=== PATIENT | male | born 1955 | race Caucasian/White ===

== ENCOUNTER 2022-07-08 06:25 | Day surgery (SDC) | payer OTHER, SELFPAY ==
[2022-07-08] VITALS (7 sets, daily range): BP systolic 97–148; BP diastolic 39–72; PULSE 52–60; RESP 12–18; TEMP 36.1–36.4; O2SAT 93–97; BMI 44.2
--- NOTE | 2022-07-08 06:56 | PCM.HP.STD ---
[facility] - General General Date of Service: 07/08/22 Chief Complaint: Screening for intestinal cancer [facility] Narrative NATALEE GALICIA, is a 66 M who presents for screening colonoscopy today. He has never had a previous one. He denies any abdominal pain. No bright red blood per rectum or melena. He does have chronic pulmonary disease. He does have morbid obesity. He denies family history of colon cancer. [facility] Medical History (Updated 07/05/22 @ 09:54 by Yarelis Marina) Arthritis Asthma Cardiology follow-up encounter COPD (chronic obstructive pulmonary disease) CPAP (continuous positive airway pressure) dependence Diabetes High cholesterol History of edema History of kidney stones History of pain when walking Hypertension Kidney stones Sleep apnea Sleep apnea with use of continuous positive airway pressure (CPAP) Wears dentures Wears glasses Home Medications aspirin 81 mg capsule 81 mg PO DAILY 08/23/21 [History Last Taken Unknown] cinnamon bark 500 mg capsule (Cinnamon) 1,000 mg PO DAILY 08/23/21 [History Last Taken Unknown] fluticasone furoate 200 mcg-vilanterol 25 mcg/dose inhalation powder (Breo Ellipta) 1 inh inhalation DAILY 08/23/21 [History Last Taken Unknown] multivitamin 1 tab PO DAILY 08/23/21 [History Last Taken Unknown] losartan 25 mg tablet 25 mg PO DAILY #90 tabs 01/05/22 [Rx Last Taken Unknown] carvedilol 12.5 mg tablet 12.5 mg PO BID #180 tabs 02/07/22 [Rx Last Taken Unknown] furosemide 20 mg tablet 20 mg PO MOTUWETHFR 07/05/22 [History Last Taken Unknown] Allergy/AdvReac Type Severity Reaction Status Date / Time azithromycin [From Zithromax] Allergy Unknown rash Verified 07/05/22 09:44 Family History Father Heart disease Mother Heart disease Surgical History (Updated 07/05/22 @ 09:54 by Yarelis Marina) History of cardiac catheterization History of carpal tunnel release History of cataract extraction History of hernia repair History of knee surgery History of total right knee replacement Social History Smoking Status: Never smoker alcohol intake: never substance use type: does not use what type of physical activity do you participate in: none ROS Constitutional Constitutional: Reports systems reviewed and no addt'l complaints, except as documented Cardiovascular Cardiovascular: Denies chest pain Respiratory/Chest Respiratory/Chest: Denies shortness of breath at rest Gastrointestinal Gastrointestinal: Denies abdominal pain, change in bowel habits, hematochezia or melena Physical Exam Const alert, oriented x3 and no apparent distress Constitutional Narrative: Morbidly obese. Unable to detect any internal organs on exam General Appearance: cooperative and comfortable Eyes General Eye: normal appearance of both eyes Neck General: normal visual inspection Chest inspection of chest normal Resp Effort and Inspection: able to speak in complete sentences and symmetric chest movement Auscultation: clear to auscultation bilaterally Cardio regular rate and regular rhythm GI soft to palpation, non-tender and non-distended Extremity no calf tenderness Neuro oriented x3 Psych thought process normal Assessment & Plan Assessment/Plan (1) Colon cancer screening: PLAN: 66-year-old gentleman presents for screening colonoscopy with possible biopsy or polypectomy as indicated. He has never had a previous one. He presents via open access today. He is aware of the technique, benefit, risk, alternatives. We will proceed as noted. Zachery Da Silva M.D., F.A.C.S.
[2022-07-08] MEDS: Lactated Ringers 1,000 ML 15 ML IV (07:12)
--- NOTE | 2022-07-08 07:30 | COLBX_PTH ---
PATIENT: NATALEE GALICIA LOC: EN U#:[id number] AGE/SX: 66/M ROOM: RE07/08/[address]: Dr. Zachery Da Silva MD : 1955 BED: DIS: 07/08/2022 SPEC #: [id number] RECD: 07/08/22 10:50 STATUS: AJIT JOSE #: [id number] ZEUS: 07/08/22 07:[address]: Zachery Da Silva DEPT: SURGICAL PATHOLOGY RECD BY: Lacie Cabrera ENTERED: 07/08/22 11:42 SP TYPE: COLON BX OTHR DR: Dr. Brandee Mejía MD Tissues: A - Cecum, NOS B - Ascending colon C - Transverse colon D - Transverse colon E - Rectum, NOS Procedures: Surgery Specimen Level IV HEADER OPERATION: Colonoscopy ? open access (MAC), biopsy, polypectomy PRE-OP DIAGNOSIS: Colon cancer screening TISSUE SUBMITTED: A ? Cecum polyps (x6) snare and biopsy, B ? Ascending polyp, C ? Proximal transverse polyp, D ? Mid transverse polyp, E ? Rectum polyp MICROSCOPIC DIAGNOSIS A. Cecum polyps, biopsy: Fragments of tubular adenoma. B. Ascending colon polyp, biopsy: Fragments of tubular adenoma. C. Proximal transverse colon polyp, biopsy: Fragments of tubular adenoma. D. Mid transverse colon polyp, biopsy: Fragments of tubular adenoma. Fragments of fecal material. E. Rectum polyp, polypectomy: Tubular adenoma. SJ:delmi 07/11/2022 MICROSCOPIC DESCRIPTION Slides are reviewed. GROSS DESCRIPTION A - Received in fixative is one container labeled with the patient's name and designated cecum polyp. The specimen consists of multiple irregular fragments of light landin soft tissue that in aggregate measure 2.5 x 0.5 x 0.1 cm. The specimen is totally submitted in one cassette. B - Received in fixative is one container labeled with the patient's name and designated ascending polyp. The specimen consists of two irregular fragments of light landin soft tissue that in aggregate measure 0.6 x 0.3 x 0.1 cm. The specimen is totally submitted in one cassette. C - Received in fixative is one container labeled with the patient's name and designated proximal transverse polyp. The specimen consists of two irregular fragments of light landin soft tissue that in aggregate measure 0.4 x 0.1 x 0.1 cm. The specimen is totally submitted in one cassette. D - Received in fixative is one container labeled with the patient's name and designated mid transverse polyp. The specimen consists of multiple irregular fragments of light landin soft tissue that in aggregate measure 2.5 x 0.5 x 0.1 cm. The specimen is totally submitted in one cassette. E - Received in fixative is one container labeled with the patient's name and designated rectum polyp. The specimen consists of a landin-pink polyp measuring 1.0 x 1.0 x 0.7 cm. The presumed base is inked. The polyp is serially sectioned. The entire specimen is submitted in one cassette. / SJ:delmi 07/08/2022 TC:1 CPT: 57234 x5
[2022-07-08 07:40] LABS: Bedside Glucose 167 mg/dL (74-106)
[2022-07-08] MEDS: 0.9% Saline Lock 10 ML Syringe IV (08:32)
--- NOTE | 2022-07-08 08:40 | OP.COLON_ITS ---
Patient Name: Otto Yusuf Procedure Date: 07/08/2022 7:24 AM Date of : 1955 Age: 66 Procedure: Colonoscopy Indications: Screening for colorectal malignant neoplasm Providers: Zachery Da Silva MD Medicines: See the Anesthesia note for documentation of the administered medications Patient Profile: Last Colonoscopy: none. The patient's first colonoscopy is today. Complications: No immediate complications. Procedure: Pre-Anesthesia Assessment: - Prior to the procedure, a History and Physical was performed, and patient medications and allergies were reviewed. The patient's tolerance of previous anesthesia was also reviewed. The risks and benefits of the procedure and the sedation options and risks were discussed with the patient. All questions were answered, and informed consent was obtained. Prior Anticoagulants: The patient has taken no previous anticoagulant or antiplatelet agents. ASA Grade Assessment: III - A patient with severe systemic disease. After reviewing the risks and benefits, the patient was deemed in satisfactory condition to undergo the procedure. After I obtained informed consent, the scope was passed under direct vision. Throughout the procedure, the patient's blood pressure, pulse, and oxygen saturations were monitored continuously. The adult colonoscope was introduced through the anus and advanced to the cecum, identified by appendiceal orifice and ileocecal valve. The colonoscopy was unusually difficult due to the patient's body habitus. The patient tolerated the procedure well. The quality of the bowel preparation was adequate to identify polyps. The ileocecal valve and the appendiceal orifice were photographed. Scope In: 7:30:59 AM Scope Withdrawal Time 0 hours 47 minutes 13 seconds Scope Out: 8:27:41 AM Total Procedure Duration Time 0 hours 56 minutes 42 seconds Findings: The digital rectal exam findings include non-thrombosed external hemorrhoids, non-thrombosed internal hemorrhoids and internal hemorrhoids that prolapse with straining, but require manual replacement into the anal canal (Grade III). Pertinent negatives include normal prostate (size, shape, and consistency). Four sessile polyps were found in the cecum. The polyps were 4 to 5 mm in size. These polyps were removed with a cold biopsy forceps. Resection and retrieval were complete. Two sessile polyps were found in the cecum. The polyps were 4 to 5 mm in size. These polyps were removed with a hot snare. Resection and retrieval were complete. A 8 mm polyp was found in the proximal ascending colon. The polyp was sessile. The polyp was removed with a cold biopsy forceps. Polyp resection was incomplete, and the resected tissue was partially retrieved. A 5 mm polyp was found in the mid transverse colon. The polyp was sessile. The polyp was removed with a hot snare. Resection and retrieval were complete. A 5 mm polyp was found in the proximal transverse colon. The polyp was sessile. The polyp was removed with a hot snare. Resection and retrieval were complete. A 9 mm polyp was found in the rectum. The polyp was sessile. The polyp was removed with a hot snare. The polyp was removed with a saline injection-lift technique using a hot snare. Resection and retrieval were complete. Scattered diverticula were found in the sigmoid colon. Impression: - Non-thrombosed external hemorrhoids, non-thrombosed internal hemorrhoids and internal hemorrhoids that prolapse with straining, but require manual replacement into the anal canal (Grade III) found on digital rectal exam. - Four 4 to 5 mm polyps in the cecum, removed with a cold biopsy forceps. Resected and retrieved. - Two 4 to 5 mm polyps in the cecum, removed with a hot snare. Resected and retrieved. - One 8 mm polyp in the proximal ascending colon, removed with a cold biopsy forceps. Polyp resection was incomplete, and the resected tissue was partially retrieved. - One 5 mm polyp in the mid transverse colon, removed with a hot snare. Resected and retrieved. - One 5 mm polyp in the proximal transverse colon, removed with a hot snare. Resected and retrieved. - One 9 mm polyp in the rectum, removed with a hot snare and removed using injection-lift and a hot snare. Resected and retrieved. - Diverticulosis in the sigmoid colon. Recommendation: - Discharge patient to home. - Resume previous diet. - Continue present medications. - Repeat colonoscopy in 1 year for surveillance. - Telephone my office for pathology results in 1 week. Procedure Code(s): --- Professional --- 49632, Colonoscopy, flexible; with removal of tumor(s), polyp(s), or other lesion(s) by snare technique 38001, 59, Colonoscopy, flexible; with biopsy, single or multiple 63024, Colonoscopy, flexible; with directed submucosal injection(s), any substance Diagnosis Code(s): --- Professional --- Z12.11, Encounter for screening for malignant neoplasm of colon K64.2, Third degree hemorrhoids K64.4, Residual hemorrhoidal skin tags D12.0, Benign neoplasm of cecum D12.2, Benign neoplasm of ascending colon D12.3, Benign neoplasm of transverse colon (hepatic flexure or splenic flexure) K62.1, Rectal polyp K57.30, Diverticulosis of large intestine without perforation or abscess without bleeding CPT copyright 2017 [employer]. All rights reserved. The codes documented in this report are preliminary and upon founder and ceo review may be revised to meet current compliance requirements. Zachery Da Silva MD 07/08/2022 8:40:04 AM This report has been signed electronically. Number of Addenda: 0 Note Initiated On: 07/08/2022 7:24 AM
--- NOTE | 2022-07-08 08:41 | OP.CCLET_ITS ---
07/08/2022 Brandee Mejía [facility] [address] [place] [address] Re : Colonoscopy procedure for Otto Yusuf Dear Dr. Mejía This procedure was performed on Friday, July 08, 2022. My impressions and recommendations are as follows: Impressions : - Non-thrombosed external hemorrhoids, non-thrombosed internal hemorrhoids and internal hemorrhoids that prolapse with straining, but require manual replacement into the anal canal (Grade III) found on digital rectal exam. - Four 4 to 5 mm polyps in the cecum, removed with a cold biopsy forceps. Resected and retrieved. - Two 4 to 5 mm polyps in the cecum, removed with a hot snare. Resected and retrieved. - One 8 mm polyp in the proximal ascending colon, removed with a cold biopsy forceps. Polyp resection was incomplete, and the resected tissue was partially retrieved. - One 5 mm polyp in the mid transverse colon, removed with a hot snare. Resected and retrieved. - One 5 mm polyp in the proximal transverse colon, removed with a hot snare. Resected and retrieved. - One 9 mm polyp in the rectum, removed with a hot snare and removed using injection-lift and a hot snare. Resected and retrieved. - Diverticulosis in the sigmoid colon. Recommendations : - Discharge patient to home. - Resume previous diet. - Continue present medications. - Repeat colonoscopy in 1 year for surveillance. - Telephone my office for pathology results in 1 week. My findings are described in the full procedure note, which is enclosed. If I can be of further assistance, please feel free to contact me at Doctor phone number(s): Work: . Sincerely, Zachery Da Silva MD 07/08/2022 8:40:04 AM This report has been signed electronically.
== END 2022-07-08 09:32 | disposition home or self-care (01) ==
LOC: EN 06:30 → AC 06:32
PROVIDERS: PCP Internal Medicine; Referring Provider Internal Medicine; Visit Provider Surgery
PROC: 0DJD8ZZ Inspection of Lower Intestinal Tract, Via Natural or Artificial Opening Endoscopic (ICD-10-PCS; CPT 45378; principal; 2022-07-08 07:25)
DX: Z12.11 Encounter for screening for malignant neoplasm of colon (principal); J44.9 Chronic obstructive pulmonary disease, unspecified; E66.01 Morbid (severe) obesity due to excess calories; Z68.41 Body mass index [BMI] 40.0-44.9, adult; K57.30 Diverticulosis of large intestine without perforation or abscess without bleeding; K64.2 Third degree hemorrhoids; K64.4 Residual hemorrhoidal skin tags; I10 Essential (primary) hypertension; G47.30 Sleep apnea, unspecified; Z79.899 Other long term (current) drug therapy; Z79.82 Long term (current) use of aspirin; D12.0 Benign neoplasm of cecum; D12.2 Benign neoplasm of ascending colon; D12.3 Benign neoplasm of transverse colon; D12.8 Benign neoplasm of rectum
CPT/HCPCS: 45385; 45380; 45381; 82962; 88305; J7120; A4216; J2405

== ENCOUNTER → 2022-07-28 | Outpatient (CLI) | payer OTHER, SELFPAY ==
--- NOTE | 2022-07-28 13:06 | RAD_ITS ---
INDICATION: PRE OP EXAMINATION/TECHNIQUE: X-RAY - XR Chest 2 Views COMPARISON: None. FINDINGS: LINES/DEVICES: None. LUNGS: No consolidation, edema or effusion. No pneumothorax. MEDIASTINUM AND CARDIOVASCULAR STRUCTURES: Cardiac silhouette not enlarged. Central airways and mediastinal contour are unremarkable. BONES AND SOFT TISSUES: Unremarkable. RAD/Chest PA and Lateral IMPRESSION: No radiographic evidence of acute cardiopulmonary disease. Electronically Signed: Colette Florentino MD at 19:16 EDT Reading Location ID and State: [id number] / Tel , Service support ,
[2022-07-28 13:34] LABS: Absolute Lymphocyte Count 1.85 X10^3/uL (0.83-4.51); Absolute Neutrophil Count 3.9 X10^3/uL (2.0-7.7); Basophil# 0.04 X10^3/uL; Basophil% 0.6 % (0-1); Eosinophil# 0.17 X10^3/uL; Eosinophils% 2.6 % (0-5); Hematocrit 44.1 % (40-54); Hemoglobin 14.7 g/dL (13.0-16.5); Lymphocyte # 1.85 X10^3/ul (0.83-4.51); Lymphocyte % 28.1 % (19-41); Mean Corp Hgb Conc 33.3 g/dL (32-36); Mean Corpuscular Hgb 31.6 pg (27.0-32.0); Mean Corpuscular Volume 94.8 fL (80-94); Mean Platelet Vol. 9.1 fl (6.2-12.0); Monocyte# 0.59 X10^3/uL; NRBC Flagged by Analyzer 0 % (0-5); Neutrophil # 3.91 X10^3/uL (2.7-7.7); Neutrophil % 59.4 % (47-70); Platelet Count 228 K/mm3 (150-450); RBC Distribution Width CV 12.8 % (11.6-14.6); RBC Distribution Width SD 44.2 fl (35.1-43.9); Red Blood Count 4.65 M/mm3 (4.6-6.2); White Blood Count 6.6 K/mm3 (4.4-11.0)
[2022-07-28 13:45] LABS: International Normalized Ratio 1.1
[2022-07-28 13:59] LABS: Hemoglobin A1c 7.5 % (3.8-5.6)
[2022-07-28 14:14] LABS: ALB/GLOB Ratio 0.9 RATIO (0.9-2.4); AST(SGOT) 22 U/L (15-37); Alanine Aminotransfer ALT/SGPT 31 U/L (16-61); Albumin, Serum 3.6 g/dL (3.2-5.0); Alkaline Phosphatase 58 U/L (45-117); Anion Gap 5 (5-15); BUN 19 mg/dL (7-18); BUN/Creat Ratio 16.7 RATIO (10-20); Calcium,Total 9.1 mg/dL (8.5-10.1); Chloride 104 mmol/L (98-107); Cholesterol 254 mg/dL (200); Creatinine, Serum 1.14 mg/dL (0.70-1.30); EST Glomerular Filtration Rate 68 mL/min (>60); Est Glom Filt Rate - Afr Amer 82 mL/min (>60); Globulin 3.9 g/dL (2.2-4.2); Glucose 157 mg/dL (74-106); High Density Lipoprotein 62 mg/dL; PSA,Total - Annual Screen 0.52 ng/mL (0.00-4.00); Potassium 3.8 mmol/L (3.5-5.1); Protein, Total 7.5 g/dL (6.4-8.2); Sodium Level 139 mmol/L (136-145); Thyroid Stim Hormone (TSH) 1.78 uIU/mL (0.358-3.74); Triglycerides 174 mg/dL; Very Low Density Lipoprotein 35 mg/dL (5-40)
== END | disposition home or self-care (01) ==
LOC: LAB 12:49
PROVIDERS: PCP Internal Medicine; Visit Provider Orthopaedic Surgery
DX: Z01.812 Encounter for preprocedural laboratory examination (principal); J44.9 Chronic obstructive pulmonary disease, unspecified; E66.01 Morbid (severe) obesity due to excess calories; E11.9 Type 2 diabetes mellitus without complications; M17.12 Unilateral primary osteoarthritis, left knee; Z96.652 Presence of left artificial knee joint; I10 Essential (primary) hypertension; E78.5 Hyperlipidemia, unspecified; G47.30 Sleep apnea, unspecified; Z79.82 Long term (current) use of aspirin; Z12.5 Encounter for screening for malignant neoplasm of prostate
CPT/HCPCS: 36415; 71046; 80053; 80061; 82306; 83036; 84153; 84443; 85025; 85610; 85730; G0103

== ENCOUNTER → 2022-08-03 | Outpatient (CLI) | payer OTHER, SELFPAY ==
[2022-08-03 11:10] LABS: Hemoglobin A1c 7.3 % (3.8-5.6)
== END | disposition home or self-care (01) ==
LOC: LAB 10:07
PROVIDERS: PCP Internal Medicine
DX: M17.12 Unilateral primary osteoarthritis, left knee (principal); Z96.652 Presence of left artificial knee joint
CPT/HCPCS: 36415; 83036

== ENCOUNTER 2023-05-25 08:44 | Day surgery (SDC) | payer MEDICARE, OTHER, SELFPAY ==
[2023-05-25] VITALS (7 sets, daily range): BP systolic 103–170; BP diastolic 68–75; PULSE 53–64; RESP 16; TEMP 36.1–36.3; O2SAT 96–99; BMI 45.0
[2023-05-25] MEDS: Lactated Ringers 1,000 ML 15 ML IV (09:09)
[2023-05-25 09:28] LABS: Bedside Glucose 132 mg/dL (74-106)
--- NOTE | 2023-05-25 09:33 | HP.PCM_ITS ---
[facility] - General General Date of Admission: 05/25/23 Date of Service: 05/25/23 Chief Complaint: Surveillance colonoscopy HPI Narrative NATALEE GALICIA, is a 67 M who presents today for surveillance colonoscopy. He had a colonoscopy approximate year ago. He had 10 polyps removed during that time. He has a past medical history hypertension, diabetes, COPD. His previous surgeries were hernia repair, orthoscopic knee surgery and history of co lonoscopies. He is not having abdominal pain. Is not having nausea. Denied any chest pain shortness of breath. Overall he is in very good health. [facility] Medical History Arthritis Asthma Cardiology follow-up encounter Chronic cough COPD (chronic obstructive pulmonary disease) CPAP (continuous positive airway pressure) dependence Diabetes High cholesterol History of edema History of kidney stones History of pain when walking Hx of adenomatous colonic polyps Hypertension Kidney stones Non-smoker Sleep apnea Sleep apnea with use of continuous positive airway pressure (CPAP) Wears dentures Wears glasses Home Medications aspirin 81 mg capsule 81 mg PO DAILY 08/23/21 [History Last Taken 05/21/23] multivitamin 1 tab PO DAILY 08/23/21 [History Last Taken 05/22/23] blood sugar diagnostic (Accu-Chek Rica Plus test strips) #100 ea 08/10/22 [Rx L ast Taken Unknown] furosemide 20 mg tablet 20 mg PO MOTUWETHFR #90 tabs 08/25/22 [Rx Last Taken 05/24/23] cinnamon bark 500 mg capsule (Cinnamon) 1,000 mg PO DAILY 01/04/23 [History Last Taken 05/24/23] fluticasone furoate 100 mcg-vilanterol 25 mcg/dose inhalation powder (Breo Ellipta) 1 inh inhalation Q24H 01/04/23 [History Last Taken 05/25/23] losartan 25 mg tablet 25 mg PO DAILY #90 tabs 01/09/23 [Rx Last Taken 05/25/23] carvedilol 12.5 mg tablet 12.5 mg PO BID #180 tabs 02/07/23 [Rx Last Taken 05/25/23] metformin 1,000 mg tablet 500 mg (1/2 x 1,000 mg) PO BID #180 tabs 02/07/23 [Rx Last Taken Unknown] Allergy/AdvReac Type Severity Reaction Status Date / Time azithromycin [From Tyloromax] Allergy Unknown rash Verified 05/25/23 08:59 Family History Father Heart disease Mother Heart disease Surgical History History of cardiac catheterization History of carpal tunnel release History of cataract extraction History of hernia repair History of knee surgery Hx of colonoscopy with polypectomy Total knee replacement status Social History (Updated 05/19/23 @ 11:36 by Poornima Palomino) household members: spouse current occupational status: retired Smoking Status: Never smoker alcohol intake: never substance use type: does not use what type of physical activity do you participate in: none ROS Constitutional Constitutional: Reports systems reviewed and no addt'l complaints, except as documented Cardiovascular Cardiovascular: Denies chest pain Respiratory/Chest Respiratory/Chest: Denies shortness of breath at rest Gastrointestinal Gastrointestinal: Denies abdominal pain, change in bowel habits, hematochezia or melena Vital Signs Vital Signs Vital Signs: 05/25/23 09:06 05/25/23 09:06 Temperature 97.3 F L Temperature Source Temporal Pulse Rate 55 L Respiratory Rate 16 Respiratory Pattern Normal Blood Pressure 170/73 H Blood Pressure Mean 105 Blood Pressure Source Monitor Blood Pressure Position Semi-Fowlers Blood Pressure Location Left Arm Pulse Ox 99 Oxygen Delivery Method Room Air Weight Weight: 287 lb 11.252 oz Body Mass Index (BMI) 45.0 Physical Exam Const alert, oriented x3 and no apparent distress Constitutional Narrative: Morbidly obese. Unable to detect any internal organs on exam General Appearance: cooperative and comfortable Eyes General Eye: normal appearance of both eyes Neck General: normal visual inspection Chest inspection of chest normal Resp Effort and Inspection: able to speak in complete sentences and symmetric chest movement Auscultation: clear to auscultation bilaterally Cardio regular rate and regular rhythm GI soft to palpation, non-tender and non-distended Extremity no calf tenderness Neuro oriented x3 Psych thought process normal Results Lab / Micro Data Labs: Laboratory Results - last 24 hr 05/25/23 09:06: POC Glucose 132 H Assessment & Plan Assessment/Plan (1) Encounter for screening for malignant neoplasm of colon: PLAN: It was explained alternatives, risk, benefits including not withstanding bleeding, infection, sepsis, perforation, need for more discharge and . He will have an ASA of 3.
--- OUTSIDE RECORDS SUMMARY | 2023-05-25 09:49 | XMS RPT_ITS | CCD ---
Author Name Unknown Address [address] [place] [address] Organization [facility] Care Team Providers Care Healthcare Representative Name Role Phone [facility]SHANTI [facility] Unavailable Unavaila ble [facility]I, [facility] Unavailable Unavaila ble ASHANTI, [facility] Unavailable Unavaila ble LISA MENA MD Primary Care Physician TRU GAMBOA Attending Unavailabl e TRU GAMBOA Referring Unavailabl e PHYSICIAN, NOT RECORDED Primary Care Unavaila ble Allergies Allergy Classification Reported Allergen(s) Allergy Type Date of Onset Reaction(s) Facility (2 sources) Azithromycin; Translations: [azithromycin] Drug Allergy [facility] Medications Current Medications Medication Drug Class(es) Dates Sig (Normalized) Sig (Original) acetaminophen 325 mg / oxyCODONE hydrochloride 5 mg oral tablet (1 source) Opioid Agonist Start: 02-11-2021 End: 02-16-2021 take 1 tablet by mouth every six hours as needed for pain Percocet 5 mg-325 mg oral tablet Dose = 1 tab(s), Oral, q6h, PRN for pain, X 5 day(s), # 12 tab(s), 0 Refill(s), Kidney stone, 125.9 Start Date: 02/11/21 Stop Date: 02/16/21 Status: Ordered aspirin 81 mg delayed release oral tablet (1 source) Platelet Aggregation Inhibitor, Nonsteroidal Anti-inflammatory Drug Start: 02-05-2017 Aspirin Enteric Coated 81 mg oral delayed release tablet Dose : 81 mg = 1 tab(s), Oral, qDay Start Date: 02/05/17 Status: Ordered Aspirin Enteric Coated 81 mg oral delayed release tablet (1 source) Start: 02-05-2017 Aspirin Enteric Coated 81 mg oral delayed release tablet Dose : 81 mg = 1 tab(s), Oral, qDay Start Date: 02/05/17 Status: Ordered Breo Ellipta 100 mcg-25 mcg/inh inhalation powder (2 sources) Start: 10-22-2019 take 1 dose by inhalation once daily Breo Ellipta 100 mcg-25 mcg/inh inhalation powder Dose = 1 puff(s), Inhalation, Daily, 0 Refill(s) Start Date: 10/22/19 Status: Ordered carvedilol 12.5 mg oral tablet (2 sources) alpha-Adrenergic Smith, beta-Adrenergic Smith Start: 10-23-2020 carvedilol 12.5 mg oral tablet Dose : 12.5 mg = 1 tab(s), Oral, BID, # 180 tab(s), 3 Refill(s), Pharmacy: [facility]/pharmacy #[id number], 170.5, cm, 10/15/20 10:42:00 EDT, Height, kg, 10/15/20 10:42:00 EDT, Dosing Weight Start Date: 10/23/20 Status: Ordered cephalexin 500 mg oral capsule (1 source) Cephalosporin Antibacterial Start: 08-12-2021 End: 08-19-2021 cephalexin 500 mg oral capsule Dose : 500 mg = 1 cap(s), Oral, q8h, X 7 day(s), # 21 cap(s), 0 Refill(s), 08/19/21 11:34:00 EDT, Pharmacy: [facility]/pharmacy #[id number], UTI symptoms, 170, cm, 08/12/21 10:54:00 EDT, Height, 130.6 Start Date: 08/12/21 Stop Date: 08/19/21 Status: Ordered cinnamon bark 500 mg oral capsule (1 source) Start: 04-26-2021 cinnamon 500 mg oral capsule Dose : 1,000 mg = 2 cap(s), Oral, BID, # 100 cap(s), 0 Refill(s) Start Date: 04/26/21 Status: Ordered dapagliflozin 5 mg oral tablet (1 source) Sodium-Glucose Cotransporter 2 Inhibitor Start: 01-13-2021 Farxiga 5 mg oral tablet Dose : 5 mg = 1 tab(s), Oral, qDay, # 30 tab(s), 3 Refill(s), Pharmacy: [facility]/pharmacy #[id number], 170, cm, 01/13/21 10:02:00 EDT, Height, kg, 01/13/21 10:02:00 EDT, Dosing Weight Start Date: 01/13/21 Status: Ordered furosemide 20 mg oral tablet (2 sources) Loop Diuretic Start: 10-23-2020 furosemide 20 mg oral tablet Dose : 20 mg = 1 tab(s), Oral, qDay, # 90 tab(s), 3 Refill(s), Pharmacy: [facility]/pharmacy #[id number], 170.5, cm, 10/15/20 10:42:00 EDT, Height, kg, 10/15/20 10:42:00 EDT, Dosing Weight Start Date: 10/23/20 Status: Ordered losartan potassium 25 mg oral tablet (2 sources) Angiotensin 2 Receptor Smith Start: 01-13-2021 losartan 25 mg oral tablet Dose : 25 mg = 1 tab(s), Oral, qDay, # 90 tab(s), 3 Refill(s), Pharmacy: [facility]/pharmacy #[id number], 170, cm, 01/13/21 10:02:00 EDT, Height, kg, 01/13/21 10:02:00 EDT, Dosing Weight Start Date: 01/13/21 Status: Ordered metFORMIN hydrochloride 1000 mg oral tablet (2 sources) Biguanide Start: 11-06-2020 metFORMIN 1000 mg oral tablet (IR) Dose : 1,000 mg = 1 tab(s), Oral, BID, # 180 tab(s), 3 Refill(s), Pharmacy: [facility]/pharmacy #[id number], 170.5, cm, 10/15/20 10:42:00 EDT, Height, kg, 10/15/20 10:42:00 EDT, Dosing Weight Start Date: 11/06/20 Status: Ordered Multivitamin preparation (2 sources) Start: 10-22-2019 take 1 tablet by mouth once daily Multivitamin Dose = 1 tab(s), Oral, Daily, 0 Refill(s) Start Date: 10/22/19 Status: Ordered ondansetron 4 mg oral tablet (1 source) Serotonin-3 Receptor Antagonist Start: 02-11-2021 End: 02-14-2021 Zofran 4 mg oral tablet Dose : 4 mg = 1 tab(s), Oral, q8h, PRN Nausea/Vomiting, X 3 day(s), # 10 tab(s), 0 Refill(s), 02/14/21 11:00:00 EDT, Kidney stone Start Date: 02/11/21 Stop Date: 02/14/21 Status: Ordered Completed/Discontinued Medications Medication Drug Class(es) Dates Sig (Normalized) Sig (Original) tamsulosin hydrochloride 0.4 mg oral capsule (2 sources) alpha-Adrenergic Smith Start: 02-11-2021 End: 02-18-2021 Flomax 0.4 mg oral capsule Dose : 0.4 mg = 1 cap(s), Oral, qDay, # 7 cap(s), 0 Refill(s), Kidney stone Start Date: 02/11/21 Stop Date: 02/18/21 Status: Ordered Problems Problem Classification Problem Date Documented Date Episodic/Chronic Calculus of urinary tract (1 source) Kidney stone; Translations: [Calculus of kidney] Onset: 1 Episodic Coronary atherosclerosis and other heart disease (2 sources) Coronary arteriosclerosis 10-22-2019 Chroni c Diabetes mellitus without complication (2 sources) Diabetes mellitus 10-22-2019 Chronic Disorders of lipid metabolism (2 sources) 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 Essential hypertension (2 sources) Hypertensive disorder 10-22-2019 Chronic Residual codes; unclassified (2 sources) Obstructive sleep apnea syndrome 02-21-2017 Chronic Unclassified (2 sources) Patient encounter status 10-22-2019 Results Test Name Value Interpretation Reference Range Facil ity Vital Signs Date Time Vital Sign Value Performing Clinician Faci lity 02-11-2021 11:49-0400 Diastolic blood pressure 74 mm[Hg] [employer] [facility] 02-11-2021 11:49-0400 Heart rate 58 /min [employer] [facility] 02-11-2021 11:49-0400 Respiratory rate 22 /min JO REICHFIELD DO [facility] 02-11-2021 11:49-0400 Systolic blood pressure 136 mm[Hg] JO REICHFIELD DO [facility] 02-11-2021 10:45-0400 Diastolic blood pressure 73 mm[Hg] JO REICHFIELD DO [facility] 02-11-2021 10:45-0400 Heart rate 60 /min JO REICHFIELD DO [facility] 02-11-2021 10:45-0400 Respiratory rate 24 /min JO REICHFIELD DO [facility] 02-11-2021 10:45-0400 Systolic blood pressure 146 mm[Hg] JO REICHFIELD DO [facility] 02-11-2021 08:53-0400 Body height 170.2 cm JO REICHFIELD DO [facility] 02-11-2021 08:53-0400 Body temperature 98.06 [degF] JO REICHFIELD DO [facility] 02-11-2021 08:53-0400 Body weight 125.9 kg JO REICHFIELD DO [facility] 10-21-2021 08:53-0400 Diastolic blood pressure 81 mm[Hg] JO DUARTE DO [facility] 02-11-2021 08:53-0400 Heart rate 61 /min JO DUARTE DO [facility] 02-11-2021 08:53-0400 Respiratory rate 22 /min JO DUARTE DO [facility] 02-11-2021 08:53-0400 Systolic blood pressure 165 mm[Hg] JO DUARTE DO [facility] Encounters Encounter Date Encounter Type Care Provider Facility Start: 08-09-2022 End: 10-12-2022 ambulatory TRU RODRIGUEZ Facility:B Start: 08-12-2021 End: 08-16-2021 [facility] Start: 02-11-2021 End: 02-11-2021 Emergency department patient visit JO DUARTE DO [facility] Start: 06-14-2017 End: 06-14-2017 [facility] Procedures Date Procedure Procedure Detail Performing Clinician History of hernia repair ROCAEL DUARTE DO Total prosthetic rep lacement of knee joint using cement JO DUARTE DO Immunizations Immunization Date Immunization Notes Care Provider Wanda quan 04-26-2021 influenza, high dose seasonal, preservative-free; Translations: [Fluad Quadrivalent PF ] [employer] [employer] [facility] 11-18-2020 COVID-19, mRNA, LNP- S, PF, 100 mcg/ 0.5 mL dose; Translations: [Moderna COVID-19 Vaccine] [facility] 10-15-2020 COVID-19, mRNA, LNP- S, PF, 100 mcg/ 0.5 mL dose; Translations: [Moderna COVID-19 Vaccine] [facility] 01-31-2020 influenza virus vaccine, unspecified formulation [facility] 02-11-2019 influenza, injectabl e, quadrivalent, preservative free; Translations: [Fluarix PF Quadrivalent ] [facility] 10-08-2018 hepatitis B vaccine, adult dosage [facility] 05-30-2018 hepatitis B vaccine, adult dosage [facility] 04-04-2018 hepatitis B vaccine, adult dosage [facility] 02-22-2017 influenza, injectabl e, quadrivalent, preservative free [facility] Payers Date Payer Category Payer Unknown [id number] 1955 Unknown [id number] Social History Date Type Detail Facility Start: 02-11-2019 Never smoked t obacco (finding) [facility] Sex Assigned At Male [facility] Discharge instructions 02-11-2021 Note Date & Type Note Facility 02-11-2021 Hospital Discharg e instructions Patient Education 02/11/2021 10:59:26 AA Blank DI (CUSTOM) Result type:CT Abd/Pelvis w/ IV Contrast Only Result date:February 11, 2021 9:45 EDT Result status:Auth (Verified) Result title:CT ABD/PELVIS W/ IV CONTRAST ONLY Performed by:BRANDEN GOSS MD on February 11, 2021 9:42 EDT Cosigned by:BRANDEN GOSS MD Verified by:BRANDEN GOSS MD on February 11, 2021 9:45 EDT Encounter info:[id number], [facility], Emergency, 02/11/2021 - Contributor system:[employer] * Final Report * [id number] ORIGINAL EXAMINATION: CT OF THE ABDOMEN AND PELVIS WITH ZIYGSXUP59/21/2021 10:00 am TECHNIQUE: CT of the abdomen and pelvis was performed with the administration of intravenous contrast. Multiplanar reformatted images are provided for review. Dose modulation, iterative reconstruction, and/or weight based adjustment of the mA/kV was utilized to reduce the radiation dose to as low as reasonably achievable. COMPARISON: None HISTORY: ORDERING SYSTEM PROVIDED HISTORY: Reason for Exam: abdominal pain FINDINGS: The heart is top-normal in size. Coronary artery calcifications seen. A subcarinal space lymph node on image number 1 is borderline in size. The liver, spleen, adrenal glands, and pancreas are within normal limits. No filling defects seen in the gallbladder. Mild delay in the right nephrogram noted. There is asymmetric right perinephric edema/stranding. A punctate right renal calculus visible on image 54. There is mild right hydronephrosis. There is a 3 mm calculus in the mid right ureter. A left renal calculus measures 3 mm. Small renal cysts noted. The large and small bowel demonstrate no obstruction. There is a rim calcified structure in the left abdomen measuring approximately 3 cm and 60 and field units. No free intraperitoneal fluid or gas is identified. The aorta is normal in caliber. There is no lymphadenopathy. Fat containing inguinal hernias noted. No filling defects seen in the urinary bladder. There is no fracture or aggressive osseous lesion. Degenerative changes are present in the spine. IMPRESSION: 1. There is a 3 mm calculus in the mid right ureter with mild right hydroureteronephrosis and a delayed right nephrogram. Other bilateral renal calculi seen. 2. Rim calcified complex lesion in the left mesentery could relate to a complex duplication cyst, chronic hematoma or other pathology. Consider routine follow-up in 6 months to ensure stability or involution. 3. Other incidental findings, as above Interpreted by: Branden Goss MD Preliminary Report By: Branden Goss MD Electronically signed By Branden Goss MD Dictated Date: 02/11/2021 10:15:46 AM Prelim Date: 02/11/2021 10:23:46 AM Sign Date: 02/11/2021 10:23:46 AM Ordering Provider: JO DUARTE IMAGE This document has an image Document Released: 04/10/2006 Document Revised: 03/27/2013 Document Reviewed: 04/11/2014 ExitCare Patient Information 2015 [employer]. This information is not intended to replace advice given to you by your health care provider. Make sure you discuss any questions you have with your health care provider. 02/11/2021 10:59:01 Kidney Stone w/ Colic Kidney Stone with Pain The sharp cramping pain on either side of your lower back and nausea/vomiting that you have are because of a small stone that has formed in the kidney. It is now passing down a narrow tube (ureter) on its way to your bladder. Once the stone reaches your bladder, the pain will often stop. But it may come back as the stone continues to pass out of the bladder and through the urethra. The stone may pass in your urine stream in one piece. The size may be 1/16 inch to 1/4 inch (1 mm to 6 mm). Or, the stone may break up into bryan fragments that you may not even notice. Once you have had a kidney stone, you are at risk of getting another one in the future. There are 4 types of kidney stones. Eighty percent are calcium stones mostly calcium oxalate but also some with calcium phosphate. The other 3 types include uric acid stones, struvite stones (from a preceding infection), and rarely, cystine stones. Most stones will pass on their own, but may take from a few hours to a few days. Sometimes the stone is too large to pass by itself. In that case, the healthcare provider will need to use other ways to remove the stone. These techniques include: Lithotripsy. This uses ultrasound waves to break up the stone. Ureteroscopy. This pushes a basket-like instrument through the urethra and bladder and into the ureter to pull out the stone. Various types of direct surgery through the skin Home care The following are general care guidelines: Drink plenty of fluids. This means at least 12, 8-ounce glasses of fluid mostly water a day. Each time you urinate, do so in a jar. Pour the urine from the jar through the strainer and into the toilet. Continue doing this until 24 hours after your pain stops. By then, if there was a kidney stone, it should pass from your bladder. Some stones dissolve into sand-like particles and pass right through the strainer. In that case, you won t ever see a stone. Save any stone that you find in the strainer and bring it to your healthcare provider to look at. It may be possible to stop certain types of stones from forming. For this reason, it is important to know what kind of stone you have. Try to stay as active as possible. This will help the stone pass. Don't stay in bed unless your pain keeps you from getting up. You may notice a red, pink, or brown color to your urine. This is normal while passing a kidney stone. If you develop pain, you may take ibuprofen or naproxen for pain, unless another medicine was prescribed. If you have chronic liver or kidney disease, talk with your healthcare provider before taking these medicines. Also talk with your provider if you've had a stomach ulcer or GI bleeding. Preventing stones Each year for the next 5 to 7 years, you are at risk that a new stone will form. Your risk is a 50% chance over this time period. The risk is higher if you have a family history of kidney stones or have certain chronic illnesses like hypertension, obesity, or diabetes. But you can make changes to your lifestyle and diet that can lower your risk for another stone. Most kidney stones are made of calcium. The following is advice for preventing another calcium stone. If you don t know the type of stone you have, follow this advice until the cause of your stone is found. Things that help: The most important thing you can do is to drink plenty of fluids each day. See home care above. Eat foods that contain phytates. These include wheat, rice, rye, barley, and beans. Phytates are substances that may lower your risk for any type of stone to form. Eat more fruits and vegetables. Choose those that are high in potassium. Eat foods high in natural citrate like fruit and low-sugar fruit juices. Having too little calcium in your diet can put you at risk for calcium kidney stones. Eat a normal amount of calcium in your diet and talk with your healthcare provider if you are taking calcium supplements. Cutting back on your calcium intake may raise your risk. New research shows that eating calcium-rich and oxalate-rich foods together lowers your risk for stones by binding the minerals in the stomach and intestines before they can reach the kidneys. Limit salt intake to 2 grams (1 teaspoon) per day. Use limited amounts when cooking, and don t add salt at the table. Processed and canned foods are usually high in salt. Spinach, rhubarb, peanuts, cashews, almonds, grapefruit, and grapefruit juice are all high oxalate foods. You should limit how much of these you eat. Or eat them with calcium-rich foods. These include dairy products, dark leafy greens, soy products, and calcium-enriched foods. Reducing the amount of animal meat and high protein foods in your diet may lower your risk for uric acid stones. Avoid excess sugar (sucrose) and fructose (sweetener in many soft drinks) in your diet. If you take vitamin C as a supplement, don't take more than 1,000 mg a day. A dietitian or your healthcare provider can give you information about changes in your diet that will help prevent more kidney stones from forming. Follow-up care Follow up with your healthcare provider, or as advised, if the pain lasts more than 48 hours. Talk with your provider about urine and blood tests to find out the cause of your stone. If you had an X-ray, CT scan, or other diagnostic test, you will be told of any new findings that may affect your care. Call 911 Call 911 if you have any of these: Weakness, dizziness, or fainting When to seek medical advice Call your healthcare provider right away if any of these occur: Pain that is not controlled by the medicine given Repeated vomiting or unable to keep down fluids Fever of 100.4 F (38 C) or higher, or as directed by your healthcare provider Passage of solid red or brown urine (can't see through it) or urine with lots of blood clots Foul-smelling or cloudy urine Unable to pass urine for 8 hours and increasing bladder pressure [id number] [employer]. [address] [place] [address], [place] [address]. All rights reserved. This information is not intended as a substitute for professional medical care. Always follow your healthcare professional's instructions. Follow Up Care 02/11/2021 08:46:00 With:MARIELA DONG MD, [facility], Urology Service Address: [address] [place] [address] [address] [place] [address] [phone] When:3-5 days With:Go to emergency room if symptoms worsen Address:Unknown When:2-4 days With:LISA MENA MD Address: [address] [facility] [place] [address]- When:2-4 days [facility] Evaluation + Plan note 10-15-2020 Laboratory Note Date & Type Note Facility 10-15-2020 Evaluation + Plan note Future Scheduled TestsProstate Specific Antigen 10/15/20Prostate Specific Antigen 07/26/21Thyroid Stimulating Hormone 07/26/21A1C Hemoglobin 07/26/21Complete Blood Count 07/26/21Lipid Profile 07/26/21Complete Metabolic Panel 07/26/21 [facility] Evaluation + Plan note Laboratory Note Date & Type Note Facility Evaluation + Plan note Future Appointments Appointment Date:04/14/2021 10:05:00 AM Scheduled Provider:LISA MENA MD Location:[facility] Appointment Type:PC OV Diagnostic Tests PendingUrine Culture 02/11/21 Future Scheduled TestsProstate Specific Antigen 10/15/20 [facility] Hospital course Narrative Note Date & Type Note Facility Hospital course Narrative No data available for this section [facility] Hospital Discharge instructions Note Date & Type Note Facility Hospital Discharge instructions No data available for this section [facility] Progress note Note Date & Type Note Facility Progress note No data available for this section [facility] Summary Purpose Family History No Family History Records FoundNo Family History Records Found Advance Directives No Advanced Directives Records FoundNo Advanced Directives Records Found Additional Source Comments (unrecognized sect ion and content) No Status Records FoundNo Status Records Found INFORMATION SOURCE (unrecogn ized section and content) DATE CREATED AUTHOR AUTHOR'S ORGANIZ ATION 10/13/2022 [facility] ([place]) Care Team (unrecognized sect ion and content) Personnel Name: LISA MENA MD Address: [address] [facility] [place] [address]- US FOR RECORDS PERTAINING TO PATIENTS WHO ARE OR HAVE BEEN ENROLLED IN A CHEMICAL DEPENDENCY/SUBSTANCEABUSE PROGRAM, SOME INFORMATION MAY BE OMITTED. This clinical summary was aggregated from multiple sources. Caution should be exercised in using it in the provision of clinical care. This summary normalizes information from multiple sources, and as a consequence, information in this document may materially change the coding, format and clinical context of patient data. In addition, data may be omitted in some cases. CLINICAL DECISIONS SHOULD BE BASED ON THE PRIMARY CLINICAL RECORDS. [employer] [facility]. provides no warranty or guarantee of the accuracy or completeness of information in this document.
--- NOTE | 2023-05-25 10:00 | COL_PTH ---
PATHOLOGY RESULTS PATIENT: NATALEE GALICIA LOC: EN U#:[id number] AGE/SX: 67/M ROOM: RE05/25/[address]: Dr. Ministerio Velazquez DO : 1955 BED: DIS: 05/25/2023 SPEC #: [id number] RECD: 05/26/23 07:24 STATUS: AJIT JOSE #: [id number] ZEUS: 05/25/23 10:[address]: Ministerio Velazquez DEPT: SURGICAL PATHOLOGY RECD BY: Shelbi Patel ENTERED: 05/26/23 07:25 SP TYPE: COLON OTHR DR: Dr. Brandee Mejía MD Tissues: SPLENIC FLEXURE Cecum, NOS COLON BIOPSY Procedures: Surgery Specimen Level IV HEADER OPERATION: Colonoscopy - open access, polypectomy PRE-OP DIAGNOSIS: Screening TISSUE SUBMITTED: A - Splenic flexure polyps x2, B - Cecal polyp biopsy, C - Hepatic flexure polyp MICROSCOPIC DIAGNOSIS A. Colonic polyp at splenic flexure, biopsy: Fragments of tubular adenoma. B. Cecal polyp, biopsy: Fragments of tubular adenoma. C. Colonic polyp at hepatic flexure, biopsy: Tubular adenoma. Fecal debris. AM:delmi 05/29/2023 MICROSCOPIC DESCRIPTION Slides are reviewed. GROSS DESCRIPTION A - Received in fixative is one container labeled with the patient's name and designated splenic flexure polyps. The specimen consists of a landin-pink polyp measuring 0.7 x 0.5 x 0.5 cm. The polyp is bisected. Also present in the container is a landin-pink soft tissue measuring 0.5 x 0.2 x 0.1 cm. The entire specimen is submitted in one cassette. B - Received in fixative is one container labeled with the patient's name and designated cecum polyp biopsy. The specimen consists of multiple irregular fragments of light landin soft tissue that in aggregate measure 0.8 x 0.2 x 0.1 cm. The specimen is totally submitted in one cassette. C - Received in fixative is one container labeled with the patient's name and designated hepatic flexure polyp. The specimen consists of multiple irregular fragments of light landin soft tissue that in aggregate measure 2.5 x 0.8 x 0.2 cm. The specimen is totally submitted in one cassette. / SJ:delmi 05/26/2023 TC:5 CPT: 03886 x3
--- NOTE | 2023-05-25 10:48 | OP.CCLET_ITS ---
05/25/2023 Brandee Mejía [facility] [address] [place] [address] Re : Colonoscopy procedure for Otto Yusuf Dear Dr. Mejía This procedure was performed on May. My impressions and recommendations are as follows: Impressions : - Diverticulosis in the recto-sigmoid colon and in the sigmoid colon. - One 5 mm polyp at the splenic flexure, removed with a cold snare. Resected and retrieved. - Two 1 to 2 mm polyps at the hepatic flexure, removed with a hot snare. Resected and retrieved. - Two 1 to 2 mm polyps in the cecum, removed with a jumbo cold forceps. Resected and retrieved. Recommendations : - Repeat colonoscopy in 3 years for surveillance. - Continue present medications. My findings are described in the full procedure note, which is enclosed. If I can be of further assistance, please feel free to contact me at . Sincerely, Ministerio Velazquez, 05/25/2023 10:47:47 AM This report has been signed electronically.
--- NOTE | 2023-05-25 10:48 | OP.COLON_ITS ---
Patient Name: Otto Yusuf Procedure Date: 05/25/2023 10:08 AM Date of : 1955 Age: 67 Procedure: Colonoscopy Indications: High risk colon cancer surveillance: Personal history of colonic polyps Providers: Ministerio Velazquez DO Medicines: Monitored Anesthesia Care Patient Profile: This is a 67 year old male. Refer to note in patient chart for documentation of history and physical. Last Colonoscopy: 1 year ago. Complications: No immediate complications. Procedure: Pre-Anesthesia Assessment: - Prior to the procedure, a History and Physical was performed, and patient medications and allergies were reviewed. The patient is competent. The risks and benefits of the procedure and the sedation options and risks were discussed with the patient. All questions were answered and informed consent was obtained. Patient identification and proposed procedure were verified by the physician in the pre-procedure area. Mental Status Examination: alert and oriented. Airway Examination: normal oropharyngeal airway and neck mobility. Respiratory Examination: clear to auscultation. CV Examination: normal. Prophylactic Antibiotics: The patient does not require prophylactic antibiotics. Prior Anticoagulants: The patient has taken no anticoagulant or antiplatelet agents. ASA Grade Assessment: II - A patient with mild systemic disease. After reviewing the risks and benefits, the patient was deemed in satisfactory condition to undergo the procedure. The anesthesia plan was to use monitored anesthesia care (MAC). Immediately prior to administration of medications, the patient was re-assessed for adequacy to receive sedatives. The heart rate, respiratory rate, oxygen saturations, blood pressure, adequacy of pulmonary ventilation, and response to care were monitored throughout the procedure. The physical status of the patient was re-assessed after the procedure. After I obtained informed consent, the scope was passed under direct vision. Throughout the procedure, the patient's blood pressure, pulse, and oxygen saturations were monitored continuously. The Colonoscope was introduced through the anus and advanced to the cecum, identified by appendiceal orifice and ileocecal valve. The colonoscopy was performed without difficulty. The patient tolerated the procedure well. The quality of the bowel preparation was adequate. The ileocecal valve, appendiceal orifice, and rectum were photographed. Scope In: 10:16:36 AM Scope Withdrawal Time 0 hours 10 minutes 11 seconds Scope Out: 10:37:16 AM Total Procedure Duration Time 0 hours 20 minutes 40 seconds Findings: The perianal and digital rectal examinations were normal. Multiple small and large-mouthed diverticula were found in the recto-sigmoid colon and sigmoid colon. A 5 mm polyp was found in the splenic flexure. The polyp was sessile. The polyp was removed with a cold snare. Resection and retrieval were complete. Verification of patient identification for the specimen was done. Estimated blood loss was minimal. Two sessile polyps were found in the hepatic flexure. The polyps were 1 to 2 mm in size. These polyps were removed with a hot snare. Resection and retrieval were complete. Verification of patient identification for the specimen was done. Estimated blood loss was minimal. Two sessile polyps were found in the cecum. The polyps were 1 to 2 mm in size. These polyps were removed with a jumbo cold forceps. Resection and retrieval were complete. Verification of patient identification for the specimen was done. Estimated blood loss was minimal. Impression: - Diverticulosis in the recto-sigmoid colon and in the sigmoid colon. - One 5 mm polyp at the splenic flexure, removed with a cold snare. Resected and retrieved. - Two 1 to 2 mm polyps at the hepatic flexure, removed with a hot snare. Resected and retrieved. - Two 1 to 2 mm polyps in the cecum, removed with a jumbo cold forceps. Resected and retrieved. Recommendation: - Repeat colonoscopy in 3 years for surveillance. - Continue present medications. Procedure Code(s): --- Professional --- 12561, Colonoscopy, flexible; with removal of tumor(s), polyp(s), or other lesion(s) by snare technique 71320, 59, Colonoscopy, flexible; with biopsy, single or multiple CPT copyright 2021 [employer]. All rights reserved. The codes documented in this report are preliminary and upon motorsports technician review may be revised to meet current compliance requirements. Ministerio Velazquez DO 05/25/2023 10:47:47 AM This report has been signed electronically. Number of Addenda: 0 Note Initiated On: 05/25/2023 10:08 AM
== END 2023-05-25 11:29 | disposition home or self-care (01) ==
LOC: EN 08:47 → AC 08:49
PROVIDERS: PCP Internal Medicine; Referring Provider Internal Medicine; Visit Provider Internal Medicine Gastroenterology
PROC: 0DJD8ZZ Inspection of Lower Intestinal Tract, Via Natural or Artificial Opening Endoscopic (ICD-10-PCS; CPT 45378; principal; 2023-05-25 09:55)
DX: Z12.11 Encounter for screening for malignant neoplasm of colon (principal); J44.9 Chronic obstructive pulmonary disease, unspecified; E66.01 Morbid (severe) obesity due to excess calories; Z68.42 Body mass index [BMI] 45.0-49.9, adult; E11.9 Type 2 diabetes mellitus without complications; D12.0 Benign neoplasm of cecum; D12.3 Benign neoplasm of transverse colon; E78.00 Pure hypercholesterolemia, unspecified; K57.30 Diverticulosis of large intestine without perforation or abscess without bleeding; I10 Essential (primary) hypertension; Z79.82 Long term (current) use of aspirin; Z79.84 Long term (current) use of oral hypoglycemic drugs; Z79.899 Other long term (current) drug therapy; Z86.010 Personal history of colon polyps
CPT/HCPCS: 45380; 45385; 82962; 88305; J7120; J2405

== ENCOUNTER → 2023-06-09 | Outpatient (CLI) | payer MEDICARE, OTHER, SELFPAY ==
--- NOTE | 2023-06-09 10:45 | RAD_ITS ---
INDICATION: COUGH EXAMINATION/TECHNIQUE: X-RAY - XR Chest 2 Views COMPARISON: 07/28/2022 FINDINGS: Streaky opacities in the right lung base. Tortuous and calcified thoracic aorta. The heart is mildly enlarged. No pleural effusion or pneumothorax. Degenerative changes of the thoracic spine. RAD/Chest PA and Lateral IMPRESSION: Streaky opacities in the right lung base may represent atelectasis versus infection. Electronically Signed: Gary Posadas MD at 17:19 EST ,
== END | disposition home or self-care (01) ==
LOC: MTRAD 10:38
PROVIDERS: PCP Internal Medicine; Referring Provider Internal Medicine Pulmonary Disease; Visit Provider Internal Medicine Pulmonary Disease
DX: R05.9 Cough, unspecified (principal); R06.02 Shortness of breath
CPT/HCPCS: 71046

== ENCOUNTER → 2023-06-20 | Outpatient (CLI) | payer MEDICARE, OTHER, SELFPAY ==
[2023-06-20 12:50] LABS: Vitamin D,25 Hydroxy 33.9 ng/mL
[2023-06-20 12:56] LABS: Erythrocyte Sedimentation Rate 8 mm/hr (0-20)
[2023-06-20 13:00] LABS: CRP 8.98 mg/L (0.0-3.0); Rheumatoid Factor < 10.0 IU/mL (<15)
[2023-06-20 14:05] LABS: ALB/GLOB Ratio 0.9 RATIO (0.9-2.4); AST(SGOT) 18 U/L (15-37); Alanine Aminotransfer ALT/SGPT 26 U/L (16-61); Albumin, Serum 3.4 g/dL (3.2-5.0); Alkaline Phosphatase 55 U/L (45-117); Anion Gap 7 (5-15); BUN 13 mg/dL (7-18); BUN/Creat Ratio 11.8 RATIO (10-20); Calcium,Total 9.3 mg/dL (8.5-10.1); Chloride 108 mmol/L (98-107); Cholesterol 227 mg/dL (200); EST Glomerular Filtration Rate 70 mL/min (>60); Est Glom Filt Rate - Afr Amer 85 mL/min (>60); Globulin 3.7 g/dL (2.2-4.2); Glucose 158 mg/dL (74-106); High Density Lipoprotein 51 mg/dL; Potassium 3.7 mmol/L (3.5-5.1); Protein, Total 7.1 g/dL (6.4-8.2); Sodium Level 140 mmol/L (136-145); Triglycerides 257 mg/dL; Very Low Density Lipoprotein 51 mg/dL (5-40)
[2023-06-21 10:38] LABS: Hemoglobin A1c 6.8 % (3.8-5.6)
[2023-06-21 12:09] LABS: ANTINUCLEAR ANTIBODIES DIRECT Negative (Negative)
[2023-06-21 15:08] LABS: Angiotensin Convert Enzyme 47 U/L (14-82)
== END | disposition home or self-care (01) ==
LOC: LAB 11:21
PROVIDERS: PCP Internal Medicine; Referring Provider Internal Medicine Pulmonary Disease; Visit Provider Internal Medicine Pulmonary Disease
DX: J06.9 Acute upper respiratory infection, unspecified (principal); E55.9 Vitamin D deficiency, unspecified; Z13.220 Encounter for screening for lipoid disorders; R73.9 Hyperglycemia, unspecified
CPT/HCPCS: 36415; 80053; 80061; 82164; 82306; 83036; 85652; 86038; 86140; 86431

== ENCOUNTER → 2023-06-27 | Outpatient (CLI) | payer MEDICARE, OTHER, SELFPAY ==
--- NOTE | 2023-06-27 08:24 | CT_ITS ---
STUDY: CTA CHEST REASON FOR EXAM: Male, 67 years old. SOB, COUGH RADIATION DOSAGE (If Supplied By Facility): CTDIvol = ( 12.66 ) mGy, DLP = ( 567.16 ) mGycm TECHNIQUE: The examination was performed with the intravenous administration of IV 100mL Isovue-370. Post-processing of the angiographic images was performed, with multiplanar reformation and 3D reconstruction. Individualized dose optimization techniques were used for this CT. COMPARISON: No relevant prior comparison study available FINDINGS: Normal enhancement of the main pulmonary artery and right and left pulmonary arteries. There is limited enhancement of the bilateral peripheral pulmonary arteries. There is no demonstrated central pulmonary embolism. There is atherosclerotic tortuosity of the aortic arch and descending thoracic aorta. There is no demonstrated aortic dissection. There is borderline cardiac cardiomegaly. No evidence of pericardial effusion. Mild coronary calcifications. Few mediastinal nodes in the right subcarinal region. Normal hilar regions. Normal visualized trachea and bronchi. There are no pulmonary infiltrates. There are no pleural effusions. Normal chest wall structures. Degenerative changes of the thoracic spine. No demonstrated acute changes in the visualized upper abdomen. CT/CTA Chest W/WO Contrast IMPRESSION: 1. No evidence of central pulmonary embolism. Suboptimal evaluation of the peripheral branches. 2. No acute pulmonary infiltrates or pleural effusions. 3. Few mediastinal nodes which could be reactive. Electronically Signed: German Dodge MD at 13:16 EST ,
== END | disposition home or self-care (01) ==
LOC: CT 08:18
PROVIDERS: PCP Internal Medicine; Referring Provider Internal Medicine Pulmonary Disease; Visit Provider Internal Medicine Pulmonary Disease
DX: R06.02 Shortness of breath (principal); R05.9 Cough, unspecified
CPT/HCPCS: 71275; Q9967

== ENCOUNTER → 2023-08-23 | Outpatient (CLI) | payer MEDICARE, OTHER, SELFPAY ==
--- NOTE | 2023-08-23 12:22 | EKG12_ITS ---
Test Reason : SOB, CHEST SORENESS Blood Pressure : / mmHG Vent. Rate : 064 BPM Atrial Rate : 064 BPM P-R Int : 252 ms QRS Dur : 142 ms QT Int : 452 ms P-R-T Axes : -02 -45 -11 degrees QTc Int : 466 ms Sinus rhythm with 1st degree A-V block Right bundle branch block Left anterior fascicular block Bifascicular block Abnormal ECG Confirmed by CHEYENNE VELASQUEZ, NATALEE ([id number]), editor continuity and script TRINI CAPUTO ([id number]) on 08/24/2023 11:31:40 AM Referred By: MINA Confirmed By:NATALEE QUINN MD
[2023-08-23 13:46] LABS: ALB/GLOB Ratio 0.9 RATIO (0.9-2.4); AST(SGOT) 16 U/L (15-37); Alanine Aminotransfer ALT/SGPT 30 U/L (16-61); Albumin, Serum 3.2 g/dL (3.2-5.0); Alkaline Phosphatase 56 U/L (45-117); Anion Gap 3 (5-15); BUN 13 mg/dL (7-18); BUN/Creat Ratio 11.5 RATIO (10-20); Calcium,Total 9.1 mg/dL (8.5-10.1); Chloride 104 mmol/L (98-107); Creatinine, Serum 1.13 mg/dL (0.70-1.30); EST Glomerular Filtration Rate 68 mL/min (>60); Est Glom Filt Rate - Afr Amer 83 mL/min (>60); Globulin 3.6 g/dL (2.2-4.2); Glucose 215 mg/dL (74-106); Magnesium 1.7 mg/dL (1.6-2.6); Protein, Total 6.8 g/dL (6.4-8.2); Sodium Level 138 mmol/L (136-145)
[2023-08-23 13:59] LABS: BNP,B-Type NATRIURETIC PEPTIDE 54.2 pg/mL (0-100)
== END | disposition home or self-care (01) ==
PROVIDERS: PCP Internal Medicine; Visit Provider Internal Medicine
DX: R06.09 Other forms of dyspnea (principal)
CPT/HCPCS: 36415; 80053; 83735; 83880; 93005

== ENCOUNTER 2023-08-29 01:59 | Emergency (ER) | payer MEDICARE, OTHER, SELFPAY ==
[2023-08-29 02:00] VITALS: PULSE 96; RESP 16; TEMP 36.6; O2SAT 97; BMI 45.9
--- NOTE | 2023-08-29 02:16 | RAD_ITS ---
INDICATION: Chest pain EXAMINATION/TECHNIQUE: X-RAY - XR Chest 1 View COMPARISON: Chest x-ray from 06/09/2023 FINDINGS: LINES/DEVICES: None. LUNGS: No pulmonary edema or focal airspace consolidation. No sizable pleural effusion. No pneumothorax detected. Stable mildly elevated right hemidiaphragm. MEDIASTINUM AND CARDIOVASCULAR STRUCTURES: Heart size within normal limits for imaging technique. Mediastinal contours unremarkable. BONES AND SOFT TISSUES: No acute findings. RAD/Chest 1 View (Portable) IMPRESSION: No radiographic evidence of acute cardiopulmonary disease. Electronically Signed: Higinio Cristina MD at 4:03 EDT ,
--- NOTE | 2023-08-29 02:16 | EKG12_ITS ---
Test Reason : CP Blood Pressure : / mmHG Vent. Rate : 095 BPM Atrial Rate : 095 BPM P-R Int : 236 ms QRS Dur : 138 ms QT Int : 386 ms P-R-T Axes : -14 -45 011 degrees QTc Int : 485 ms Sinus rhythm with 1st degree A-V block Right bundle branch block Left anterior fascicular block Bifascicular block Abnormal ECG Confirmed by Jonas Perze ([id number]), editorial assistant XIN VARGHESE ([id number]) on 08/29/2023 10:04:50 AM Referred By: Storm Hunt Confirmed By:Jonas Perez
--- NOTE | 2023-08-29 02:17 | EDS_ITS ---
HPI History of Present Illness Chief Complaint: Chest Pain Informant: patient and spouse/S.O. Narrative Narrative: 68-year-old male for the last several months has been having left-sided chest pain that is nonpleuritic and nonpositional, intermittent discomfort and tingling down his left upper extremity, dyspnea, and he states it all started with a cough in February that is unchanged and not going away, despite pulmonary workup and pulmonary medications that are really not seem to change anything. He had PFTs, he is scheduled for an echo tomorrow because of the fact that he is not responding to any of the pulmonary medications and it seem like a pulmonary issue at first, he has not had a stress test or cath since the beginning of all of this. When asking the patient why he presents this morning at 2 AM, he points to his . He does admit that the left arm discomfort and left upper chest discomfort are worse tonight than they had been but the nature of the symptoms is no different and he has no new symptoms. She states they basically do not kn ow what is causing this and so she is really concerned and does not want to get this addressed before it is too late. Patient states he had an EKG 2 days ago. [facility] Medical History Arthritis Asthma Cardiology follow-up encounter Chronic cough COPD (chronic obstructive pulmonary disease) CPAP (continuous positive airway pressure) dependence Diabetes High cholesterol History of edema History of kidney stones History of pain when walking Hx of adenomatous colonic polyps Hypertension Kidney stones Non-smoker Sleep apnea Sleep apnea with use of continuous positive airway pressure (CPAP) Wears dentures Wears glasses Home Medications aspirin 81 mg capsule 81 mg PO DAILY 08/23/21 [History Last Taken 05/21/23] multivitamin 1 tab PO DAILY 08/23/21 [History Last Taken 05/22/23] blood sugar diagnostic (Accu-Chek Rica Plus test strips) #100 ea 08/10/22 [Rx Last Taken Unknown] cinnamon bark 500 mg capsule (Cinnamon) 1,000 mg PO DAILY 01/04/23 [History Last Taken 05/24/23] fluticasone furoate 100 mcg-vilanterol 25 mcg/dose inhalation powder (Breo Ellipta) 1 inh inhalation Q24H 01/04/23 [History Last Taken 05/25/23] losartan 25 mg tablet 25 mg PO DAILY #90 tabs 01/09/23 [Rx Last Taken 05/25/23] carvedilol 12.5 mg tablet 12.5 mg PO BID #180 tabs 02/07/23 [Rx Last Taken 05/25/23] metformin 1,000 mg tablet 500 mg (1/2 x 1,000 mg) PO BID #180 tabs 02/07/23 [Rx Last Taken Unknown] furosemide 20 mg tablet 20 mg PO MOTUWETHFR #90 tabs 07/21/23 [Rx Last Taken Unknown] esomeprazole magnesium 40 mg capsule,delayed release 40 mg PO DAILY 08/23/23 [History Last Taken Unknown] loratadine 10 mg tablet 10 mg PO DAILY 08/23/23 [History Last Taken Unknown] montelukast 10 mg tablet 10 mg PO DAILY 08/23/23 [History Last Taken Unknown] omega-3 fatty acids 1,000 mg capsule 1,000 mg PO DAILY 08/23/23 [History Last Taken Unknown] Allergy/AdvReac Type Severity Reaction Status Date / Time azithromycin [From Zithromax] Allergy Unknown rash Verified 08/29/23 02:00 Family History Father Heart disease Mother Heart disease Surgical History History of cardiac catheterization History of carpal tunnel release History of cataract extraction History of hernia repair History of knee surgery Hx of colonoscopy with polypectomy Total knee replacement status Social History household members: spouse current occupational status: retired Smoking Status: Never smoker alcohol intake: never substance use type: does not use what type of physical activity do you participate in: none ROS ROS ED Constitutional Constitutional ED: Denies chills or fever(s) Eyes Eyes: Denies change in vision or diplopia ENT ENT ED: Denies rhinorrhea or sore throat Cardiovascular Cardiovascular: Reports chest pain and leg edema; Denies orthopnea or palpitations Respiratory/Chest Respiratory/Chest: Reports cough, dyspnea and sputum; Denies orthopnea Gastrointestinal Gastrointestinal: Denies abdominal pain, diarrhea, nausea or vomiting Genitourinary Genitourinary ED: Denies dysuria or hematuria Musculoskeletal Musculoskeletal: Denies back pain or neck pain Integumentary Denies abscess or rash Neurologic Neurologic: Denies headache(s), paresthesias or weakness Psychiatric Psychiatric: Denies suicidal ideation or suicidal thoughts EXAM Physical Exam Const Vital Signs: 08/29/23 02:00 08/29/23 02:18 08/29/23 03:00 Temperature 97.9 F Temperature Source Temporal Pulse Rate 96 87 Respiratory Rate 16 21 H Respiratory Pattern Blood Pressure 135/67 H Blood Pressure Mean 89 Pulse Ox 97 97 Oxygen Delivery Method Room Air Room Air 08/29/23 02:24 Temperature Temperature Source Pulse Rate 91 Respiratory Rate 20 H Respiratory Pattern Normal Blood Pressure Blood Pressure Mean Pulse Ox Oxygen Delivery Method Positive well nourished and well developed General Appearance ED: well developed and NAD HEENT Reports moist mucous membranes normocephalic and atraumatic Eyes PERRL and EOMs intact bilaterally Neck full ROM, no lymphadenopathy, supple and no JVD Resp Resp Narrative: Tachypneic but in no respiratory distress. Diffuse expiratory wheezes and mildly prolonged expiratory phase. Equal breath sounds bilaterally. Cardio regular rate, regular rhythm and no murmurs GI non-tender and non-distended Auscultation: normoactive bowel sounds Palpation: soft Back/Spine no CVA tenderness General Back: other FROM Extremity normal to inspection General Extremety ED: Yes edema; Negative for pulses abnormal or tenderness General Extremity: edema bilateral lower extremity Details: mild; Negative for pulses abnormal Neuro oriented x3, CN's II-XII intact bilaterally and no sensory deficits noted Sensorium / Orientation: awake and alert Motor Exam: strength 5/5 throughout Skin no rashes or lesions noted and no wounds Heart Score History: Slightly/Non-Suspicious ECG: Nonspecific Repolarization Age: >/= 65 years Risk Factors: 1 or 2 Risk Factors Troponin: </= Normal Limit Score: 4 MDM MDM MDM Narrative Medical decision making narrative: Workup shows unchanged EKG, normal troponin and single digits, and normal BNP 57. Mild leukocytosis. He was given a duo nebulizer treatment, he thinks he may be breathing a little better on reevaluation, but I am still coughing. We discussed that this is not a cough suppressant, sometimes it opens up the airways and allows people to cough more. At this time, with his chronic symptoms relatively and negative acute cardiac labs, I do not think he needs to be admitted to the hospital, I think he can be safely discharged home to get his echocardiogram as scheduled later today, close follow-up advised. Chest x-ray 1 view on my interpretation shows chronic changes but no acute infiltrates or abnormality radiology was in agreement. I do not think he needs to be ree valuated for PE since he had a CTA that was negative 2 months ago for the same symptoms. Also he has albuterol aerosol machine at home so I do not think he needs a prescription for anything right now. History & Record Review Additional record(s) reviewed:: Prior labs (CTA chest 06/2023 negative for PE and infiltrates, few mediastinal lymphadenopathy seen) and Other (PFT results/pulmonary notes not available to me at this time) Lab Data Attestation: I reviewed the patient's lab results. Labs: Laboratory Results - last 24 hr 08/29/23 02:10 WBC 12.0 H RBC 4.16 L Hgb 13.1 Hct 38.4 L MCV 92.3 MCH 31.5 MCHC 34.1 RDW Std Deviation 43.8 RDW Coeff of Rafa 13.0 Plt Count 186 MPV 9.3 Immature Gran % (Auto) 0.700 Neut % (Auto) 78.6 H Lymph % (Auto) 10.8 L [place] % (Auto) 8.6 Eos % (Auto) 1.0 Baso % (Auto) 0.3 Absolute Neuts (auto) 9.5 H Absolute Lymphs (auto) 1.30 Nucleated RBC % 0 Sodium 138 Potassium 4.0 Chloride 104 Carbon Dioxide 25.0 Anion Gap 9 BUN 15 Creatinine 1.19 Estim Creat Clear Calc 75.89 Est GFR (MDRD) Af Amer 78 Est GFR (MDRD) Non-Af 64 BUN/Creatinine Ratio 12.6 Glucose 215 H Calcium 9.2 Troponin I High Sens 9 B-Natriuretic Peptide 57.3 Radiography Diagnostic Testing: Clinical Impression(s) from Imaging Studies Chest X-Ray 08/29/23 02:16 IMPRESSION: No radiographic evidence of acute cardiopulmonary disease. Electronically Signed: Higinio Cristina MD at 4:03 EDT , Rhythm Strip Rhythm Strip: Sinus Rhythm Rate: 95 Ectopy: None EKG Initial EKG: Attestation: I personally reviewed and interpreted this EKG as follows: Interpretation: Sinus Rhythm, No Acute Injury Pattern, RBBB, LAFB, AV Block (1st deg) and Non-Specific ST Changes Prior EKG tracings: available for review Prior: Unchanged Discharge Plan Triage Chief Complaint: Chest Pain ED Provider: Storm Hunt Dx/Rx/DC Orders Clinical Impression: Left-sided chest pain, Chronic cough Instructions: ED Chest Pain, Uncertain Cause Prescriptions: No Action aspirin 81 mg capsule 81 mg PO DAILY multivitamin Tablet 1 tab PO DAILY cinnamon bark [Cinnamon] 500 mg capsule 1,000 mg PO DAILY fluticasone furoate-vilanterol [Breo Ellipta] 100-25 mcg/dose blister with device 1 inh inhalation Q24H Patient Comments: TAKE 1 PUFF BY MOUTH EVERY DAY omega-3 fatty acids 1,000 mg capsule 1,000 mg PO DAILY esomeprazole magnesium 40 mg capsule,delayed release(DR/EC) 40 mg PO DAILY montelukast 10 mg tablet 10 mg PO DAILY loratadine 10 mg tablet 10 mg PO DAILY (DME) Accu-Chek Rica Plus test strp Strip See Rx Instructions .Route Qty: 100 3RF Rx Instructions: BID and PRN losartan 25 mg tablet 25 mg PO DAILY Qty: 90 3RF metformin 1,000 mg tablet 500 mg PO BID Qty: 180 1RF carvedilol 12.5 mg tablet 12.5 mg PO BID Qty: 180 3RF Rx Instructions: must administer with a meal/food furosemide 20 mg tablet 20 mg PO MOTUWETHFR Qty: 90 1RF Primary Care Provider: Brandee Mejía Referrals: Brandee Mejía MD [Primary Care Provider] - (As directed, and echo as directed today) Disposition Disposition: Home, Self Care
[2023-08-29 02:24] VITALS: PULSE 91; RESP 20
[2023-08-29] MEDS: Ipratropium/Albuterol Sulfate 3 ML AMPUL.NEB INHALATION (02:24)
[2023-08-29 02:26] LABS: Absolute Neutrophil Count 9.5 X10^3/uL (2.0-7.7); Basophil# 0.04 X10^3/uL; Basophil% 0.3 % (0-1); Eosinophil# 0.12 X10^3/uL; Hematocrit 38.4 % (40-54); Hemoglobin 13.1 g/dL (13.0-16.5); Lymphocyte % 10.8 % (19-41); Mean Corp Hgb Conc 34.1 g/dL (32-36); Mean Corpuscular Hgb 31.5 pg (27.0-32.0); Mean Corpuscular Volume 92.3 fL (80-94); Mean Platelet Vol. 9.3 fl (6.2-12.0); Monocyte# 1.04 X10^3/uL; Monocyte% 8.6 % (0-10); NRBC Flagged by Analyzer 0 % (0-5); Neutrophil # 9.46 X10^3/uL (2.7-7.7); Neutrophil % 78.6 % (47-70); Platelet Count 186 K/mm3 (150-450); RBC Distribution Width SD 43.8 fl (35.1-43.9); Red Blood Count 4.16 M/mm3 (4.6-6.2)
[2023-08-29 02:47] LABS: Anion Gap 9 (5-15); BUN 15 mg/dL (7-18); BUN/Creat Ratio 12.6 RATIO (10-20); Calcium,Total 9.2 mg/dL (8.5-10.1); Chloride 104 mmol/L (98-107); Creatinine, Serum 1.19 mg/dL (0.70-1.30); EST Glomerular Filtration Rate 64 mL/min (>60); Est Glom Filt Rate - Afr Amer 78 mL/min (>60); Estimated Creatinine Clearance 75.89 ml/min; Glucose 215 mg/dL (74-106); Sodium Level 138 mmol/L (136-145); Troponin-I HS 9 pg/mL (3.0-78.0)
[2023-08-29 02:48] LABS: BNP,B-Type NATRIURETIC PEPTIDE 57.3 pg/mL (0-100)
[2023-08-29 03:00] VITALS: BP 135/67; PULSE 87; RESP 21; O2SAT 97
[2023-08-29 05:22] VITALS: BP 125/69; PULSE 80; RESP 16; TEMP 36.4; O2SAT 93
== END 2023-08-29 05:26 | disposition home or self-care (01) ==
PROVIDERS: Emergency Provider Emergency Medicine; PCP Internal Medicine; Referring Provider Emergency Medicine; Visit Provider Emergency Medicine
DX: R07.89 Other chest pain (principal); J44.9 Chronic obstructive pulmonary disease, unspecified; E11.9 Type 2 diabetes mellitus without complications; R05.3 Chronic cough; E78.00 Pure hypercholesterolemia, unspecified; I10 Essential (primary) hypertension; G47.30 Sleep apnea, unspecified; Z99.89 Dependence on other enabling machines and devices; Z79.82 Long term (current) use of aspirin; Z79.51 Long term (current) use of inhaled steroids; Z79.84 Long term (current) use of oral hypoglycemic drugs; Z98.49 Cataract extraction status, unspecified eye; Z96.659 Presence of unspecified artificial knee joint
CPT/HCPCS: 71045; 80048; 83880; 84484; 85025; 93005; 94640; 99283; A4216

== ENCOUNTER → 2023-08-30 | Outpatient (CLI) | payer MEDICARE, OTHER, SELFPAY ==
--- NOTE | 2023-08-30 12:51 | ECHOCS_ITS ---
Reason For Study: DYSPNEA Procedure This was a 2D Doppler, Color Flow transthoracic echocardiogram. The study was technically difficult. Contrast injection was performed. Exam performed in department. Left Ventricle Normal LV size. Mild concentric left ventricular hypertrophy. Left ventricular systolic function is normal. The estimated ejection fraction is 55 %. Stage 1 diastolic dysfunction. No regional wall motion abnormalities noted. Right Ventricle Normal RV size. Normal systolic function. Atria Normal left atrium. Normal right atrium. Mitral Valve Normal mitral valve. Tricuspid Valve Normal tricuspid valve. Mild tricuspid valve insufficiency. Pulmonary artery systolic pressure is 21 mmHg. Aortic Valve Mild focal aortic valve calcification. Peak aortic valve gradient 26 mmHg. Mean aortic valve gradient 16 mmHg. Mild aortic stenosis. Pulmonic Valve Normal pulmonic valve. Great Vessels Mild to moderately dilated aortic root. The pulmonary artery is normal size. Normal inferior vena cava. Pericardium/Pleural No pericardial effusion. Medication 22 gauge I.V. with prn adaptor inserted into right arm. Diluted definity 2ml given slow IV push to enhance endocardial definition. MMode/2D Measurements & Calculations LVIDd: 5.1 cm IVSd: 1.4 cm LVOT diam: 2.2 cm LVIDs: 3.2 cm LVPWd: 1.2 cm RVDd: 4.0 cm FS: 37.1 % LVOT area: 4.0 cm2 Ao root diam: 4.1 cm LAV(MOD-bp): 44.8 ml LVAd ap4: 37.0 cm2 LAV(MOD-bp) Indexed: 18.7 ml/m2 LVLd ap4: 8.4 cm LAV(MOD-sp2): 36.2 ml EDV(MOD-sp4): 132.8 ml LAV(MOD-sp4): 46.7 ml EDV(sp4-el): 137.6 ml LVAs ap4: 22.3 cm2 LVLs ap4: 6.9 cm ESV(MOD-sp4): 58.2 ml ESV(sp4-el): 61.3 ml EF(MOD-sp4): 56.2 % EF(sp4-el): 55.4 % LVAd ap2: 33.5 cm2 SV(MOD-sp4): 74.6 ml SV(MOD-sp2): 62.0 ml LVLd ap2: 8.2 cm EDV(MOD-sp2): 112.4 ml EDV(sp2-el): 116.7 ml LVAs ap2: 20.5 cm2 LVLs ap2: 6.6 cm ESV(MOD-sp2): 50.4 ml ESV(sp2-el): 54.0 ml EF(MOD-sp2): 55.2 % SV(sp4-el): 76.3 ml LA dimension(2D): 4.2 cm LA A4 area: 17.5 cm2 RA A4 area: 15.5 cm2 TAPSE: 1.8 cm Time Measurements MV dec time: 0.26 sec Doppler Measurements & Calculations MV E max shoaib: 111.5 cm/sec Lat Peak E' Shoaib: 8.7 cm/sec Med Peak E' Shoaib: 6.9 cm/sec MV A max shoaib: 144.8 cm/sec E/E' lat: 12.8 E/E' med: 16.1 MV E/A: 0.77 MV V2 max: 143.5 cm/sec Ao V2 max: 254.8 cm/sec MV max P.2 mmHg MV dec slope: 426.7 cm/sec2 Ao max P.0 mmHg MV V2 mean: 105.7 cm/sec Ao V2 mean: 193.8 cm/sec MV mean P.6 mmHg Ao mean P.1 mmHg MV V2 VTI: 32.0 cm Ao V2 VTI: 52.6 cm AV (velocity ratio): 0.40 MVA(VTI): 2.6 cm2 NASRIN(I,D): 1.6 cm2 NASRIN(V,D): 1.6 cm2 LV V1 max: 102.5 cm/sec SV(LVOT): 83.8 ml PA V2 max: 72.1 cm/sec LV V1 max P.2 mmHg PA max PG (full): 0.82 mmHg LV V1 mean P.3 mmHg LV V1 mean: 72.0 cm/sec LV V1 VTI: 21.2 cm TR max shoaib: 214.3 cm/sec TR max P.4 mmHg ECHO/Echo Complete W/ Contrast Interpretation Summary Normal LV size. Left ventricular systolic function is normal. Mild concentric left ventricular hypertrophy. The estimated ejection fraction is 55 %. Stage 1 diastolic dysfunction. Mild to moderately dilated aortic root. Mean aortic valve gradient 16 mmHg. Mild focal aortic valve calcification. Ordering Physician: Brandee Mejía Referring Physician: Brandee Mejía Performed By: Elham Nick RDCS
== END | disposition home or self-care (01) ==
LOC: CVS 12:51
PROVIDERS: PCP Internal Medicine; Referring Provider Internal Medicine; Visit Provider Internal Medicine
DX: Z12.11 Encounter for screening for malignant neoplasm of colon (principal); R06.09 Other forms of dyspnea
CPT/HCPCS: 93306; Q9957; A4216; C8929

== ENCOUNTER 2023-09-05 17:57 | Emergency (ER) | payer MEDICARE, OTHER, SELFPAY ==
[2023-09-05 17:58] VITALS: BP 157/85; PULSE 76; RESP 18; TEMP 36.1; O2SAT 95; BMI 45.6
--- NOTE | 2023-09-05 18:49 | EDS_ITS ---
HPI History of Present Illness Chief Complaint: Cellulitis Detail of Chief Complaint: Redness and swelling to the right foot Informant: patient Narrative Narrative: Patient presents with redness and swelling to the right foot that he noticed yesterday. He denies any injury. He denies any pain. He had no fevers or chills or sweats. Patient is a diabetic. No history of gout. Patient went to urgent care and was referred to the emergency department. [facility] Medical History Arthritis Asthma Cardiology follow-up encounter Chronic cough COPD (chronic obstructive pulmonary disease) CPAP (continuous positive airway pressure) dependence Diabetes High cholesterol History of edema History of kidney stones History of pain when walking Hx of adenomatous colonic polyps Hypertension Kidney stones Non-smoker Sleep apnea Sleep apnea with use of continuous positive airway pressure (CPAP) Wears dentures Wears glasses Home Medications ?Medication ?Instructions ?Recorded ?Last Taken ?Type aspirin 81 mg capsule 81 mg PO DAILY 08/23/21 05/21/23 History multivitamin 1 tab PO DAILY 08/23/21 05/22/23 History blood sugar diagnostic (Accu-Chek #100 ea 08/10/22 Unknown Rx Rica Plus test strips) cinnamon bark 500 mg capsule 1,000 mg PO DAILY 01/04/23 05/24/23 History (Cinnamon) fluticasone furoate 100 1 inh inhalation Q24H 01/04/23 05/25/23 History mcg-vilanterol 25 mcg/dose inhalation powder (Breo Ellipta) losartan 25 mg tablet 25 mg PO DAILY #90 tabs 01/09/23 05/25/23 Rx carvedilol 12.5 mg tablet 12.5 mg PO BID #180 tabs 02/07/23 05/25/23 Rx metformin 1,000 mg tablet 500 mg (1/2 x 1,000 mg) PO BID 02/07/23 Unknown Rx #180 tabs furosemide 20 mg tablet 20 mg PO MOTUWETHFR #90 tabs 07/21/23 Unknown Rx esomeprazole magnesium 40 mg 40 mg PO DAILY 08/23/23 Unknown History capsule,delayed release loratadine 10 mg tablet 10 mg PO DAILY 08/23/23 Unknown History montelukast 10 mg tablet 10 mg PO DAILY 08/23/23 Unknown History omega-3 fatty acids 1,000 mg 1,000 mg PO DAILY 08/23/23 Unknown History capsule cephalexin 500 mg capsule 500 mg PO Q6 #40 CAPSULES 09/05/23 Unknown Rx sulfamethoxazole 800 1 tab PO BID #20 TABLETS 09/05/23 Unknown Rx mg-trimethoprim 160 mg tablet Allergy/AdvReac Type Severity Reaction Status Date / Time azithromycin (From Zithromax) Allergy Unknown rash Verified 09/05/23 17:59 Family History Father Heart disease Mother Heart disease Surgical History History of cardiac catheterization History of carpal tunnel release History of cataract extraction History of hernia repair History of knee surgery Hx of colonoscopy with polypectomy Total knee replacement status Social History household members: spouse current occupational status: retired Smoking Status: Never smoker alcohol intake: never substance use type: does not use what type of physical activity do you participate in: none ROS ROS ED Review of Systems ROS Unobtainable: other Constitutional Constitutional ED: Reports lethargy; Denies chills, fever(s), sweats or weight loss Eyes Eyes: Denies blurry vision, change in vision or diplopia ENT ENT ED: Denies rhinorrhea or sore throat Cardiovascular Cardiovascular: Denies chest pain, orthopnea or racing heartbeat Respiratory/Chest Respiratory/Chest: Denies cough, dyspnea, dyspnea on exertion, orthopnea or sputum Gastrointestinal Gastrointestinal: Denies abdominal pain, diarrhea, nausea or vomiting Genitourinary Genitourinary ED: Denies dysuria, hematuria or urinary frequency Musculoskeletal Musculoskeletal: Denies arthralgias, back pain, myalgias or neck pain Integumentary Reports rash and other Details: Redness and swelling to right foot ; Denies abscess or Abrasions Neurologic Neurologic: Denies headache(s) or weakness Psychiatric Psychiatric: Denies anxiety, depression or suicidal thoughts Endocrine Endocrinology: Denies polydipsia, polyphagia or polyuria Hematologic/Lymphatic Hematologic/Lymphatic: Denies easy bleeding, easy bruising or lymphadenopathy Allergic/Immunologic Allergic/Immunologic ED: Denies mouth swelling, tongue swelling or urticaria EXAM Physical Exam Const Vital Signs: 09/05/23 17:58 Temperature 96.9 F L Temperature Source Temporal Pulse Rate 76 Respiratory Rate 18 Blood Pressure 157/85 H Blood Pressure Mean 109 Pulse Ox 95 Oxygen Delivery Method Room Air Positive well nourished and well developed General Appearance ED: well developed and NAD HEENT Reports TM's clear and moist mucous membranes normocephalic and atraumatic; Negative for trauma or tenderness Tympanic Membrane ED: Yes TM's clear Eyes PERRL and EOMs intact bilaterally General Eye ED: Negative for pale conjunctiva or scleral icterus Neck no lymphadenopathy, supple and no JVD General: Negative for tenderness Chest Wall inspection of chest normal and palpation of chest normal Chest: Negative for tenderness Resp normal respiratory effort and clear to auscultation bilaterally Effort and Inspection: Negative for respiratory distress or pain with movement Auscultation: Negative for rhonchi, wheezes or diminished lung sounds Cardio regular rate, regular rhythm, S1 normal heart sound, S2 normal heart sound and no murmurs Peripheral Pulses: pulses 2+ throughout GI normal to inspection, nondistended, normoactive bowel sounds, soft to palpation, non-tender, non-distended and no masses Back/Spine no CVA tenderness and no thoracic nor lumbar tenderness Extremity Extremity Narrative: Right foot-patient has erythema and warmth to the dorsal lateral aspect of the right foot. No tenderness on exam. No abscesses noted. Neurovascularly intact distally. General Extremety ED: Negative for edema General Extremity: Negative for edema Neuro oriented x3, CN's II-XII intact bilaterally, no sensory deficits noted and gait normal Sensorium / Orientation: awake, alert, oriented to person, oriented to place and oriented to time Motor Exam: strength 5/5 throughout and strength abnormal Psych mental status grossly normal Skin no rashes or lesions noted and no wounds MDM MDM MDM Narrative Medical decision making narrative: Patient presents with erythema to dorsal lateral aspect of the right foot. Clinically consistent with cellulitis. Area of erythema outlined with marker. Will start on Keflex and Bactrim. Clinically he looks well. He is not having any systemic signs or symptoms. Advised to follow-up with primary care physician within next 3 to 5 days. Advised to return if worsening pain, redness, swelling, chills or fever or condition should worsen anyway. Discharge Plan Triage Chief Complaint: Cellulitis ED Provider: Laury Park Dx/Rx/DC Orders Clinical Impression: Cellulitis of foot, right Instructions: ED Cellulitis Prescriptions: New sulfamethoxazole-trimethoprim 800-160 mg tablet 1 tab PO BID Qty: 20 0RF cephalexin 500 mg capsule 500 mg PO Q6 Qty: 40 0RF No Action aspirin 81 mg capsule 81 mg PO DAILY multivitamin Tablet 1 tab PO DAILY cinnamon bark [Cinnamon] 500 mg capsule 1,000 mg PO DAILY fluticasone furoate-vilanterol [Breo Ellipta] 100-25 mcg/dose blister with device 1 inh inhalation Q24H Patient Comments: TAKE 1 PUFF BY MOUTH EVERY DAY omega-3 fatty acids 1,000 mg capsule 1,000 mg PO DAILY esomeprazole magnesium 40 mg capsule,delayed release(DR/EC) 40 mg PO DAILY montelukast 10 mg tablet 10 mg PO DAILY loratadine 10 mg tablet 10 mg PO DAILY (DME) Accu-Chek Rica Plus test strp Strip See Rx Instructions .Route Qty: 100 3RF Rx Instructions: BID and PRN losartan 25 mg tablet 25 mg PO DAILY Qty: 90 3RF metformin 1,000 mg tablet 500 mg PO BID Qty: 180 1RF carvedilol 12.5 mg tablet 12.5 mg PO BID Qty: 180 3RF Rx Instructions: must administer with a meal/food furosemide 20 mg tablet 20 mg PO MOTUWETHFR Qty: 90 1RF Primary Care Provider: Brandee Mejía Referrals: Brandee Mejía MD [Primary Care Provider] - 3-5 Days Print Language: Luxembourger Disposition Disposition: Home, Self Care
[2023-09-05 18:59] VITALS: BP 125/80; PULSE 78; RESP 16; TEMP 36.9; O2SAT 97
[2023-09-05] MEDS: Cephalexin 250 MG Capsule 500 MG PO (19:05)
[2023-09-05] MEDS: Smz/Tmp Ds Tablet 1 TABLET PO (19:06)
== END 2023-09-05 19:12 | disposition home or self-care (01) ==
LOC: ED 19:01
PROVIDERS: Emergency Provider Emergency Medicine; PCP Internal Medicine; Visit Provider Emergency Medicine
DX: E11.628 Type 2 diabetes mellitus with other skin complications (principal); J44.9 Chronic obstructive pulmonary disease, unspecified; L03.115 Cellulitis of right lower limb; I10 Essential (primary) hypertension; E78.00 Pure hypercholesterolemia, unspecified; Z79.82 Long term (current) use of aspirin; Z79.84 Long term (current) use of oral hypoglycemic drugs; Z79.899 Other long term (current) drug therapy
CPT/HCPCS: 99282

== ENCOUNTER → 2023-09-13 | Outpatient (CLI) | payer MEDICARE, OTHER, SELFPAY ==
--- NOTE | 2023-09-18 11:39 | STRESSREP ---
Stress Test Report Date: 09/13/2023 Procedure: Exercise tolerance test/imaging study Indications: Dyspnea on exertion, chest pain Consent: Per the patient Procedure: The patient exercised on a Jairo protocol for 3 minutes and 20 seconds achieving a peak heart rate of 134 bpm (89% predicted maximal heart rate) with a peak blood pressure 184/72 mmHg and a peak MET capacity of 5.4 METs. The baseline ECG demonstrated normal sinus rhythm, right bundle branch block. The peak exercise ECG demonstrated no significant ischemic changes. EKG during recovery revealed no significant ischemic changes [There were no cardiac dysrhythmias pretest, during exercise, or recovery]. The functional capacity was considered mildly decreased for age There was [no complaint of chest discomfort during exercise or recovery]. The examination was discontinued secondary to [dyspnea, fatigue]. Impression: 1. Technically adequate (percent predicted maximal heart rate greater than 85%) exercise tolerance test 2. Stress test is negative for exercise-induced EKG changes of ischemia 3. The test test is negative for exercise-induced chest pain 4. Functional capacity is mildly decreased for age 5. Nuclear images pending Myocardial perfusion imaging study: Technique: The patient was injected with 14.5 mCi of technetium 99m Cardiolite and subsequently rest SPECT Cardiolite nuclear imaging was obtained in the horizontal long, vertical long, and short axis views. The patient exercised on a Jairo protocol. Please see above for details. The patient was injected with 45 mCi of technetium 99m Cardiolite and subsequently stress SPECT Cardiolite nuclear imaging was obtained in the horizontal long, vertical long, and short axis views. A gated Cardiolite study at peak stress was obtained. Interpretation: Rest and stress SPECT Cardiolite nuclear imaging status post realignment, normalization, and attenuation correction, demonstrates no evidence of significant ischemia or infarction. The gated Cardiolite study demonstrates no significant regional wall motion abnormalities. The reported LVEF is 60%. Impression: 1. There is no evidence of significant ischemia or infarction. 2. The gated Cardiolite study reports an LVEF of 60%. This note was generated with [employer] software. It may contain incorrect words, spelling, and punctuation that were not noted in checking the note before signing.
== END | disposition home or self-care (01) ==
LOC: CVS 06:43
PROVIDERS: PCP Internal Medicine; Referring Provider Internal Medicine; Visit Provider Internal Medicine
DX: R07.89 Other chest pain (principal); E11.9 Type 2 diabetes mellitus without complications; R06.09 Other forms of dyspnea; I10 Essential (primary) hypertension; R53.83 Other fatigue
CPT/HCPCS: 78452; 93017; A9500; A4216

== ENCOUNTER 2023-10-10 09:10 | Inpatient (IN) | payer MEDICARE, OTHER, SELFPAY ==
[2023-10-10] VITALS (13 sets, daily range): BP systolic 95–172; BP diastolic 68–94; PULSE 40–92; RESP 17–31; TEMP 36.5–38.7; O2SAT 87–98; BMI 44.9; BMI 44.5
--- NOTE | 2023-10-10 09:29 | EKG12_ITS ---
Test Reason : WEAKNESS Blood Pressure : / mmHG Vent. Rate : 073 BPM Atrial Rate : 073 BPM P-R Int : 242 ms QRS Dur : 136 ms QT Int : 414 ms P-R-T Axes : 024 -41 004 degrees QTc Int : 456 ms Sinus rhythm with 1st degree A-V block with Premature atrial complexes Left axis deviation Right bundle branch block Abnormal ECG Confirmed by CHEYENNE VELASQUEZ, NATALEE ([id number]), assignment desk editor SOPHIE HADDAD ([id number]) on 10/12/2023 8:12:51 AM Referred By: Luis M Vásquez Confirmed By:NATALEE QUINN MD
--- NOTE | 2023-10-10 09:30 | EDS_ITS ---
HPI History of Present Illness Chief Complaint: Weakness Detail of Chief Complaint: Weakness, productive cough, dyspnea and dyspnea on exertion Informant: patient and spouse/S.O. Onset/Context/Timing Onset: Weeks (1.5 weeks ago) Context: Sudden Onset Timing: Continuous Quality: Dyspnea, dyspnea on exertion and productive cough Location: respiratory Current Severity: Mild Maximum Severity: Severe Worsened by: Walking Relieved by: nothing Associated Symptoms Associated Symptoms: productive cough, Narrative Narrative: Patient is a 68-year-old male. He has history of COPD, obstructive sleep apnea, diabetes who presents with shortness of breath that started 1.5 weeks ago with nasal congestion and cough. Cough is now productive of yellow-green sputum. He states approximately 2 weeks ago he and his shoveled a ton of limestone, 1 to 2 tons of mulch and 1+ ton of dirt with no respiratory symptoms. He states his nose is congested and causes him problems at night because he cannot use his BiPAP machine. He denies fever but does endorse chills. states she has had shaking chills. He denies headache, visual, ocular or auditory symptoms. He denies neck pain or neck stiffness. He denies chest discomfort. He denies history of VTE. He denies orthopnea or PND. He denies GI symptoms. He does endorse polyuria, nocturia and thirst. He has not checked his blood sugar recently. Prior similar symptoms: No Recent Illness/Hospitalization: No [facility] Medical History Non-smoker Chronic cough Hx of adenomatous colonic polyps Wears dentures Wears glasses Arthritis Kidney stones High cholesterol CPAP (continuous positive airway pressure) dependence Sleep apnea Asthma History of pain when walking History of edema Cardiology follow-up encounter Sleep apnea with use of continuous positive airway pressure (CPAP) Hypertension Diabetes COPD (chronic obstructive pulmonary disease) History of kidney stones Home Medications ?Medication ?Instructions ?Recorded ?Last Taken ?Type aspirin 81 mg capsule 81 mg PO DAILY 08/23/21 10/10/23 History multivitamin 1 tab PO DAILY 08/23/21 10/10/23 History blood sugar diagnostic (Accu-Chek #100 ea 08/10/22 Unknown Rx Rica Plus test strips) cinnamon bark 500 mg capsule 500 mg PO DAILY 01/04/23 10/10/23 History (Cinnamon) losartan 25 mg tablet 25 mg PO DAILY #90 tabs 01/09/23 10/10/23 Rx carvedilol 12.5 mg tablet 12.5 mg PO BID #180 tabs 02/07/23 10/10/23 Rx metformin 1,000 mg tablet 500 mg (1/2 x 1,000 mg) PO BID 02/07/23 10/10/23 Rx #180 tabs furosemide 20 mg tablet 20 mg PO MOTUWETHFR #90 tabs 07/21/23 10/10/23 Rx omega-3 fatty acids 1,000 mg 1,000 mg PO DAILY 08/23/23 10/10/23 History capsule fluticasone furoate 200 1 ea inhalation DAILY 10/10/23 10/10/23 History mcg-vilanterol 25 mcg/dose inhalation powder (Breo Ellipta) Allergy/AdvReac Type Severity Reaction Status Date / Time azithromycin (From Zithromax) Allergy Unknown rash Verified 10/10/23 09:11 Family History Father Heart disease Mother Heart disease Surgical History Total knee replacement status Hx of colonoscopy with polypectomy History of cardiac catheterization History of carpal tunnel release History of cataract extraction History of hernia repair History of knee surgery Social History household members: spouse current occupational status: retired Smoking Status: Never smoker alcohol intake: never substance use type: does not use what type of physical activity do you participate in: none ROS ROS ED Constitutional Constitutional ED: Reports chills and sweats; Denies fever(s) or subjective Eyes Eyes: Denies blurry vision, change in vision or diplopia ENT ENT ED: Reports rhinorrhea; Denies ear pain or sore throat Cardiovascular Cardiovascular: Denies chest pain, orthopnea, palpitations, paroxysmal nocturnal dyspnea or racing heartbeat Respiratory/Chest Respiratory/Chest: Reports cough, dyspnea, dyspnea on exertion and sputum; Denies orthopnea or paroxysmal nocturnal dyspnea Gastrointestinal Gastrointestinal: Denies abdominal pain, diarrhea, nausea or vomiting Genitourinary Genitourinary ED: Denies dysuria, hematuria or urinary frequency Musculoskeletal Musculoskeletal: Denies arthralgias or myalgias Integumentary Denies rash Neurologic Neurologic: Reports weakness; Denies headache(s) or paresthesias Endocrine Endocrinology: Denies cold intolerance or heat intolerance Hematologic/Lymphatic Hematologic/Lymphatic: Reports systems reviewed and no addt'l complaints, except as documented Allergic/Immunologic Allergic/Immunologic ED: Denies mouth swelling or tongue swelling EXAM Physical Exam Const Vital Signs: 10/10/23 09:11 10/10/23 09:13 10/10/23 10:13 Temperature 98.3 F 98 F 101.7 F H Temperature Source Temporal Temporal Oral Pulse Rate 75 74 87 Respiratory Rate 18 20 H 29 H Blood Pressure 150/70 H 150/68 H 145/81 H Blood Pressure Mean 96 95 102 Pulse Ox 98 97 92 Oxygen Delivery Method Room Air Room Air Room Air Oxygen Flow Rate (L/min) 10/10/23 10:34 10/10/23 10:45 10/10/23 11:00 Temperature 101.7 F H Temperature Source Oral Pulse Rate 90 Respiratory Rate 28 H 30 H Blood Pressure 155/94 H Blood Pressure Mean 114 Pulse Ox 87 91 93 Oxygen Delivery Method Room Air Nasal Cannula Nasal Cannula Oxygen Flow Rate (L/min) 2 2 Positive well nourished and well developed Constitutional Narrative: BMI is elevated. He is tachypneic. He is breathing faster than 18 times a minute that is documented by triage. General Appearance ED: well developed; Negative for pallor HEENT Reports dry mucous membranes HEENT Narrative: Head is atraumatic normocephalic. Ears normal. Nares patent with clear to whitish colored drainage. Mucosa slightly edematous. There is slight erythema. Posterior pharynx reveals a midline uvula. There is no erythema or exudate. Mouth ED: Yes dry mucous membranes Mouth: dry mucous membranes Eyes PERRL and EOMs intact bilaterally General Eye ED: Negative for pale conjunctiva or scleral icterus Neck no lymphadenopathy, supple and no JVD Chest Wall inspection of chest normal and palpation of chest normal Resp No normal respiratory effort and No clear to auscultation bilaterally Auscultation: rhonchi left upper Cardio regular rate, regular rhythm, S1 normal heart sound, S2 normal heart sound and no murmurs GI normal to inspection, nondistended, normoactive bowel sounds, non-tender, non- distended and no masses; Negative for hepatosplenomegaly Auscultation: normoactive bowel sounds Palpation: soft Back/Spine no CVA tenderness Extremity General Extremety ED: Negative for tenderness Neuro oriented x3 and CN's II-XII intact bilaterally Sensorium / Orientation: alert Psych mental status grossly normal Skin no rashes or lesions noted, no wounds and skin turgor normal General Skin Exam: Negative for jaundice or pallor MDM MDM MDM Narrative Medical decision making narrative: Patient presents with respiratory-like symptoms that started 1.5 weeks ago. Will obtain chest x-ray to assess for pneumonia. This may be exacerbation of COPD. Since patient endorses polyuria, polydipsia and nocturia will obtain BMP to assess glucoses anion gap. Also to assess potassium since he is on furosemide. EKG in the event this is an atypical presentation for cardiac ischemia. Symptoms are consistent with respiratory infection. History & Record Review Additional record(s) reviewed:: Prior outpatient record (Screening for malignant neoplasm of the colon by Dr. Velazquez May 2023. Office visit August 2022 for COPD.), Prior ED visit (August 2023 for cellulitis and august 2023 for chronic cough. Patient has not lisinopril.) and Prior labs Lab Data Labs: Laboratory Results - last 24 hr 10/10/23 10/10/23 09:05 09:55 WBC 8.5 RBC 4.11 L Hgb 12.7 L Hct 38.4 L MCV 93.4 MCH 30.9 MCHC 33.1 RDW Std Deviation 45.8 H RDW Coeff of Rafa 13.4 Plt Count 235 MPV 9.0 Immature Gran % (Auto) 0.600 Neut % (Auto) 74.3 H Lymph % (Auto) 10.0 L [place] % (Auto) 14.1 H Eos % (Auto) 0.6 Baso % (Auto) 0.4 Absolute Neuts (auto) 6.4 Absolute Lymphs (auto) 0.85 Nucleated RBC % 0 Sodium 134 L Potassium 4.1 Chloride 99 Carbon Dioxide 26.0 Anion Gap 9 BUN 14 Creatinine 1.30 Est GFR (MDRD) Af Amer 70 Est GFR (MDRD) Non-Af 58 L BUN/Creatinine Ratio 10.8 Glucose 229 H Lactic Acid 2.4 H* Calcium 8.9 Radiography Chest X-Ray - ED: 2 View and Read by ED Physician (Compared to prior x-ray obtained August of this year there is an infiltrate on the left which is new. There is borderline cardiomegaly. Osseous structures unremarkable. This independently reviewed and interpreted by me at 1025.) Diagnostic Testing: Clinical Impression(s) from Imaging Studies Chest X-Ray 10/10/23 10:15 IMPRESSION: Left lower lobe consolidation with blunting of the left costophrenic angle. Electronically Signed: Leo Barraza MD at 10:24 EDT , EKG Initial EKG: Attestation: I personally reviewed and interpreted this EKG as follows: Interpretation: Sinus Rhythm (Sinus rhythm first-degree AV block. Rate of 73. TN interval is 242 ms. QRS duration is prolonged at 136 and consistent with a left bundle branch block. QT interval is 414 ms. [place] to the left. There is no evidence of acute ischemia.) Treatment and Re-Evaluation :: Patient was informed of his laboratory results at 1030. Patient is breathing 31 times a minute. Saturation at rest is 91%. Suspect patient is going to require admission. Will obtain blood cultures prior to treatment with antibiotics. Curb 65 score is 2 which is moderate risk group with a 6.8 % 30-day mortality rate. Port score is 100 points risk class IV with an 8.2 to 9% mortality rate. Hospitalization is recommended based on risk. Since patient is hypoxic now his port score is 110. Still considered risk class IV. Patient is present 2 L of oxygen and saturating 92%. He was 87% on room air at rest. He was not ambulated. He also has an elevated temperature of 101 ?F. Discharge Plan Dx/Rx/DC Orders Clinical Impression: Left lower lobe pneumonia, Hypertension, Sleep apnea with use of continuous positive airway pressure (CPAP), Acute hypoxemic respiratory failure, Acidosis, lactic, Type 2 diabetes mellitus, Adult BMI 40.0-44.9 kg/sq m Disposition Disposition: [facility]
--- NOTE | 2023-10-10 10:15 | RAD_ITS ---
STUDY: X-RAY CHEST REASON FOR EXAM: Male, 68 years old. Dyspnea, CALIX, productive cough TECHNIQUE: PA and lateral views of the chest. COMPARISON: Comparison is made with prior study dated August 29, 2023. FINDINGS: EKG electrodes are seen. Left lower lobe consolidation. Minimal increased markings at the right lung base. Blunting of the left costophrenic angle. Normal size heart. Normal mediastinum and devin. Normal visualized pulmonary arteries. There is atherosclerotic calcification of the aortic arch with tortuosity. There are diffuse degenerative changes of the visualized thoracic spine. Normal visualized ribs, clavicles, and shoulders. There is no demonstrated abnormality of the visualized soft tissue structures of the upper abdomen. RAD/Chest PA and Lateral IMPRESSION: Left lower lobe consolidation with blunting of the left costophrenic angle. Electronically Signed: Leo Barraza MD at 10:24 EDT ,
[2023-10-10 10:29] LABS: Absolute Lymphocyte Count 0.85 X10^3/uL (0.83-4.51); Absolute Neutrophil Count 6.4 X10^3/uL (2.0-7.7); Basophil# 0.03 X10^3/uL; Basophil% 0.4 % (0-1); Eosinophil# 0.05 X10^3/uL; Eosinophils% 0.6 % (0-5); Hematocrit 38.4 % (40-54); Hemoglobin 12.7 g/dL (13.0-16.5); Lymphocyte # 0.85 X10^3/ul (0.83-4.51); Mean Corp Hgb Conc 33.1 g/dL (32-36); Mean Corpuscular Hgb 30.9 pg (27.0-32.0); Mean Corpuscular Volume 93.4 fL (80-94); Monocyte% 14.1 % (0-10); NRBC Flagged by Analyzer 0 % (0-5); Neutrophil # 6.36 X10^3/uL (2.7-7.7); Neutrophil % 74.3 % (47-70); Platelet Count 235 K/mm3 (150-450); RBC Distribution Width CV 13.4 % (11.6-14.6); RBC Distribution Width SD 45.8 fl (35.1-43.9); Red Blood Count 4.11 M/mm3 (4.6-6.2); White Blood Count 8.5 K/mm3 (4.4-11.0)
[2023-10-10 10:43] LABS: Anion Gap 9 (5-15); BUN 14 mg/dL (7-18); BUN/Creat Ratio 10.8 RATIO (10-20); Calcium,Total 8.9 mg/dL (8.5-10.1); Chloride 99 mmol/L (98-107); EST Glomerular Filtration Rate 58 mL/min (>60); Est Glom Filt Rate - Afr Amer 70 mL/min (>60); Glucose 229 mg/dL (74-106); Potassium 4.1 mmol/L (3.5-5.1); Sodium Level 134 mmol/L (136-145)
[2023-10-10 11:02] LABS: Lactic Acid 2.4 mmol/L (0.4-1.9)
[2023-10-10] MEDS: levoFLOXacin IV 750 MG in Empty Viaflex Q24 100 MG IV (11:15)
--- NOTE | 2023-10-10 11:25 | ED.RN ---
levaquin given, med will not scan
--- NOTE | 2023-10-10 11:32 | HP.PCM.HOS_ITS ---
HPI - General General Date of Admission: 10/10/23 Date of Service: 10/10/23 Chief Complaint: Cough/shortness of breath/generalized weakness HPI Narrative NATALEE GALICIA, is a 68 M who presented to the emergency department at [facility] on 10/10/2023 with a chief complaint of weakness, productive cough, and dyspnea. Patient reported that he started with some shortness of breath about a week and a half ago with some concomitant nasal congestion and cough. His cough is now productive of yellow to green sputum. They reported about 2 weeks before presentation he was shoveling a lot of limestone and mulch and had no respiratory symptoms with this. He complains of concomitant nasal congestion that has not caused him problems wearing his CPAP at night. He denies any fever at home but has had chills, general malaise, and generalized weakness. His reports that he has had shaking chills at home. Patient reported that he really started feeling poorly on Monday or Monday. They tried to call Dr. Mejía's office to be assessed but he has been out of the office so they elected to come to the emergency department for further evaluation as he continues to feel poorly and has been getting worse. Vital signs on presentation showed a temperature of 98.3 with a Tmax of 101.7, heart rate was 75, blood pressure has been elevated with maximum range of 172/93 with respiratory rate anywhere from 20-31. Oxygen saturation initially was 98% on room air but desatted in the emergency department to 87% on room air and was placed on 2 L nasal cannula with improvement to his oxygen saturations to 95% on room air. CBC did not show a leukocytosis however he does have a significant left shift with a 74.3% neutrophilia. He also has a monocytosis at 14.1%. His chemistry showed mild hyponatremia with a sodium of 135 his BUN and creatinine were at his baseline. He did have some hyperglycemia with a blood sugar of 229. Lactic acid was slightly elevated at 2.4. EKG showed normal sinus rhythm with rate in the 70s, first-degree AV block with a ID interval of 242, chronic left bundle branch block, and no ST-T wave changes consistent with ischemia. Chest x-ray showed a left lower lobe infiltrate. In the emergency department blood cultures were obtained and he was given Levaquin. [facility] Medical History Non-smoker Chronic cough Hx of adenomatous colonic polyps Wears dentures Wears glasses Arthritis Kidney stones High cholesterol CPAP (continuous positive airway pressure) dependence Sleep apnea Asthma History of pain when walking History of edema Cardiology follow-up encounter Sleep apnea with use of continuous positive airway pressure (CPAP) Hypertension Diabetes COPD (chronic obstructive pulmonary disease) History of kidney stones Home Medications ?Medication ?Instructions ?Recorded ?Last Taken ?Type aspirin 81 mg capsule 81 mg PO DAILY 08/23/21 10/10/23 History multivitamin 1 tab PO DAILY 08/23/21 10/10/23 History blood sugar diagnostic (Accu-Chek #100 ea 08/10/22 Unknown Rx Rica Plus test strips) cinnamon bark 500 mg capsule 500 mg PO DAILY 01/04/23 10/10/23 History (Cinnamon) losartan 25 mg tablet 25 mg PO DAILY #90 tabs 01/09/23 10/10/23 Rx carvedilol 12.5 mg tablet 12.5 mg PO BID #180 tabs 02/07/23 10/10/23 Rx metformin 1,000 mg tablet 500 mg (1/2 x 1,000 mg) PO BID 02/07/23 10/10/23 Rx #180 tabs furosemide 20 mg tablet 20 mg PO MOTUWETHFR #90 tabs 07/21/23 10/10/23 Rx omega-3 fatty acids 1,000 mg 1,000 mg PO DAILY 08/23/23 10/10/23 History capsule fluticasone furoate 200 1 ea inhalation DAILY 10/10/23 10/10/23 History mcg-vilanterol 25 mcg/dose inhalation powder (Breo Ellipta) Allergy/AdvReac Type Severity Reaction Status Date / Time azithromycin (From Zithromax) Allergy Unknown rash Verified 10/10/23 09:11 Family History Father Heart disease Mother Heart disease Surgical History Total knee replacement status Hx of colonoscopy with polypectomy History of cardiac catheterization History of carpal tunnel release History of cataract extraction History of hernia repair History of knee surgery Social History household members: spouse current occupational status: retired Smoking Status: Never smoker alcohol intake: never substance use type: does not use what type of physical activity do you participate in: none ROS Constitutional Constitutional: Reports chills, fatigue, malaise and weakness; Denies anorexia, change in weight, fever(s), night sweats or other Eyes Eyes: Denies blurry vision, change in eye color, change in vision, discharge from eye(s), double vision, erythema, eye pain, loss of vision or other ENT HEENT: Reports nasal congestion, nasal discharge, post nasal drip and sinus pressure; Denies abnormal hearing, dysphagia, ear pain, epistaxis, headache(s), hearing loss, sore throat or other Cardiovascular Cardiovascular: Reports dyspnea on exertion; Denies chest pain, claudication, edema, lightheadedness, orthopnea, palpitations, paroxysmal nocturnal dyspnea, rapid heart rate, syncope or other Respiratory/Chest Respiratory/Chest: Reports cough, dyspnea, excessive phlegm production, productive cough, shortness of breath at rest and shortness of breath with exertion; Denies hemoptysis, wheezing or other Gastrointestinal Gastrointestinal: Denies abdominal pain, coffee ground emesis, constipation, diarrhea, dyspepsia, hematemesis, hematochezia, loose stools, melena, nausea, vomiting or other Genitourinary Genitourinary: Denies burning urination, difficulty urinating, dysuria, hematuria, nocturia, urinary frequency, urinary hesitancy, urinary incontinence, urinary urgency or other Musculoskeletal Musculoskeletal: Reports myalgias; Denies arthralgias, back pain, joint pain, joint stiffness, joint swelling, neck pain or other Neurologic Neurologic: Denies abnormal gait, abnormal speech, confusion, disequilibrium, dizziness, focal weakness, headache(s), numbness, paresthesias, seizure-like activity, seizures, syncope, tingling, tremor(s) or other Psychiatric Psychiatric: Denies anxiety, depression, homicidal ideation, suicidal ideation or other Endocrine Endocrinology: Denies change in body appearance, cold intolerance, excessive sweating, heat intolerance, polydipsia, polyuria or other Hematologic/Lymphatic Hematologic/Lymphatic: Denies anemia, easy bleeding, easy bruising, lymphadenopathy or other Allergic/Immunologic Allergic/Immunologic: Denies rhinitis, hives, eczemia, asthma or other Vital Signs Vital Signs Vital Signs: 10/10/23 09:11 10/10/23 09:13 10/10/23 10:13 Temperature 98.3 F 98 F 101.7 F H Temperature Source Temporal Temporal Oral Pulse Rate 75 74 87 Respiratory Rate 18 20 H 29 H Blood Pressure 150/70 H 150/68 H 145/81 H Blood Pressure Mean 96 95 102 Pulse Ox 98 97 92 Oxygen Delivery Method Room Air Room Air Room Air Oxygen Flow Rate (L/min) 10/10/23 10:34 10/10/23 10:45 10/10/23 11:00 Temperature 101.7 F H Temperature Source Oral Pulse Rate 90 Respiratory Rate 28 H 30 H Blood Pressure 155/94 H Blood Pressure Mean 114 Pulse Ox 87 91 93 Oxygen Delivery Method Room Air Nasal Cannula Nasal Cannula Oxygen Flow Rate (L/min) 2 2 10/10/23 11:27 Temperature 101.7 F H Temperature Source Pulse Rate 40 L Respiratory Rate 31 H Blood Pressure 172/93 H Blood Pressure Mean 119 Pulse Ox 95 Oxygen Delivery Method Oxygen Flow Rate (L/min) Weight Weight: 129.983 kg Body Mass Index (BMI) 44.9 Physical Exam Const alert, oriented x3, no apparent distress and well nourished; Negative for average body habitus or healthy appearing Constitutional Narrative: Older, morbidly obese, white male, sitting up in bed in the emergency department, at bedside, patient appears to be ill but not toxic General Appearance: cooperative HEENT normocephalic, head/scalp atraumatic, hearing grossly normal bilaterally and moist oral mucous membranes HEENT Narrative: Mallampati 3-4, dentures in place, no thrush Eyes PERRL, EOMs intact bilaterally and conjunctivae normal Eyes Narrative: No scleral icterus Neck no lymphadenopathy and supple Neck Narrative: trachea midline, no thyroid enlargement, neck is short and thick Resp No normal respiratory effort, no retractions and no use of accessory muscles Resp Narrative: Rhonchi in right base, significant tachypnea with respiratory rates in the 30s and conversational dyspnea Auscultation: crackles, rhonchi and wheezes Cardio regular rate, regular rhythm, S1 normal heart sound, S2 normal heart sound, no murmurs, no rub, no gallops and no clicks GI normal to inspection, nondistended, normoactive bowel sounds, soft to palpation and non-tender GI Narrative: Large protuberant abdomen Extremity no clubbing, cyanosis or edema Extremity Narrative: Pedal pulses are 2+, radial pulses are 2+ Skin no rashes or lesions noted, no wounds, skin turgor normal, no jaundice, no petechiae and no mottling Neuro oriented x3, moves all extremities and no focal motor deficits Speech: speech normal Psych affect normal Psych Narrative: Eye contact is good and patient interacts appropriately Results Lab / Micro Data 10/10/23 09:55 10/10/23 09:05 Labs: Laboratory Results - last 24 hr 10/10/23 09:05: Sodium 134 L, Potassium 4.1, Chloride 99, Carbon Dioxide 26.0, Anion Gap 9, BUN 14, Creatinine 1.30, Est GFR (MDRD) Af Amer 70, Est GFR (MDRD) Non-Af 58 L, BUN/Creatinine Ratio 10.8, Glucose 229 H, Lactic Acid 2.4 H*, Calcium 8.9 10/10/23 09:55: WBC 8.5, RBC 4.11 L, Hgb 12.7 L, Hct 38.4 L, MCV 93.4, MCH 30.9, MCHC 33.1, RDW Std Deviation 45.8 H, RDW Coeff of Rafa 13.4, Plt Count 235, MPV 9.0, Immature Gran % (Auto) 0.600, Neut % (Auto) 74.3 H, Lymph % (Auto) 10.0 L, [place] % (Auto) 14.1 H, Eos % (Auto) 0.6, Baso % (Auto) 0.4, Absolute Neuts (auto) 6.4, Absolute Lymphs (auto) 0.85, Nucleated RBC % 0 Micro: Microbiology 10/10/23 09:35 Mucosa - Nose SARS-CoV-2, Influenza & RSV (PCR) - Final Imaging Radiology Impression Chest X-Ray 10/10/23 10:15 IMPRESSION: Left lower lobe consolidation with blunting of the left costophrenic angle. Electronically Signed: Leo Barraza MD at 10:24 EDT , Assessment & Plan Assessment/Plan (1) Acidosis, lactic: (2) Acute hypoxemic respiratory failure: (3) Left lower lobe pneumonia: (4) Generalized weakness: (5) Fever: (6) Tachypnea: PLAN: Plan Acute hypoxic respiratory failure secondary to left lower lobe pneumonia -Patient with elevated blood pressure, tachypnea, hypoxia -Blood cultures pending -Check sputum culture if able to produce -I-S -Acapella -Check strep pneumo Legionella antigens -Continue Levaquin 750 mg daily -Scheduled DuoNebs and as needed albuterol -Mucinex 1200 twice daily next-as needed antitussives -Currently requiring 2 L supplemental oxygen to maintain sats greater than 88% -Not oxygen dependent at baseline -Will need ambulatory pulse ox prior to discharge Fever -Secondary to the above -Will monitor -continue antibiotics Lactic acidosis -Suspect related to hypoxia--> patient not meeting criteria for sepsis -Cycle per protocol Generalized weakness -Secondary to the above -PT/OT consultation -Case management/social work consultation for assistance with discharge planning -Currently suspect discharge to be home with no assistance COPD -Related to exposures with work -Follows as an outpatient with Dr. Pace -Hold home inhalers while hospitalized -Treatment as above -Not oxygen dependent at baseline -Patient is a never smoker DM-2 -Hold home metformin -SSI -Accu-Cheks as ordered -Cardiac/carb controlled diet Hypertension -Continue Coreg -Continue losartan -Continue home Lasix Hyperlipidemia -Patient is not on any statins -Hold cinnamon bark and omega fatty acids UMM -Continue home CPAP Morbid obesity -BMI 44.9 -Recommend weight loss -Complicates treatment, prognosis, outcomes DVT prophylaxis -Lovenox subcu 40 twice daily with BMI of 44 CODE STATUS -Full code as verified on admission Charges/Coding Visit Charges Inpatient E&M: 67530 Init Hosp L3
--- NOTE | 2023-10-10 11:43 | NURSING ---
MEDS SURG LANA LLL PNEUMONIA, RESP FAILURE WITH HYPOXIA, LACTIC ACIDOSIS
[2023-10-10 14:14] LABS: Reflex Lactate? Y
[2023-10-10 14:56] LABS: Lactic Acid 1.7 mmol/L (0.4-1.9)
[2023-10-10] MEDS: Ipratropium/Albuterol Sulfate 3 ML AMPUL.NEB INHALATION ×2 (16:08→20:52)
[2023-10-10 17:10] LABS: Bedside Glucose 184 mg/dL (74-106)
[2023-10-10] MEDS: Insulin Lispro 100 UNIT/ML INSULN.PEN SC (17:30)
[2023-10-10] MEDS: BENZOCAINE/MENTHOL 1 LOZENGE MUCOUS MEM (17:36)
[2023-10-10] MEDS: Benzonatate 100 MG Capsule 200 MG PO (17:36)
[2023-10-10] MEDS: Enoxaparin 40 MG/0.4 ML Syringe SC (21:12)
[2023-10-10] MEDS: Acetaminophen 325 MG Tablet 650 MG PO (21:12)
[2023-10-10] MEDS: guaiFENesin 1,200 MG Tablet 1200 MG PO (21:12)
[2023-10-10] MEDS: Carvedilol 12.5 MG Tablet PO (21:12)
[2023-10-11] VITALS (9 sets, daily range): BP systolic 114–147; BP diastolic 48–83; PULSE 67–93; RESP 17–20; TEMP 36.4–37.3; O2SAT 94–96
[2023-10-11 01:12] LABS: Bedside Glucose 133 mg/dL (74-106)
[2023-10-11] MEDS: Insulin Lispro 100 UNIT/ML INSULN.PEN SC ×3 (06:21→16:49)
[2023-10-11 06:35] LABS: Absolute Lymphocyte Count 0.95 X10^3/uL (0.83-4.51); Absolute Neutrophil Count 5.4 X10^3/uL (2.0-7.7); Basophil# 0.01 X10^3/uL; Basophil% 0.1 % (0-1); Eosinophil# 0.13 X10^3/uL; Eosinophils% 1.7 % (0-5); Hematocrit 35.7 % (40-54); Hemoglobin 11.9 g/dL (13.0-16.5); Lymphocyte # 0.95 X10^3/ul (0.83-4.51); Lymphocyte % 12.6 % (19-41); Mean Corp Hgb Conc 33.3 g/dL (32-36); Mean Corpuscular Hgb 31.3 pg (27.0-32.0); Mean Corpuscular Volume 93.9 fL (80-94); Mean Platelet Vol. 8.7 fl (6.2-12.0); Monocyte# 1.01 X10^3/uL; Monocyte% 13.4 % (0-10); NRBC Flagged by Analyzer 0 % (0-5); Neutrophil # 5.38 X10^3/uL (2.7-7.7); Neutrophil % 71.8 % (47-70); Platelet Count 224 K/mm3 (150-450); RBC Distribution Width CV 13.6 % (11.6-14.6); RBC Distribution Width SD 46.5 fl (35.1-43.9); White Blood Count 7.5 K/mm3 (4.4-11.0)
[2023-10-11 06:41] LABS: Bedside Glucose 158 mg/dL (74-106)
[2023-10-11 07:00] LABS: ALB/GLOB Ratio 0.6 RATIO (0.9-2.4); AST(SGOT) 27 U/L (15-37); Alanine Aminotransfer ALT/SGPT 28 U/L (16-61); Albumin, Serum 2.6 g/dL (3.2-5.0); Alkaline Phosphatase 45 U/L (45-117); Anion Gap 8 (5-15); BUN 18 mg/dL (7-18); BUN/Creat Ratio 15.3 RATIO (10-20); Calcium,Total 8.9 mg/dL (8.5-10.1); Chloride 100 mmol/L (98-107); Creatinine, Serum 1.18 mg/dL (0.70-1.30); EST Glomerular Filtration Rate 65 mL/min (>60); Est Glom Filt Rate - Afr Amer 79 mL/min (>60); Estimated Creatinine Clearance 75.19 ml/min; Globulin 4.6 g/dL (2.2-4.2); Glucose 189 mg/dL (74-106); Magnesium 1.7 mg/dL (1.6-2.6); Phosphorus 2.8 mg/dL (2.5-4.9); Protein, Total 7.2 g/dL (6.4-8.2); Sodium Level 134 mmol/L (136-145)
[2023-10-11] MEDS: Ipratropium/Albuterol Sulfate 3 ML AMPUL.NEB INHALATION ×4 (07:49→19:12)
[2023-10-11] MEDS: guaiFENesin 1,200 MG Tablet 1200 MG PO ×2 (09:08→21:09)
[2023-10-11] MEDS: Multivitamins,Therapeutic Tablet 1 TABLET PO (09:09)
[2023-10-11] MEDS: Losartan Potassium 25 MG Tablet PO (09:09)
[2023-10-11] MEDS: Aspirin 81 MG TAB.CHEW PO (09:09)
[2023-10-11] MEDS: Furosemide 20 MG Tablet PO (09:09)
[2023-10-11] MEDS: Carvedilol 12.5 MG Tablet PO ×2 (09:09→21:09)
[2023-10-11] MEDS: Enoxaparin 40 MG/0.4 ML Syringe SC ×2 (09:09→21:09)
[2023-10-11] MEDS: levoFLOXacin IV 750 MG in Empty Viaflex Q24 100 MG IV (09:47)
[2023-10-11] MEDS: 0.9% Saline Lock 10 ML Syringe IV (09:47)
[2023-10-11] MEDS: 0.9% Normal Saline (250mL Bag) 250 ML 15 ML IV (11:18)
[2023-10-11 12:00] LABS: Bedside Glucose 172 mg/dL (74-106)
--- NOTE | 2023-10-11 13:15 | PCM.PN.HOSP ---
Reason for Visit Reason for Visit: Cough/shortness of breath/generalized weakness Subjective Subjective Patient states that he is about 50% better today. He still is coughing but able to produce and get quite a bit out which makes him feel better. He still has some dyspnea on exertion but feels that this is overall better as well. He feels less weak. Still requiring oxygen at 2 L nasal cannula however oxygen saturations are between 95 and 96%. He is anxious to go home and I told him would play a day by day and see how he is feeling tomorrow. Objective Data Objective Data Vital Signs: Vital Signs Temp Pulse Resp BP Pulse Ox O2 Del Method O2 Flow Rate 98.2 F 91 18 114/48 L 96 Nasal Cannula 2 10/11/23 09:04 10/11/23 09:04 10/11/23 09:04 10/11/23 09:04 10/11/23 09:04 10/11/23 09:14 10/11/23 12:13 Oxygen Flow Rate (L/min) 2 Oxygen Delivery Method Nasal Cannula Weight: 129 kg Body Mass Index (BMI) 44.5 Intake & Output: Intake and Output for Last 24 Hours 10/09/23 10/10/23 10/11/23 23:59 23:59 23:59 Intake Total 670 / 670 165.25 / 165.25 Balance 670 / 670 165.25 / 165.25 Lab / Micro Data 10/11/23 06:12 10/11/23 06:12 Labs: Laboratory Results - last 24 hr 10/10/23 14:22: Lactic Acid 1.7 10/10/23 16:49: POC Glucose 184 H 10/10/23 21:16: POC Glucose 133 H 10/11/23 06:12: WBC 7.5, RBC 3.80 L, Hgb 11.9 L, Hct 35.7 L, MCV 93.9, MCH 31.3, MCHC 33.3, RDW Std Deviation 46.5 H, RDW Coeff of Rafa 13.6, Plt Count 224, MPV 8.7, Immature Gran % (Auto) 0.400, Neut % (Auto) 71.8 H, Lymph % (Auto) 12.6 L, [place] % (Auto) 13.4 H, Eos % (Auto) 1.7, Baso % (Auto) 0.1, Absolute Neuts (auto) 5.4, Absolute Lymphs (auto) 0.95, Nucleated RBC % 0, Sodium 134 L, Potassium 4.0, Chloride 100, Carbon Dioxide 26.0, Anion Gap 8, BUN 18, Creatinine 1.18, Estim Creat Clear Calc 75.19, Est GFR (MDRD) Af Amer 79, Est GFR (MDRD) Non-Af 65, BUN/Creatinine Ratio 15.3, Glucose 189 H, Calcium 8.9, Phosphorus 2.8, Magnesium 1.7, Total Bilirubin 0.90, AST 27, ALT 28, Alkaline Phosphatase 45, Total Protein 7.2, Albumin 2.6 L, Globulin 4.6 H, Albumin/Globulin Ratio 0.6 L 10/11/23 06:20: POC Glucose 158 H 10/11/23 11:40: POC Glucose 172 H Micro: Microbiology 10/10/23 15:35 Urine, Clean Catch Legionella Antigen - Final 10/10/23 15:35 Urine, Clean Catch Streptococcus pneumoniae Antigen (M - Final 10/10/23 09:35 Mucosa - Nose SARS-CoV-2, Influenza & RSV (PCR) - Final Physical Exam Const alert, oriented x3, no apparent distress and well nourished; Negative for average body habitus or healthy appearing Constitutional Narrative: Older, morbidly obese, white male, sitting up in bed watching television, at bedside, does not appear toxic and appears as if he is feeling better today than yesterday General Appearance: cooperative HEENT normocephalic, head/scalp atraumatic, hearing grossly normal bilaterally and moist oral mucous membranes HEENT Narrative: Mallampati is 3, no thrush Resp normal respiratory effort, no retractions and no use of accessory muscles Resp Narrative: Improve respiratory rate with resolution of tachypnea, still coarse in the right base with intermittent rhonchi and few end expiratory wheezes that clear with cough Auscultation: rhonchi and wheezes; Negative for crackles Cardio regular rate, regular rhythm, S1 normal heart sound, S2 normal heart sound, no murmurs, no rub, no gallops and no clicks GI normal to inspection, nondistended, normoactive bowel sounds, soft to palpation and non-tender GI Narrative: Large protuberant abdomen Extremity no clubbing, cyanosis or edema Extremity Narrative: Pedal pulses are 2+, radial pulses are 2+ Neuro oriented x3, moves all extremities and no focal motor deficits Speech: speech normal Psych affect normal Psych Narrative: Eye contact is good and patient interacts appropriately Assessment & Plan Assessment/Plan (1) Acidosis, lactic: (2) Acute hypoxemic respiratory failure: (3) Left lower lobe pneumonia: (4) Generalized weakness: (5) Fever: (6) Tachypnea: PLAN: Plan Acute hypoxic respiratory failure secondary to left lower lobe pneumonia -Patient with elevated blood pressure, tachypnea, hypoxia -Remains on 2 L nasal cannula with oxygen saturations between 95 to 96% -Asked nursing to wean as able -Will check ambulatory pulse ox tomorrow -Blood cultures pending -Sputum culture is pending -I-S -Acapella -Strep pneumo and Legionella antigens are negative -Continue Levaquin 750 mg daily day 2 of 7 -Continue scheduled DuoNebs and as needed albuterol -Continue Mucinex 1200 twice daily next-as needed antitussives Fever -Tmax since admission has been 99.3 yesterday early evening -Fever curve seems to be improving Lactic acidosis -Resolved Generalized weakness -Secondary to the above -Improved today -PT/OT following -Case management/social work consultation for assistance with discharge planning -Currently suspect discharge to be home with no assistance COPD -Related to exposures with work -Follows as an outpatient with Dr. Pace -Hold home inhalers while hospitalized -Treatment as above -Not oxygen dependent at baseline -Patient is a never smoker -Will recommend that patient have earlier outpatient follow-up after discharge DM-2 -Hold home metformin -SSI -Accu-Cheks as ordered -Cardiac/carb controlled diet Hypertension -Continue Coreg -Continue losartan -Continue home Lasix Hyperlipidemia -Patient is not on any statins -Hold cinnamon bark and omega fatty acids UMM -Continue home CPAP Morbid obesity -BMI 44.5 -Recommend weight loss -Complicates treatment, prognosis, outcomes DVT prophylaxis -Continue Lovenox SQ twice daily CODE STATUS -Full code as verified on admission Charges/Coding Visit Charges Inpatient E&M: 58575 Subs Hosp L2
--- NOTE | 2023-10-11 14:10 | CASEMGMT ---
RN CM Face to Face with patient for initial transition planning/care coordination assessment. RN CM introduced self and role at [facility]. Patient lying in bed, alert and oriented, friend at bedside. Patient willing to participate in assessment and is able to answer all questions appropriately. Care providers, pharmacy, and demographics verified. PCP: [facility] Specialists: Katelynn, water hydrant installer; Preferred Pharmacy: [facility] Insurance: [employer] Prescription Benefit: yes Living Will/HPOA: yes, Erica Yusuf LNOK: Living Arrangements: Patient lives with in raised ranch with 2-13 steps and railing. Patient states he is independent at home. Transportation: self, DME/HHC: Patient has shower chair, raised toilet, cane, crutches, grab bars, walker, cpap, nebulizer and pulse ox at home. Will monitor for home oxygen at discharge, prefers [employer] Patient wishes to discharge home, denies need for home health at this time. Patient states he has no further needs or concerns at this time. CM to follow for discharge planning needs that may arise. Disposition Plan: Patient to discharge with family support and follow-up plans in place. Candida GUTHRIE, RN, CM
[2023-10-11 17:08] LABS: Bedside Glucose 164 mg/dL (74-106)
[2023-10-11 21:32] LABS: Bedside Glucose 184 mg/dL (74-106)
[2023-10-12 03:35] VITALS: BP 122/70; PULSE 90; RESP 18; TEMP 35.9; O2SAT 95
[2023-10-12 05:31] LABS: Absolute Lymphocyte Count 1.15 X10^3/uL (0.83-4.51); Absolute Neutrophil Count 6.3 X10^3/uL (2.0-7.7); Basophil# 0.03 X10^3/uL; Basophil% 0.3 % (0-1); Eosinophil# 0.15 X10^3/uL; Eosinophils% 1.7 % (0-5); Hematocrit 33.8 % (40-54); Hemoglobin 11.5 g/dL (13.0-16.5); Lymphocyte # 1.15 X10^3/ul (0.83-4.51); Lymphocyte % 13.2 % (19-41); Mean Corpuscular Hgb 31.7 pg (27.0-32.0); Mean Corpuscular Volume 93.1 fL (80-94); Mean Platelet Vol. 8.4 fl (6.2-12.0); Monocyte# 1.01 X10^3/uL; Monocyte% 11.6 % (0-10); NRBC Flagged by Analyzer 0 % (0-5); Neutrophil # 6.31 X10^3/uL (2.7-7.7); Neutrophil % 72.9 % (47-70); Platelet Count 242 K/mm3 (150-450); RBC Distribution Width CV 13.7 % (11.6-14.6); RBC Distribution Width SD 46.5 fl (35.1-43.9); Red Blood Count 3.63 M/mm3 (4.6-6.2); White Blood Count 8.7 K/mm3 (4.4-11.0)
[2023-10-12 05:51] LABS: Anion Gap 7 (5-15); BUN 20 mg/dL (7-18); BUN/Creat Ratio 17.1 RATIO (10-20); Calcium,Total 8.6 mg/dL (8.5-10.1); Chloride 102 mmol/L (98-107); Creatinine, Serum 1.17 mg/dL (0.70-1.30); EST Glomerular Filtration Rate 66 mL/min (>60); Est Glom Filt Rate - Afr Amer 79 mL/min (>60); Estimated Creatinine Clearance 75.83 ml/min; Glucose 194 mg/dL (74-106); Potassium 3.9 mmol/L (3.5-5.1); Sodium Level 137 mmol/L (136-145)
[2023-10-12] MEDS: Insulin Lispro 100 UNIT/ML INSULN.PEN SC ×2 (06:40→11:24)
[2023-10-12 06:45] VITALS: PULSE 80; RESP 18; O2SAT 93
[2023-10-12] MEDS: Ipratropium/Albuterol Sulfate 3 ML AMPUL.NEB INHALATION ×2 (06:49→10:36)
[2023-10-12 07:04] LABS: Bedside Glucose 169 mg/dL (74-106)
[2023-10-12 09:24] VITALS: O2SAT 92; O2SAT 94
[2023-10-12 09:25] VITALS: BP 136/67; PULSE 92; RESP 18; TEMP 36.7; O2SAT 97
[2023-10-12] MEDS: Carvedilol 12.5 MG Tablet PO (09:29)
[2023-10-12] MEDS: Aspirin 81 MG TAB.CHEW PO (09:29)
[2023-10-12] MEDS: Enoxaparin 40 MG/0.4 ML Syringe SC (09:29)
[2023-10-12] MEDS: Losartan Potassium 25 MG Tablet PO (09:29)
[2023-10-12] MEDS: Furosemide 20 MG Tablet PO (09:29)
[2023-10-12] MEDS: Multivitamins,Therapeutic Tablet 1 TABLET PO (09:29)
[2023-10-12] MEDS: guaiFENesin 1,200 MG Tablet 1200 MG PO (09:30)
[2023-10-12] MEDS: levoFLOXacin IV 750 MG in Empty Viaflex Q24 100 MG IV (09:31)
[2023-10-12 10:36] VITALS: PULSE 73; RESP 16
--- NOTE | 2023-10-12 11:07 | DS.PCM_ITS ---
Providers Date of Admission: 10/10/23 Date of Discharge: 10/12/23 Primary Care Physician: Dr. Brandee Mejía MD Reason For Visit: ACUTE HYPOXIA 2/2 LLL PNA Diagnosis Discharge Diagnosis (1) Acidosis, lactic: Status: Acute Code(s): E87.20 - Acidosis, unspecified (2) Acute hypoxemic respiratory failure: Status: Acute Code(s): J96.01 - Acute respiratory failure with hypoxia (3) Left lower lobe pneumonia: Status: Acute Code(s): J18.9 - Pneumonia, unspecified organism (4) Generalized weakness: Status: Acute Code(s): R53.1 - Weakness (5) Fever: Status: Acute Code(s): R50.9 - Fever, unspecified (6) Tachypnea: Status: Acute Code(s): R06.82 - Tachypnea, not elsewhere classified Medications at Discharge Home Medications aspirin 81 mg capsule 81 mg PO DAILY preventative 08/23/21 multivitamin 1 tab PO DAILY suppliment 08/23/21 blood sugar diagnostic (Accu-Chek Rica Plus test strips) #100 ea 08/10/22 cinnamon bark 500 mg capsule (Cinnamon) 500 mg PO DAILY suppliment 01/04/23 losartan 25 mg tablet 25 mg PO DAILY heart #90 tabs 01/09/23 carvedilol 12.5 mg tablet 12.5 mg PO BID heart #180 tabs 02/07/23 metformin 1,000 mg tablet 500 mg (1/2 x 1,000 mg) PO BID diabetes #180 tabs 02/07/23 furosemide 20 mg tablet 20 mg PO MOTUWETHFR diuretic #90 tabs 07/21/23 omega-3 fatty acids 1,000 mg capsule 1,000 mg PO DAILY choleseterol 08/23/23 fluticasone furoate 200 mcg-vilanterol 25 mcg/dose inhalation powder (Breo Ellipta) 1 ea inhalation DAILY sob 10/10/23 benzonatate 100 mg capsule 200 mg (2 x 100 mg) PO TID PRN PRN COUGH/CONGESTION #15 caps 10/12/23 guaifenesin 1,200 mg tablet, extended release 12 hr (Mucus Relief ER) 1,200 mg PO BID #0 tabs 10/12/23 levofloxacin 750 mg tablet 750 mg PO DAILY #5 tabs 10/12/23 Hospital Course Operations None Procedures EKG and - (Chest x-ray) Summary of Care Provided Minutes Spent on Discharge: 42 Hospital Course: NATALEE GALICIA, is a 68 M who presented to the emergency department at [facility] on 10/10/2023 with a chief complaint of weakness, productive cough, and dyspnea. Patient reported that he started with some shortness of breath about a week and a half ago with some concomitant nasal congestion and cough. His cough is now productive of yellow to green sputum. They reported about 2 weeks before presentation he was shoveling a lot of limestone and mulch and had no respiratory symptoms with this. He complains of concomitant nasal congestion that has not caused him problems wearing his CPAP at night. He denies any fever at home but has had chills, general malaise, and generalized weakness. His reports that he has had shaking chills at home. Patient reported that he really started feeling poorly on Monday or Monday. They tried to call Dr. Mejía's office to be assessed but he has been out of the office so they elected to come to the emergency department for further evaluation as he continues to feel poorly and has been getting worse. Vital signs on presentation showed a temperature of 98.3 with a Tmax of 101.7, heart rate was 75, blood pressure has been elevated with maximum range of 172/93 with respiratory rate anywhere from 20-31. Oxygen saturation initially was 98% on room air but desatted in the emergency department to 87% on room air and was placed on 2 L nasal cannula with improvement to his oxygen saturations to 95% on room air. CBC did not show a leukocytosis however he does have a significant left shift with a 74.3% neutrophilia. He also has a monocytosis at 14.1%. His chemistry showed mild hyponatremia with a sodium of 135 his BUN and creatinine were at his baseline. He did have some hyperglycemia with a blood sugar of 229. Lactic acid was slightly elevated at 2.4. EKG showed normal sinus rhythm with rate in the 70s, first-degree AV block with a MO interval of 242, chronic left bundle branch block, and no ST-T wave changes consistent with ischemia. Chest x-ray showed a left lower lobe infiltrate. In the emergency department blood cultures were obtained and he was given Levaquin. He was admitted to the medical floor and maintained on Levaquin, and given Mucinex, aerosols, incentive spirometry and Acapella. With time his hypoxia slowly resolved and at the time of discharge she was on room air both at rest and with exertion. Cultures are still pending at the time of discharge however clinically he was much improved. His Gram stain from sputum culture showed gram-positive diplococci so I suspect this may be strep pneumo despite his strep pneumo and Legionella antigens being unremarkable. His urine culture was negative. I will follow his cultures finalizing out to ensure the antibiotics cover however with his clinical improvement I do suspect his pneumonia is susceptible to Levaquin and we will plan to discharge him on 5 more days of Levaquin for coverage. That we will complete a total of a 7-day course. I have advised him to stay of the heat and humidity and to continue as needed nebulizers at home as well as continue his incentive spirometry and Acapella. He is able to be discharged home in stable condition on 10/12/2023. Discharge diagnoses: Acute hypoxic respiratory failure secondary to left lower tkezsfzyp-ehlo-nmrivyho diplococci Fever-resolved Lactic acidosis-resolved Generalized weakness-resolved COPD DM-2 Hypertension Hyperlipidemia UMM Morbid obesity Physical Exam Narrative Patient states he overall feels much better than on presentation is anxious to go home if possible. Ambulatory pulse ox was performed and patient is stable on room air at this time. Const alert, oriented x3, no apparent distress, no limitations and well nourished; Negative for average body habitus or healthy appearing Constitutional Narrative: Older, morbidly obese, white male, sitting up in bed watching television, at bedside, appears well, nontoxic General Appearance: cooperative, comfortable, well kempt and well developed Orientation / Consciousness: awake, oriented to person, oriented to place and oriented to time Exam Limitations: no limitations Nutritional Appearance: morbidly obese HEENT normocephalic, head/scalp atraumatic, hearing grossly normal bilaterally and moist oral mucous membranes HEENT Narrative: Mallampati is 3, no thrush Eyes PERRL, EOMs intact bilaterally and conjunctivae normal Eyes Narrative: No scleral icterus Neck no lymphadenopathy and supple Neck Narrative: trachea midline, no thyroid enlargement, neck is short and thick Resp normal respiratory effort, no retractions, no use of accessory muscles and clear to auscultation bilaterally Resp Narrative: Adventitious sounds have resolved Auscultation: Negative for crackles, rhonchi or wheezes Cardio regular rate, regular rhythm, S1 normal heart sound, S2 normal heart sound, no murmurs, no rub, no gallops and no clicks GI normal to inspection, nondistended, normoactive bowel sounds, soft to palpation and non-tender GI Narrative: Large protuberant abdomen Extremity no clubbing, cyanosis or edema Extremity Narrative: Pedal pulses are 2+, radial pulses are 2+ Skin no rashes or lesions noted, no wounds, skin turgor normal, no jaundice, no petechiae and no mottling Neuro oriented x3, CN's II-XII intact bilaterally, moves all extremities and no focal motor deficits Speech: speech normal Psych affect normal Psych Narrative: Eye contact is good and patient interacts appropriately Weight / BMI Weight Weight: 129 kg Body Mass Index (BMI) 44.5 ABG / Lab / Microbiology Data 10/12/23 05:21 10/12/23 05:21 Laboratory: Laboratory Results - last 24 hr 10/11/23 11:40: POC Glucose 172 H 10/11/23 16:48: POC Glucose 164 H 10/11/23 21:08: POC Glucose 184 H 10/12/23 05:21: WBC 8.7, RBC 3.63 L, Hgb 11.5 L, Hct 33.8 L, MCV 93.1, MCH 31.7, MCHC 34.0, RDW Std Deviation 46.5 H, RDW Coeff of Rafa 13.7, Plt Count 242, MPV 8.4, Immature Gran % (Auto) 0.300, Neut % (Auto) 72.9 H, Lymph % (Auto) 13.2 L, [place] % (Auto) 11.6 H, Eos % (Auto) 1.7, Baso % (Auto) 0.3, Absolute Neuts (auto) 6.3, Absolute Lymphs (auto) 1.15, Nucleated RBC % 0, Sodium 137, Potassium 3.9, Chloride 102, Carbon Dioxide 28.0, Anion Gap 7, BUN 20 H, Creatinine 1.17, Estim Creat Clear Calc 75.83, Est GFR (MDRD) Af Amer 79, Est GFR (MDRD) Non-Af 66, BUN/Creatinine Ratio 17.1, Glucose 194 H, Calcium 8.6 06/20/24 06:38: POC Glucose 169 H Microbiology: Microbiology 10/10/23 15:35 Urine, Clean Catch Urine Culture - Final Culture exhibits no growth. 10/10/23 15:35 Urine, Clean Catch Legionella Antigen - Final 10/10/23 15:35 Urine, Clean Catch Streptococcus pneumoniae Antigen (M - Final 10/11/23 11:39 Sputum, Expectorated/Coughed Gram Stain - Final 10/10/23 09:35 Mucosa - Nose SARS-CoV-2, Influenza & RSV (PCR) - Final D/C Instructions Discharge Diet: Low fat / Low cholesterol and 1800 Calorie Control Diet Discharge Activity: Return to Normal Activity (Stay out of the heat and humidity especially during the middle of the day) Meaningful Use Info Meaningful Use Meaningful Use Diagnoses (Choose all that apply): None applicable Ischemic Stroke Statin Dosing Therapy Reference: STATIN DOSE THERAPY REFERENCE: * Patients > 75 years receive moderate or high dose statin therapy. * Patients 75 years or YOUNGER should receive HIGH intensity statin dose unless contraindicated. You will be required to document reason for non-treatment if statin daily dose does not meet guidelines. HIGH DOSE STATIN THERAPY DAILY Atorvastatin > than or = to 40 mg Rosuvastatin > than or = to 20 mg Amlodipine + Atorvastatin > than or = to 2.5/40 mg Ezetimibe + Simvastatin 10/80 mg Simvastatin 80mg Discharge Plan Admission Admit Date/Time: 10/10/23 11:23 Primary Reason for Your Visit: Cough/shortness of breath/generalized weakness Attending Provider: Kate Carpenter Primary Care Provider: Brandee Mejía Instructions Additional Instructions / Restrictions: 1. Please continue to use the incentive spirometer and Acapella for the next 5 days or longer if you feel that it is helpful 2. Use your nebulizer as needed and would recommend using it 3 times daily for the next 3 to 5 days [address] Please [address] Pace's office and schedule follow-up appointment as noted below Discharge Orders/Prescriptions Prescriptions: New benzonatate 100 mg Capsule 200 mg PO TID PRN PRN (Reason: COUGH/CONGESTION) Qty: 15 0RF guaifenesin [Mucus Relief ER] 1,200 mg Tablet Extended Release 12hr 1,200 mg PO BID Qty: 0 0RF Rx Instructions: buy over the counter and take for another 3-4 days levofloxacin 750 mg tablet 750 mg PO DAILY Qty: 5 0RF Continued aspirin 81 mg capsule 81 mg PO DAILY multivitamin Tablet 1 tab PO DAILY cinnamon bark [Cinnamon] 500 mg capsule 500 mg PO DAILY omega-3 fatty acids 1,000 mg capsule 1,000 mg PO DAILY fluticasone furoate-vilanterol [Breo Ellipta] 200-25 mcg/dose blister with device 1 ea inhalation DAILY (DME) Accu-Chek Rica Plus test strp Strip See Rx Instructions .Route Qty: 100 3RF Rx Instructions: BID and PRN losartan 25 mg tablet 25 mg PO DAILY Qty: 90 3RF metformin 1,000 mg tablet 500 mg PO BID Qty: 180 1RF carvedilol 12.5 mg tablet 12.5 mg PO BID Qty: 180 3RF Rx Instructions: must administer with a meal/food furosemide 20 mg tablet 20 mg PO MOTUWETHFR Qty: 90 1RF Referrals / Follow Up: Brandee Mejía MD [Primary Care Provider] - Within 2 Weeks Zachery Pace MD [Med Staff - Active Staff] - Within 1 Month Disposition Disposition (needs filled in before D/C Order can be placed): Home, Self Care Charges/Coding Visit Charges Inpatient E&M: 86216 Disch Hosp >30min
[2023-10-12 11:32] VITALS: BP 136/67; PULSE 92; RESP 18; TEMP 36.7; O2SAT 97
--- NOTE | 2023-10-12 11:39 | CASEMGMT ---
Patient has order for discharge. Patient does not qualify for home oxygen. RN CM in to discuss needs at discharge. Patient denies needs or help at discharge. Patient had no further questions or concerns.
[2023-10-12 11:47] LABS: Bedside Glucose 239 mg/dL (74-106)
--- NOTE | 2023-10-12 11:47 | PHA.DC.MC.R ---
Pharmacy [facility] has performed discharge medication reconciliation and counseling for this patient. The patient's discharge medication list was reviewed for discrepancies and discrepancies were resolved. The patient was counseled on the following discharge medications and changes in medications for homegoing were reviewed. 1. LEVAQUIN 2. MUCINEX 3. TESSALON The Reason for Use, instructions for use, and potential side effects were reviewed for all new medications. The patient's questions regarding all of their medications were answered. The patient was able to verbally demonstrate an understanding of their discharge medications. The patient was counselled by Edinson Gayle Candidate Medications at Discharge Home Medications aspirin 81 mg capsule 81 mg PO DAILY preventative 08/23/21 multivitamin 1 tab PO DAILY suppliment 08/23/21 blood sugar diagnostic (Accu-Chek Rica Plus test strips) #100 ea 08/10/22 cinnamon bark 500 mg capsule (Cinnamon) 500 mg PO DAILY suppliment 01/04/23 losartan 25 mg tablet 25 mg PO DAILY heart #90 tabs 01/09/23 carvedilol 12.5 mg tablet 12.5 mg PO BID heart #180 tabs 02/07/23 metformin 1,000 mg tablet 500 mg (1/2 x 1,000 mg) PO BID diabetes #180 tabs 02/07/23 furosemide 20 mg tablet 20 mg PO MOTUWETHFR diuretic #90 tabs 07/21/23 omega-3 fatty acids 1,000 mg capsule 1,000 mg PO DAILY choleseterol 08/23/23 fluticasone furoate 200 mcg-vilanterol 25 mcg/dose inhalation powder (Breo Ellipta) 1 ea inhalation DAILY sob 10/10/23 benzonatate 100 mg capsule 200 mg (2 x 100 mg) PO TID PRN PRN COUGH/CONGESTION #15 caps 10/12/23 guaifenesin 1,200 mg tablet, extended release 12 hr (Mucus Relief ER) 1,200 mg PO BID #0 tabs 10/12/23 levofloxacin 750 mg tablet 750 mg PO DAILY #5 tabs 10/12/23
== END 2023-10-12 13:50 | disposition home or self-care (01) | DRG 193 ==
LOC: ED 11:32 → PCU 12:04
PROVIDERS: Admitting Provider Internal Medicine; Emergency Provider Emergency Medicine; PCP Internal Medicine; Referring Provider Emergency Medicine; Visit Provider Internal Medicine
DX: J13 Pneumonia due to Streptococcus pneumoniae (principal); J96.01 Acute respiratory failure with hypoxia; E87.20 Acidosis, unspecified; J44.0 Chronic obstructive pulmonary disease with (acute) lower respiratory infection; Z68.41 Body mass index [BMI] 40.0-44.9, adult; E11.65 Type 2 diabetes mellitus with hyperglycemia; E66.01 Morbid (severe) obesity due to excess calories; I10 Essential (primary) hypertension; E78.5 Hyperlipidemia, unspecified; G47.33 Obstructive sleep apnea (adult) (pediatric); I44.7 Left bundle-branch block, unspecified; Z79.82 Long term (current) use of aspirin; R53.1 Weakness; Z79.51 Long term (current) use of inhaled steroids; Z79.01 Long term (current) use of anticoagulants
CPT/HCPCS: 36415; 71046; 80048; 80053; 82962; 83605; 83735; 84100; 85025; 87040; 87070; 87077; 87086; 87186; 87205; 87449; 87631; 93005; 94640; 94668; 97161; 97802; 99252; 99285; J7050; A4216; G0463

== ENCOUNTER → 2023-11-16 | Outpatient (CLI) | payer MEDICARE, OTHER, SELFPAY | END | disposition home or self-care (01) | PROVIDERS: PCP Internal Medicine; Referring Provider Internal Medicine Pulmonary Disease; Visit Provider Internal Medicine Pulmonary Disease | DX: J45.909 Unspecified asthma, uncomplicated (principal) | CPT/HCPCS: 87070; 87077; 87186; 87205 ==

== ENCOUNTER → 2023-12-08 | Outpatient (CLI) | payer MEDICARE, OTHER, SELFPAY ==
[2023-12-08 07:55] LABS: AST(SGOT) 15 U/L (15-37); Alanine Aminotransfer ALT/SGPT 24 U/L (16-61); Albumin, Serum 3.4 g/dL (3.2-5.0); Alkaline Phosphatase 50 U/L (45-117); Bilirubin, Direct 0.17 mg/dL (0.00-0.30); Cholesterol 210 mg/dL (200); Globulin 3.5 g/dL (2.2-4.2); High Density Lipoprotein 62 mg/dL; Protein, Total 6.9 g/dL (6.4-8.2); Triglycerides 156 mg/dL; Very Low Density Lipoprotein 31 mg/dL (5-40)
== END | disposition home or self-care (01) ==
LOC: LAB 07:12
PROVIDERS: PCP Internal Medicine; Referring Provider Internal Medicine Cardiovascular Disease; Visit Provider Internal Medicine Cardiovascular Disease
DX: E11.9 Type 2 diabetes mellitus without complications (principal)
CPT/HCPCS: 36415; 80061; 80076

== ENCOUNTER → 2024-05-10 | Outpatient (CLI) | payer MEDICARE, OTHER, SELFPAY ==
[2024-05-10 12:05] LABS: Hematocrit 42.3 % (40-54); Hemoglobin 14.1 g/dL (13.0-16.5); Mean Corp Hgb Conc 33.3 g/dL (32-36); Mean Corpuscular Volume 96.1 fL (80-94); Mean Platelet Vol. 9.6 fl (6.2-12.0); Platelet Count 249 K/mm3 (150-450); RBC Distribution Width CV 13.1 % (11.6-14.6); RBC Distribution Width SD 46.2 fl (35.1-43.9); White Blood Count 7.5 K/mm3 (4.4-11.0)
[2024-05-10 12:47] LABS: Ferritin 332 ng/mL (26-388); Iron Binding Capacity,Total 332 ug/dL (250-450)
== END | disposition home or self-care (01) ==
LOC: LAB 10:31
PROVIDERS: PCP Internal Medicine; Referring Provider Internal Medicine Pulmonary Disease; Visit Provider Internal Medicine Pulmonary Disease
DX: J45.40 Moderate persistent asthma, uncomplicated (principal)

== ENCOUNTER 2024-06-27 15:00 | Emergency (ER) | payer MEDICARE, OTHER, SELFPAY ==
[2024-06-27 15:01] VITALS: BP 139/71; PULSE 79; RESP 16; TEMP 35.8; O2SAT 96; BMI 44.9
--- NOTE | 2024-06-27 15:19 | EX.ED.DYSGE1 ---
HPI History of Present Illness Chief Complaint: Cough Narrative Narrative: Patient is a 68-year-old male past medical history of type 2 diabetes, hypertension, COPD, UMM who presents to the emergency department chief complaint of cough and groin rash. According to the patient he has had a cough for a very long time and notes that his physician has been treating him with steroids recently and noted that this was a taper but states that he is not on any antibiotics currently. He states that yesterday he started with a rash in his groin region and his states that she put zinc ointment on this. They called the primary care physician's office and they advised him to come here to be evaluated. [facility] Medical History Type 2 diabetes mellitus Hypertension Adult BMI 40.0-44.9 kg/sq m Non-smoker Chronic cough Hx of adenomatous colonic polyps Wears dentures Wears glasses Arthritis Kidney stones High cholesterol CPAP (continuous positive airway pressure) dependence Sleep apnea Asthma History of pain when walking History of edema Cardiology follow-up encounter Sleep apnea with use of continuous positive airway pressure (CPAP) Diabetes COPD (chronic obstructive pulmonary disease) History of kidney stones Home Medications ?Medication ?Instructions ?Recorded ?Last Taken ?Type aspirin 81 mg capsule 81 mg PO DAILY preventative 08/23/21 10/10/23 History multivitamin 1 tab PO DAILY suppliment 08/23/21 10/10/23 History blood sugar diagnostic (Accu-Chek #100 ea 08/10/22 Unknown Rx Rica Plus test strips) cinnamon bark 500 mg capsule 500 mg PO DAILY suppliment 01/04/23 10/10/23 History (Cinnamon) furosemide 20 mg tablet 20 mg PO MOTUWETHFR diuretic #90 07/21/23 10/10/23 Rx tabs omega-3 fatty acids 1,000 mg 1,000 mg PO DAILY choleseterol 08/23/23 10/10/23 History capsule fluticasone furoate 200 1 ea inhalation DAILY sob 10/10/23 10/10/23 History mcg-vilanterol 25 mcg/dose inhalation powder (Breo Ellipta) losartan 25 mg tablet 25 mg PO DAILY heart #90 tabs 10/17/23 Unknown Rx metformin 1,000 mg tablet 500 mg (1/2 x 1,000 mg) PO BID 11/13/23 Unknown Rx diabetes #180 tabs carvedilol 12.5 mg tablet 12.5 mg PO BID heart #180 tabs 12/11/23 Unknown Rx nystatin 100,000 unit/gram topical 1 applic topical TID #30 grams 06/27/24 Unknown Rx powder Allergy/AdvReac Type Severity Reaction Status Date / Time azithromycin (From Zithromax) Allergy Unknown rash Verified 06/27/24 15:01 levofloxacin AdvReac Intermediate tendinitis Verified 06/27/24 15:01 Family History Father Heart disease Mother Heart disease Surgical History Total knee replacement status Hx of colonoscopy with polypectomy History of cardiac catheterization History of carpal tunnel release History of cataract extraction History of hernia repair History of knee surgery Social History household members: spouse current occupational status: retired Smoking Status: Never smoker alcohol intake: never substance use type: does not use what type of physical activity do you participate in: none ROS ROS ED ROS Narrative Constitutional: Denies any fevers, chills, headaches, lightness, dizziness Eyes: Denies changes double vision blurry vision Cardiovascular: Denies chest pain Respiratory: Complains of cough denies shortness of breath or wheezing Abdomen: Denies abdominal pain nausea vomit diarrhea : Denies any painful urination, hematuria, polyuria Neurological: Denies any numbness, weakness, tingling Musculoskeletal: Denies back pain Skin: Denies rashes or lesions EXAM Physical Exam Narrative Exam Narrative: General: Patient lying in bed rest comfortably did not appear to be in acute distress Head: Atraumatic, normocephalic Eyes: PERRL bilaterally, EOMI bilaterally, no conjunctival injection noted Neck: Soft, supple, trachea midline Cardiovascular: Regular rate and rhythm no murmurs gallops rubs noted Respiratory: Clear to auscultation bilaterally no rales rhonchi or wheezes noted Abdomen: Soft, nondistended, nontender to palpation Genitourinary: Patient does have rash noted bilaterally in his groin region. No sloughing of skin noted, no concern for Doni's gangrene, patient has no testicular pain Extremities: +5/5 strength noted in the bilateral upper and lower extremities, radial pulses +2/4 in the bilateral extremities, no pedal edema exam Neurological: Patient following commands knew that he was at [facility] year is 2024 Skin: Warm, dry, see exam Const Vital Signs: 06/27/24 15:01 06/27/24 15:24 06/27/24 16:12 Temperature 96.5 F L Temperature Source Temporal Pulse Rate 79 Respiratory Rate 16 Respiratory Effort Normal Non-Labored Blood Pressure 139/71 H Blood Pressure Mean 93 Pulse Ox 96 Oxygen Delivery Method Room Air Room Air Room Air 06/27/24 17:00 Temperature Temperature Source Pulse Rate 91 Respiratory Rate 19 H Respiratory Effort Blood Pressure 148/99 H Blood Pressure Mean 115 Pulse Ox 92 Oxygen Delivery Method Room Air MDM MDM MDM Narrative Medical decision making narrative: Patient is a 68-year-old male who presented to the emergency department the chief complaint of cough and groin rash. On the differential diagnose includes Melamin to pneumonia, upper respiratory infection secondary to viral etiology, fungal infection in his groin. Once workup is obtained reviewed he will be reevaluated. Patient be given IV fluids. Patient CBC was reviewed showed no evidence leukocytosis white blood count normal 9.3, hemoglobin 13.4, plate count was noted be 230. Patient sodium was 132, potassium normal at 4, anion gap was 12, creatinine was 1.18. Patient glucose was 325 he was given subcutaneous insulin here in the emergency department and when this was rechecked it was noted be 215. Patient's beta-hydroxybutyrate was 0.1. Patient's chest x-ray reviewed by myself and by radiology showed no acute cardiopulmonary processes. Patient's EKG reviewed and showed sinus rhythm with a rate of 70 bpm with evidence of right bundle branch block. This was compared to EKG from 10/10/2023 which showed right bundle branch block at that point time as well as first-degree AV block with PACs which is largely unchanged. Patient was ambulated here in the emergency department had no evidence hypoxia nor tachycardia and felt well. Patient be given nystatin powder for his groin rash. He was advised to keep a close eye on this and check his sugars 2-3 times a day to ensure that they are not rising on him. He was encouraged to return with worsening symptoms or other concerns otherwise he is to follow-up with his primary care physician outpatient setting. He is agreeable this plan as well as significant other at bedside all question concerns answered he is discharged home in stable condition. Lab Data Labs: Laboratory Results - last 24 hr 06/27/24 06/27/24 15:56 18:29 WBC 9.3 RBC 4.19 L Hgb 13.4 Hct 38.4 L MCV 91.6 MCH 32.0 MCHC 34.9 RDW Std Deviation 42.2 RDW Coeff of Rafa 12.6 Plt Count 230 MPV 9.1 Immature Gran % (Auto) 0.400 Neut % (Auto) 74.8 H Lymph % (Auto) 12.3 L [place] % (Auto) 11.1 H Eos % (Auto) 1.0 Baso % (Auto) 0.4 Absolute Neuts (auto) 7.0 Absolute Lymphs (auto) 1.15 Nucleated RBC % 0 Sodium 132 L Potassium 4.0 Chloride 95 L Carbon Dioxide 24.7 Anion Gap 12 BUN 17 Creatinine 1.18 Estim Creat Clear Calc 75.58 Est GFR (MDRD) Non-Af 66 BUN/Creatinine Ratio 14.3 Glucose 325 H Calcium 9.1 b-Hydroxybutyric mmol/L 0.1 POC Glucose 215 H Radiography Diagnostic Testing: Clinical Impression(s) from Imaging Studies Chest X-Ray 06/27/24 16:15 IMPRESSION: Mild cardiomegaly without focal consolidation. Reading Location: [facility] [place] Discharge Plan Triage Chief Complaint: Cough Other Complaint: Wound ED Provider: Donald Iraheta Dx/Rx/DC Orders Clinical Impression: Fungal infection of the groin, Cough Prescriptions: New nystatin 100,000 unit/gram powder 1 applic topical TID Qty: 30 0RF No Action aspirin 81 mg capsule 81 mg PO DAILY multivitamin Tablet 1 tab PO DAILY cinnamon bark [Cinnamon] 500 mg capsule 500 mg PO DAILY omega-3 fatty acids 1,000 mg capsule 1,000 mg PO DAILY fluticasone furoate-vilanterol [Breo Ellipta] 200-25 mcg/dose blister with device 1 ea inhalation DAILY (DME) Accu-Chek Rica Plus test strp Strip See Rx Instructions .Route Qty: 100 3RF Rx Instructions: BID and PRN furosemide 20 mg tablet 20 mg PO MOTUWETHFR Qty: 90 1RF losartan 25 mg tablet 25 mg PO DAILY Qty: 90 3RF metformin 1,000 mg tablet 500 mg PO BID Qty: 180 1RF carvedilol 12.5 mg tablet 12.5 mg PO BID Qty: 180 3RF Rx Instructions: must administer with a meal/food Primary Care Provider: Brandee Mejía Referrals: Brandee Mejía MD [Primary Care Provider] - Activity Restrictions/Additional Instructions: Check your glucose a few times throughout the day. Use the nystatin powder as prescribed. Return with worsening symptoms or other concerns. Your chest x-ray did not show any evidence of pneumonia. Print Language: Azerbaijani Disposition Disposition: Home, Self Care
[2024-06-27] MEDS: 0.9% Normal Saline (1000mL) 1,000 ML 999 ML IV (15:57)
[2024-06-27 16:12] VITALS: O2SAT 94
[2024-06-27 16:13] LABS: Absolute Lymphocyte Count 1.15 X10^3/uL (0.83-4.51); Basophil# 0.04 X10^3/uL; Basophil% 0.4 % (0-1); Eosinophil# 0.09 X10^3/uL; Hematocrit 38.4 % (40-54); Hemoglobin 13.4 g/dL (13.0-16.5); Lymphocyte # 1.15 X10^3/ul (0.83-4.51); Lymphocyte % 12.3 % (19-41); Mean Corp Hgb Conc 34.9 g/dL (32-36); Mean Corpuscular Volume 91.6 fL (80-94); Mean Platelet Vol. 9.1 fl (6.2-12.0); Monocyte# 1.03 X10^3/uL; Monocyte% 11.1 % (0-10); NRBC Flagged by Analyzer 0 % (0-5); Neutrophil # 6.97 X10^3/uL (2.7-7.7); Neutrophil % 74.8 % (47-70); Platelet Count 230 K/mm3 (150-450); RBC Distribution Width CV 12.6 % (11.6-14.6); RBC Distribution Width SD 42.2 fl (35.1-43.9); Red Blood Count 4.19 M/mm3 (4.6-6.2); White Blood Count 9.3 K/mm3 (4.4-11.0)
--- NOTE | 2024-06-27 16:15 | RAD_ITS ---
PROCEDURE: Chest radiograph REASON FOR EXAM: Chest pain TECHNIQUE: Frontal view of the chest. COMPARISON: 10/10/2023 FINDINGS: Mild cardiomegaly. No focal consolidation, sizeable pleural effusion or pneumothorax. RAD/Chest 1 View (Portable) IMPRESSION: Mild cardiomegaly without focal consolidation. Reading Location: [facility]
[2024-06-27 16:33] LABS: Anion Gap 12 (5-15); BUN 17 mg/dL (4-19); BUN/Creat Ratio 14.3 RATIO (10-20); Calcium,Total 9.1 mg/dL (7.6-11.0); Carbon Dioxide 24.7 mmol/L (21.0-32.0); Chloride 95 mmol/L (98-108); Creatinine, Serum 1.18 mg/dL (0.70-1.20); EST Glomerular Filtration Rate 66 (>60); Estimated Creatinine Clearance 75.58 ml/min (50-250); Glucose 325 mg/dL (70-99); Sodium Level 132 mmol/L (133-145)
[2024-06-27 17:00] VITALS: BP 148/99; PULSE 91; RESP 19; O2SAT 92
[2024-06-27] MEDS: Insulin Lispro 100 UNIT/ML INSULN.PEN 10 UNIT SC (17:19)
[2024-06-27 17:36] VITALS: O2SAT 93
[2024-06-27 18:09] LABS: BETA-HYDROXYBUTYRATE 0.1 mmol/L (0.0-0.3)
[2024-06-27 18:48] LABS: Bedside Glucose 215 mg/dL (74-106)
[2024-06-27 19:21] VITALS: BP 138/76; PULSE 66; RESP 25; TEMP 36.3; O2SAT 93
== END 2024-06-27 19:22 | disposition home or self-care (01) ==
PROVIDERS: Emergency Provider Emergency Medicine; PCP Internal Medicine; Referring Provider Emergency Medicine; Visit Provider Emergency Medicine
DX: R05.3 Chronic cough (principal); J44.9 Chronic obstructive pulmonary disease, unspecified; E11.9 Type 2 diabetes mellitus without complications; B35.6 Tinea cruris; I10 Essential (primary) hypertension; E78.00 Pure hypercholesterolemia, unspecified; Z79.82 Long term (current) use of aspirin; Z79.84 Long term (current) use of oral hypoglycemic drugs; Z79.899 Other long term (current) drug therapy
CPT/HCPCS: 71045; 80048; 82010; 82962; 85025; 93005; 96360; 99284; A4216

== ENCOUNTER 2024-06-30 20:23 | Emergency (ER) | payer MEDICARE, OTHER, SELFPAY ==
[2024-06-30 20:25] VITALS: BP 148/50; PULSE 96; RESP 20; TEMP 36.2; O2SAT 92; BMI 44.0
--- NOTE | 2024-06-30 20:59 | EKG12_ITS ---
Test Reason : DYSRHYTHMIA Blood Pressure : */* mmHG Vent. Rate : 81 BPM Atrial Rate : 81 BPM P-R Int : 242 ms QRS Dur : 140 ms QT Int : 420 ms P-R-T Axes : 6 -47 -4 degrees QTcB Int : 487 ms Sinus rhythm with 1st degree A-V block Right bundle branch block Left anterior fascicular block Bifascicular block Minimal voltage criteria for LVH, may be normal variant ( R in aVL ) Abnormal ECG Confirmed by Jonas Perez ([id number]), mapping editor XIN VARGHESE ([id number]) on 07/01/2024 10:52:10 AM Referred By: Confirmed By: Jonas Perez
--- NOTE | 2024-06-30 21:20 | EDS_ITS ---
HPI History of Present Illness Chief Complaint: Cough Informant: patient and family Narrative Narrative: 68-year-old male presents with coughing up blood today. He has coughed up several dark blood clots and amount of blood the latter half of the day and evening now. He has COPD. He states he does not feel like he has a cold or illness, he has been coughing a lot more today, but he denies been more short of breath than usual; he has chronic dyspnea with exertion that he states is not really much different. He takes no anticoagulants. He does take a baby aspirin but no other antiplatelets. He denies any new pain or swelling in his legs, although he has some chronic mild swelling in both legs. 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 No recent antibiotics. States he has never had hemoptysis like this before although he did cough up small amount of blood this past week he states. He denies any palpitations, syncope, fevers or chills. No GI symptoms. No known history of lung cancer. [facility] Medical History Type 2 diabetes mellitus Hypertension Adult BMI 40.0-44.9 kg/sq m Non-smoker Chronic cough Hx of adenomatous colonic polyps Wears dentures Wears glasses Arthritis Kidney stones High cholesterol CPAP (continuous positive airway pressure) dependence Sleep apnea Asthma History of pain when walking History of edema Cardiology follow-up encounter Sleep apnea with use of continuous positive airway pressure (CPAP) Diabetes COPD (chronic obstructive pulmonary disease) History of kidney stones Home Medications ?Medication ?Instructions ?Recorded ?Last Taken ?Type aspirin 81 mg capsule 81 mg PO DAILY preventative 08/23/21 10/10/23 History multivitamin 1 tab PO DAILY suppliment 10/10/23 History blood sugar diagnostic (Accu-Chek #100 ea 08/10/22 Unk nown Rx Rica Plus test strips) cinnamon bark 500 mg capsule 500 mg PO DAILY supplimen t 01/04/23 10/10/23 History (Cinnamon) furosemide 20 mg tablet 20 mg PO MOTUWETHFR diuretic #90 07/21/23 10/10/23 Rx tabs omega-3 fatty acids 1,000 mg 1,000 mg PO DAILY cholese terol 08/23/23 10/10/23 History capsule fluticasone furoate 200 1 ea inhalation DAILY sob 10/10/23 History mcg-vilanterol 25 mcg/dose inhalation powder (Breo Ellipta) losartan 25 mg tablet 25 mg PO DAILY heart #90 tab s 10/17/23 Unknown Rx metformin 1,000 mg tablet 500 mg (1/2 x 1,000 mg) PO B ID 11/13/23 Unknown Rx diabetes #180 tabs carvedilol 12.5 mg tablet 12.5 mg PO BID heart #180 ta bs 12/11/23 Unknown Rx nystatin 100,000 unit/gram topical 1 applic topical TI D #30 grams 06/27/24 Unknown Rx powder cefdinir 300 mg capsule 300 mg PO BID 1 week #14 cap s 06/30/24 Unknown Rx Allergy/AdvReac Type Severity Reaction Status Date / Time azithromycin (From Zithromax) Allergy Unknown rash Verified 06/30/24 20:24 levofloxacin AdvReac Intermediate tendinitis Verified 06/30/24 20:24 Family History Father Heart disease Mother Heart disease Surgical History Total knee replacement status Hx of colonoscopy with polypectomy History of cardiac catheterization History of carpal tunnel release History of cataract extraction History of hernia repair History of knee surgery Social History household members: spouse current occupational status: retired Smoking Status: Never smoker alcohol intake: never substance use type: does not use what type of physical activity do you participate in: none ROS ROS ED Constitutional Constitutional ED: Denies chills or fever(s) Eyes Eyes: Denies change in vision or diplopia ENT ENT ED: Denies rhinorrhea or sore throat Cardiovascular Cardiovascular: Reports leg edema; Denies chest pain or palpitations Respiratory/Chest Respiratory/Chest: Reports cough, dyspnea on exertion and hemoptysis Gastrointestinal Gastrointestinal: Denies abdominal pain, diarrhea, nausea or vomiting Genitourinary Genitourinary ED: Denies dysuria or hematuria Musculoskeletal Musculoskeletal: Denies back pain or neck pain Integumentary Denies abscess or rash Neurologic Neurologic: Denies headache(s), paresthesias or weakness Psychiatric Psychiatric: Denies anxiety or suicidal thoughts EXAM Physical Exam Const Vital Signs: 06/30/24 20:25 06/30/24 20:59 06/30/24 21:44 Temperature 97.2 F L Temperature Source Temporal Pulse Rate 96 Respiratory Rate 20 H Respiratory Effort Normal Blood Pressure 148/50 H Blood Pressure Mean 82 Pulse Ox 92 Oxygen Delivery Method Room Air Room Air Positive well nourished, well developed and obese General Appearance ED: well developed and NAD Nutritional Appearance: obese HEENT Reports moist mucous membranes normocephalic and atraumatic Eyes PERRL and EOMs intact bilaterally Neck full ROM, no lymphadenopathy, supple and no JVD Resp normal respiratory effort Resp Narrative: Few high-pitched rhonchi in the bases otherwise clear. Occasionally has bronchospasm and produces a small blood clot that is dark. No bright red blood. Cardio regular rate, regular rhythm and no murmurs GI non-tender and non-distended Auscultation: normoactive bowel sounds Palpation: soft Back/Spine no CVA tenderness General Back: other FROM Extremity normal to inspection General Extremety ED: Yes edema; Negative for pulses abnormal or tenderness General Extremity: edema bilateral lower extremity Details: mild (Bilateral, symmetric. Some varicose veins but none of them are tender, no palpable cords, no erythema or tenderness.); Negative for pulses abnormal Neuro oriented x3, CN's II-XII intact bilaterally and no sensory deficits noted Sensorium / Orientation: awake and alert Motor Exam: strength 5/5 throughout Psych mental status grossly normal Skin no rashes or lesions noted and no wounds MDM MDM MDM Narrative Medical decision making narrative: Patient with COPD and send has been coughing a lot more today and now some blood. He told the physician 3 days ago that he had a chronic cough which is why an x-ray was done, I reviewed his x-ray from 3 days ago as well as his ED visit, and obtained a new two-view chest x-ray today. On my interpretation, today's x-ray shows a right basilar infiltrate that was not on his x-ray 3 days ago. Radiology in agreement. He has a mild leukocytosis but he just finished taking prednisone which is probably why he has been breathing better. He is not hypoxic here 92% on room air. The rest of the vital signs are stable and clinically he appears relatively well. He wants to try to go home if he can with antibiotics, so we ambulated him with pulse ox checking, he felt well and did not go below 90%. He wants to go home. I am comfortable with this since he is not anticoagulated. He has a follow up appt with his doctor in 3 days. PSI/PORT Score: Pneumonia Severity Index for CAP from [employer] on 06/30/2024 All calculations should be rechecked by clinician prior to use RESULT SUMMARY: 80 points Risk Class III, 0.9-2.8% mortality. Outpatient or inpatient treatment, depending on clinical judgment. INPUTS: Age ?> 68 years Sex ?> 0 = Male long-term resident ?> 0 = No Neoplastic disease ?> 0 = No Liver disease history ?> 0 = No CHF history ?> 0 = No Cerebrovascular disease history ?> 0 = No Renal disease history ?> 0 = No Altered mental status ?> 0 = No Respiratory rate >=0 breaths/min ?> 0 = No Systolic blood pressure <90 mmHg ?> 0 = No Temperature <35?C (95?F) or >39.9?C (103.8?F) ?> 0 = No Pulse >=25 beats/min ?> 0 = No pH <7.35 ?> 0 = No BUN >=0 mg/dL or >=1 mmol/L ?> 0 = No Sodium <130 mmol/L ?> 0 = No Glucose >=50 mg/dL or >=4 mmol/L ?> 10 = Yes Hematocrit <30% ?> 0 = No Partial pressure of oxygen <60 mmHg or <8 kPa ?> 0 = No Pleural effusion on x-ray ?> 0 = No History & Record Review Additional record(s) reviewed:: Prior ED visit (Including normal CXR which I also reviewed, 3 days ago) Lab Data Attestation: I reviewed the patient's lab results. Labs: Laboratory Results - last 24 hr 06/30/24 21:18 WBC 12.2 H RBC 4.22 L Hgb 13.4 Hct 39.7 L MCV 94.1 H MCH 31.8 MCHC 33.8 RDW Std Deviation 43.8 RDW Coeff of Rafa 12.7 Plt Count 222 MPV 8.7 Immature Gran % (Auto) 0.700 Neut % (Auto) 75.1 H Lymph % (Auto) 10.7 L Logan % (Auto) 11.4 H Eos % (Auto) 1.7 Baso % (Auto) 0.4 Absolute Neuts (auto) 9.2 H Absolute Lymphs (auto) 1.30 Nucleated RBC % 0 Sodium 131 L Potassium 4.0 Chloride 94 L Carbon Dioxide 19.9 L Anion Gap 18 H BUN 17 Creatinine 1.26 H Estim Creat Clear Calc 69.95 Est GFR (MDRD) Non-Af 61 BUN/Creatinine Ratio 13.6 Glucose 316 H Calcium 8.9 Radiography Diagnostic Testing: Clinical Impression(s) from Imaging Studies Chest X-Ray 06/30/24 21:50 IMPRESSION: Medial right basilar opacity which may represent atelectasis or infiltrate. Recommend radiographic follow-up after medical management to ensure resolution. Reading [facility] Rhythm Strip Rhythm Strip: Sinus Rhythm Rate: 80 Ectopy: None EKG Initial EKG: Attestation: I personally reviewed and interpreted this EKG as follows: Interpretation: Sinus Rhythm, No Acute Injury Pattern, LBBB and LAFB Prior EKG tracings: available for review Prior: Unchanged Discharge Plan Triage Chief Complaint: Cough ED Provider: Storm Hunt Dx/Rx/DC Orders Clinical Impression: Right lower lobe pneumonia, COPD (chronic obstructive pulmonary disease), Hyperglycemia due to type 2 diabetes mellitus, Cough with hemoptysis Instructions: ED Pneumonia (Adult) Prescriptions: New cefdinir 300 mg capsule 300 mg PO BID 7 Days Qty: 14 0RF No Action aspirin 81 mg capsule 81 mg PO DAILY multivitamin Tablet 1 tab PO DAILY cinnamon bark [Cinnamon] 500 mg capsule 500 mg PO DAILY omega-3 fatty acids 1,000 mg capsule 1,000 mg PO DAILY fluticasone furoate-vilanterol [Breo Ellipta] 200-25 mcg/dose blister with device 1 ea inhalation DAILY nystatin 100,000 unit/gram powder 1 applic topical TID Qty: 30 0RF (DME) Accu-Chek Rica Plus test strp Strip See Rx Instructions .Route Qty: 100 3RF Rx Instructions: BID and PRN furosemide 20 mg tablet 20 mg PO MOTUWETHFR Qty: 90 1RF losartan 25 mg tablet 25 mg PO DAILY Qty: 90 3RF metformin 1,000 mg tablet 500 mg PO BID Qty: 180 1RF carvedilol 12.5 mg tablet 12.5 mg PO BID Qty: 180 3RF Rx Instructions: must administer with a meal/food Primary Care Provider: Brandee Mejía Referrals: Brandee Mejía MD [Primary Care Provider] - 3-5 Days (or your lung doctor) Print Language: Kinyarwanda Disposition Disposition: Home, Self Care
[2024-06-30 21:38] LABS: Absolute Neutrophil Count 9.2 X10^3/uL (2.0-7.7); Basophil# 0.05 X10^3/uL; Basophil% 0.4 % (0-1); Eosinophil# 0.21 X10^3/uL; Eosinophils% 1.7 % (0-5); Hematocrit 39.7 % (40-54); Hemoglobin 13.4 g/dL (13.0-16.5); Lymphocyte % 10.7 % (19-41); Mean Corp Hgb Conc 33.8 g/dL (32-36); Mean Corpuscular Hgb 31.8 pg (27.0-32.0); Mean Corpuscular Volume 94.1 fL (80-94); Mean Platelet Vol. 8.7 fl (6.2-12.0); Monocyte# 1.39 X10^3/uL; Monocyte% 11.4 % (0-10); NRBC Flagged by Analyzer 0 % (0-5); Neutrophil # 9.15 X10^3/uL (2.7-7.7); Neutrophil % 75.1 % (47-70); Platelet Count 222 K/mm3 (150-450); RBC Distribution Width CV 12.7 % (11.6-14.6); RBC Distribution Width SD 43.8 fl (35.1-43.9); Red Blood Count 4.22 M/mm3 (4.6-6.2); White Blood Count 12.2 K/mm3 (4.4-11.0)
--- NOTE | 2024-06-30 21:50 | RAD_ITS ---
PROCEDURE: Chest radiographs REASON FOR EXAM: Cough TECHNIQUE: Frontal and lateral views of the chest. COMPARISON: 06/27/2024 FINDINGS: Cardiomediastinal silhouette is within normal limits. Medial right basilar opacity. Lungs are otherwise clear. No pleural effusion or sizable pneumothorax. RAD/Chest PA and Lateral IMPRESSION: Medial right basilar opacity which may represent atelectasis or infiltrate. Re commend radiographic follow-up after medical management to ensure resolution. Reading Location: [facility]
[2024-06-30 22:03] LABS: Anion Gap 18 (5-15); BUN 17 mg/dL (4-19); BUN/Creat Ratio 13.6 RATIO (10-20); Calcium,Total 8.9 mg/dL (7.6-11.0); Carbon Dioxide 19.9 mmol/L (21.0-32.0); Chloride 94 mmol/L (98-108); Creatinine, Serum 1.26 mg/dL (0.70-1.20); EST Glomerular Filtration Rate 61 (>60); Estimated Creatinine Clearance 69.95 ml/min (50-250); Glucose 316 mg/dL (70-99); Sodium Level 131 mmol/L (133-145)
[2024-06-30 22:37] VITALS: PULSE 93; RESP 23; O2SAT 93; O2SAT 94
[2024-06-30 22:53] VITALS: BP 117/92; PULSE 79; RESP 25; TEMP 36.8; O2SAT 93
[2024-06-30] MEDS: Insulin Lispro 100 UNIT/ML INSULN.PEN 14 UNIT SC (23:18)
[2024-06-30] MEDS: Cefdinir 300 MG Capsule PO (23:18)
== END 2024-06-30 23:22 | disposition home or self-care (01) ==
PROVIDERS: Emergency Provider Emergency Medicine; PCP Internal Medicine; Visit Provider Emergency Medicine
DX: R05.9 Cough, unspecified (principal); J44.0 Chronic obstructive pulmonary disease with (acute) lower respiratory infection; E11.65 Type 2 diabetes mellitus with hyperglycemia; J18.9 Pneumonia, unspecified organism; R04.2 Hemoptysis; E78.00 Pure hypercholesterolemia, unspecified; Z79.82 Long term (current) use of aspirin; G47.30 Sleep apnea, unspecified; Z99.89 Dependence on other enabling machines and devices; Z79.899 Other long term (current) drug therapy; Z79.51 Long term (current) use of inhaled steroids; Z79.84 Long term (current) use of oral hypoglycemic drugs; Z98.49 Cataract extraction status, unspecified eye; I10 Essential (primary) hypertension
CPT/HCPCS: 71046; 80048; 85025; 87631; 93005; 99283; A4216

== ENCOUNTER → 2024-07-11 | Outpatient (CLI) | payer MEDICARE, OTHER, SELFPAY ==
--- NOTE | 2024-07-11 14:15 | RAD_ITS ---
EXAM: CHEST PA AND LATERAL CLINICAL HISTORY: PNEUMONIS/ASTHMA COMPARISON: Chest x-ray of 06/30/2024 TECHNIQUE: PA and lateral views of the chest obtained. RAD/Chest PA and Lateral IMPRESSION: Partial interval improvement in the right basilar infiltrate is seen, without n ew or worsened pneumonic process noted. Mild left basilar atelectasis is seen No pleural effusion is clearly evident. No pneumothorax is noted. The cardiomediastinal silhouette is stable, without evidence of cardiomegaly. Mild thoracic spine degenerative changes are noted, along with extensive DISH. Reading Location: [id number]
== END | disposition home or self-care (01) ==
PROVIDERS: PCP Internal Medicine; Referring Provider Internal Medicine Pulmonary Disease; Visit Provider Internal Medicine Pulmonary Disease
DX: J45.40 Moderate persistent asthma, uncomplicated (principal); J18.9 Pneumonia, unspecified organism
CPT/HCPCS: 71046

== ENCOUNTER 2024-08-14 09:17 | Day surgery (SDC) | payer MEDICARE, OTHER, SELFPAY ==
--- NOTE | 2024-08-13 16:10 | PAT.ANE_ITS ---
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 When Was Last Pacemaker Check QUESTION #4 FULL TEXT: You/Your Family Experience fever (hyperthermia) with Anesthesia Last Oral Intake Last Oral intake: Last Oral Intake NPO since Meds taken in AM with sips of water? 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 Female No 08/13/24 12:30 HX of Motion Sickness No 08/13/24 12:30 HX of N/V After Surgery No 08/13/24 12:30 Non-Smoker Yes 08/13/24 12:30 Duration of Surgery greater No 08/13/24 12:30 than 60 minutes Number of Risk Factors 1 08/13/24 12:30 PONV Score Low Risk 08/13/24 12:30 Height & Weight Height & Weight: Anesthesia: Height & Weight Height 5 ft 7 in 07/03/24 13:04 Respiratory Assessment Respiratory Assessment - sanding machine operator or tender: Respiratory Tract Infection Hx - sanding machine operator or tender Hx Respiratory Tract Infection No 08/13/24 12:30 STOP Sleep Apnea STOP Sleep Apnea - sanding machine operator or tender: STOP Sleep Apnea - sanding machine operator or tender Hx Hypertension Yes: CONTROLLED WITH 08/13/24 12:30 Hx Sleep Apnea Yes 08/13/24 12:30 CPAP Yes 08/13/24 12:30 BIPAP No 08/13/24 12:30 Do you snore loudly (louder than talking or can be heard Do you often feel tired/ fatigued/ sleepy during daytime? Has anyone observed you stop breathing during sleep? STOP Results Positive 08/13/24 12:30 QUESTION #5 FULL TEXT : Do you snore loudly (louder than talking or can be heard through closed doors)? 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 Specify any problems Hx of Preganancy in last 3 N/A 08/13/24 12:30 Months Nurse Filling Out Transfusion [facility]BU[facility] 08/13/24 12:30 & Questions: Date: 08/13/24 08/13/24 12:30 Time: 12:31 08/13/24 12:30 Patient unable to answer at this time (ie. confused, unrespo /Reproduction History /Reproductive History - sanding machine operator or tender: /Reproductive Hx- sanding machine operator or tender Hx Now No 08/13/24 12:30 Gestational Age (in weeks): EDC: Hx Hx Para Hx Section SAB No 08/13/24 12:30 [facility] Medical History (Updated 08/13/24 @ 12:37 by Mamie Gracia) Insulin dependent diabetes mellitus History of echocardiogram History of stress test Adult BMI 40.0-44.9 kg/sq m Type 2 diabetes mellitus Non-smoker Chronic cough Hx of adenomatous colonic polyps Wears dentures Wears glasses Arthritis Kidney stones High cholesterol CPAP (continuous positive airway pressure) dependence Sleep apnea Asthma History of pain when walking History of edema Cardiology follow-up encounter Sleep apnea with use of continuous positive airway pressure (CPAP) Hypertension Diabetes COPD (chronic obstructive pulmonary disease) History of kidney stones Home Medications ?Medication ?Instructions ?Recorded ?Last Taken ?Type aspirin 81 mg capsule 81 mg PO DAILY preventative 08/23/21 08/13/24 History multivitamin 1 tab PO DAILY suppliment 10/10/23 History cinnamon bark 500 mg capsule 500 mg PO DAILY supplimen t 01/04/23 10/10/23 History (Cinnamon) furosemide 20 mg tablet 20 mg PO MOTUWETHFR diuretic #90 07/21/23 10/10/23 Rx tabs omega-3 fatty acids 1,000 mg 1,000 mg PO DAILY cholese terol 08/23/23 10/10/23 History capsule fluticasone furoate 200 1 ea inhalation DAILY sob 10/10/23 History mcg-vilanterol 25 mcg/dose inhalation powder (Breo Ellipta) carvedilol 12.5 mg tablet 12.5 mg PO BID heart #180 ta bs 12/11/23 Unknown Rx losartan 25 mg tablet 25 mg PO DAILY heart #90 tab s 07/11/24 Unknown Rx pen needle, diabetic 32 gauge x #100 ea 07/13/24 Unkno wn Rx 07/07 (Comfort EZ Pen [place]) blood sugar diagnostic (Accu-Chek #100 ea 07/26/24 Unk nown Rx Rica Plus test strips) lancets #100 ea 07/26/24 Unknown Rx insulin glargine 100 unit/mL (3 14 unit (0.14 mL) subc ut QAM #15 mL 07/30/24 Unknown Rx mL) subcutaneous pen (Lantus Solostar U-100 Insulin) metformin 1,000 mg tablet 500 mg (1/2 x 1,000 mg) PO B ID 08/07/24 Unknown Rx diabetes #180 tabs Allergy/AdvReac Type Severity Reaction Status Date / Time azithromycin (From Zithromax) Allergy Unknown rash Verified 08/13/24 12:26 levofloxacin AdvReac Intermediate tendinitis Verified 08/13/24 12:26 Family History Father Heart disease Mother Heart disease Surgical History (Updated 08/13/24 @ 12:37 by Mamie Gracia) Total knee replacement status Hx of colonoscopy with polypectomy History of cardiac catheterization History of carpal tunnel release History of cataract extraction History of hernia repair History of knee surgery Social History household members: spouse current occupational status: retired Smoking Status: Never smoker alcohol intake: never substance use type: does not use what type of physical activity do you participate in: none Audit: Pertinent Findings Pertinent Findings EKG Perinent findings: June 30, 2024. Sinus rhythm with first-degree AV block. Right bundle branch block. Left anterior fascicular block. Unchanged from EKG of August 23, 2023. Stress test pertinent findings: September 13, 2023. Ejection fraction 60%. No evidence of significant ischemia or infarction. Echo (EF%) pertinent findings: August 30, 2023. Ejection fraction 55%. PA systolic pressure is 21 mmHg. Mild aortic stenosis. Consult pertinent findings: November 30, 2023. Dr. Perez. 1. Diabetes type 2?acute-patient's last A1c is 6.8. Well-controlled. 2. Atherosclerotic coronary vascular disease?acute. Last cardiac catheterization showed mild nonobstructive coronary disease in 2017. Latest echo and stress are above. Mild aortic stenosis is noted. 3. Hypertension?chronic-controlled. 4. Sleep apnea?acute-need to work on weight control. 5. Aortic valve stenosis?acute-mild. Follow-up on yearly basis. Recommendation Anesthesia Recommendation Anesthesia recommendation: OPTIMIZED for anesthesia (Avoid high heart rates or low blood pressures. Phenylephrine is drug of choice for low blood pressure.)
[2024-08-14] VITALS (9 sets, daily range): BP systolic 104–143; BP diastolic 49–76; PULSE 63–80; RESP 16–18; TEMP 36.1–37; O2SAT 92–94; BMI 43.1
--- NOTE | 2024-08-14 09:30 | PRE.ANES_ITS ---
ASA Classification* ASA Classification ASA Classification: 3 Assessment & Plan Anesthesia* Anesthesia Assessment Anesthesia Assessment: Discussed sedation and/or anesthesia options, risks, benefits, and alternatives with patient/parents/legal guardian/POA. Questions invited. The patient/parents/legal guardian/POA seems to understand and agrees to proceed with anesthesia plan. Reviewed the physical assessment, medical history, allergy history and patient home medications list prior to surgery/procedure/anesthetic and documented any changes. Performed airway and anesthesia risk assessments. Anesthesia Type Anesthesia Type: General Anesthesia Focused Assessment* Airway Assessment Mouth opens: >3 cm Mallampati Score: II Focused Labs Anesthesia Preop lab: CBC WBC 12.2 K/mm3 (4.4-11.0) H 06/30/24 21:18 5 RBC 4.22 M/mm3 (4.6-6.2) L 06/30/24 21:18 06/30/24 Hgb 13.4 g/dL (13.0-16.5) 06/30/24 21:18 06/30/24 Hct 39.7 % (40-54) L 06/30/24 21:18 06/30/24 Plt Count 222 K/mm3 (150-450) 06/30/24 21:18 06/30/24 CHEMISTRY Potassium 4.0 mmol/L (3.3-5.1) 06/30/24 21:18 06/30/24 Sodium 131 mmol/L (133-145) L 06/30/24 21:18 06/30/24 Magnesium 1.7 mg/dL (1.6-2.6) 10/11/23 06:12 10/11/23 Phosphorus 2.8 mg/dL (2.5-4.9) 10/11/23 06:12 10/11/23 BUN 17 mg/dL (4-19) 06/30/24 21:18 06/30/24 Creatinine 1.26 mg/dL (0.70-1.20) H 06/30/24 21:18 Glucose 316 mg/dL (70-99) H 06/30/24 21:18 06/30/24 POC Glucose 215 mg/dL (74-106) H 06/27/24 18:29 06/27/24 TSH 1.78 uIU/mL (0.358-3.74) 07/28/22 12:54 COAG PT 14.0 SECONDS (11.7-14.9) 07/28/22 12:57 Pre-Assessment Diagnosis/Proposed Procedure Planned Operative Procedure(s): ESWL, URETEROSCOPY, STENT Anesthesia History 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 When Was Last Pacemaker Check QUESTION #4 FULL TEXT: You/Your Family Experience fever (hyperthermia) with Anesthesia Last Oral Intake Last Oral intake: Last Oral Intake NPO since Meds taken in AM with sips of water? 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 Female No 08/13/24 12:30 HX of Motion Sickness No 08/13/24 12:30 HX of N/V After Surgery No 08/13/24 12:30 Non-Smoker Yes 08/13/24 12:30 Duration of Surgery greater No 08/13/24 12:30 than 60 minutes Number of Risk Factors 1 08/13/24 12:30 PONV Score Low Risk 08/13/24 12:30 Height & Weight Height & Weight: Anesthesia: Height & Weight Height 5 ft 7 in 07/03/24 13:04 Respiratory Assessment Respiratory Assessment - chemical lab supervisor: Respiratory Tract Infection Hx - chemical lab supervisor Hx Respiratory Tract Infection No 08/13/24 12:30 STOP Sleep Apnea STOP Sleep Apnea - chemical lab supervisor: STOP Sleep Apnea - chemical lab supervisor Hx Hypertension Yes: CONTROLLED WITH 08/13/24 12:30 Hx Sleep Apnea Yes 08/13/24 12:30 CPAP Yes 08/13/24 12:30 BIPAP No 08/13/24 12:30 Do you snore loudly (louder than talking or can be heard Do you often feel tired/ fatigued/ sleepy during daytime? Has anyone observed you stop breathing during sleep? STOP Results Positive 08/13/24 12:30 QUESTION #5 FULL TEXT : Do you snore loudly (louder than talking or can be heard through closed doors)? 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 Specify any problems Hx of Preganancy in last 3 N/A 08/13/24 12:30 Months Nurse Filling Out Transfusion [facility] 08/13/24 12:30 & Questions: Date: 08/13/24 08/13/24 12:30 Time: 12:31 08/13/24 12:30 Patient unable to answer at this time (ie. 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: /Reproductive Hx- chemical lab supervisor Hx Now No 08/13/24 12:30 Gestational Age (in weeks): EDC: Hx Hx Para Hx Section SAB No 08/13/24 12:30 Active Medications Active Medications: Current Medications Generic Name Dose Route Start Last Admin Trade Name Freq PRN Reason Stop Dose Admin Cefazolin Sodium 2 gm/ N/A 20 mls @ 400 mls/hr 08/14/24 11:25 IV 08/14/24 11:27 INTRAOP ONE [facility] Medical History Insulin dependent diabetes mellitus History of echocardiogram History of stress test Adult BMI 40.0-44.9 kg/sq m Type 2 diabetes mellitus Non-smoker Chronic cough Hx of adenomatous colonic polyps Wears dentures Wears glasses Arthritis Kidney stones High cholesterol CPAP (continuous positive airway pressure) dependence Sleep apnea Asthma History of pain when walking History of edema Cardiology follow-up encounter Sleep apnea with use of continuous positive airway pressure (CPAP) Hypertension Diabetes COPD (chronic obstructive pulmonary disease) History of kidney stones Home Medications ?Medication ?Instructions ?Recorded ?Last Taken ?Type aspirin 81 mg capsule 81 mg PO DAILY preventative 08/23/21 08/13/24 History multivitamin 1 tab PO DAILY suppliment 10/10/23 History cinnamon bark 500 mg capsule 500 mg PO DAILY supplimen t 01/04/23 10/10/23 History (Cinnamon) furosemide 20 mg tablet 20 mg PO MOTUWETHFR diuretic #90 07/21/23 10/10/23 Rx tabs omega-3 fatty acids 1,000 mg 1,000 mg PO DAILY cholese terol 08/23/23 10/10/23 History capsule fluticasone furoate 200 1 ea inhalation DAILY sob 10/10/23 History mcg-vilanterol 25 mcg/dose inhalation powder (Breo Ellipta) carvedilol 12.5 mg tablet 12.5 mg PO BID heart #180 ta bs 12/11/23 Unknown Rx losartan 25 mg tablet 25 mg PO DAILY heart #90 tab s 07/11/24 Unknown Rx pen needle, diabetic 32 gauge x #100 ea 07/13/24 Unkno wn Rx 07/07 (Comfort EZ Pen [place]) blood sugar diagnostic (Accu-Chek #100 ea 07/26/24 Unk nown Rx Rica Plus test strips) lancets #100 ea 07/26/24 Unknown Rx insulin glargine 100 unit/mL (3 14 unit (0.14 mL) subc ut QAM #15 mL 07/30/24 Unknown Rx mL) subcutaneous pen (Lantus Solostar U-100 Insulin) metformin 1,000 mg tablet 500 mg (1/2 x 1,000 mg) PO B ID 08/07/24 Unknown Rx diabetes #180 tabs Allergy/AdvReac Type Severity Reaction Status Date / Time azithromycin (From Zithromax) Allergy Unknown rash Verified 08/13/24 12:26 levofloxacin AdvReac Intermediate tendinitis Verified 08/13/24 12:26 Family History Father Heart disease Mother Heart disease Surgical History Total knee replacement status Hx of colonoscopy with polypectomy History of cardiac catheterization History of carpal tunnel release History of cataract extraction History of hernia repair History of knee surgery Social History household members: spouse current occupational status: retired Smoking Status: Never smoker alcohol intake: never substance use type: does not use what type of physical activity do you participate in: none Review of Systems (Anesthesia) ROS Narrative System reviewed and no additional complaints, except as documented.
[2024-08-14] MEDS: Lactated Ringers 1,000 ML 15 ML IV (09:45)
--- NOTE | 2024-08-14 10:52 | PCM.HP.STD ---
HPI - General General Date of Service: 08/14/24 Chief Complaint: Left ureteral calculi and left kidney stones HPI Narrative NATALEE GALICIA, is a 68 M who presents obstructing stone in the distal left ureter and also stone in the left kidney plan to treat the stones in the ureter with laser lithotripsy and will do ESWL stones in the kidney and place a stent [facility] Medical History Insulin dependent diabetes mellitus History of echocardiogram History of stress test Adult BMI 40.0-44.9 kg/sq m Type 2 diabetes mellitus Non-smoker Chronic cough Hx of adenomatous colonic polyps Wears dentures Wears glasses Arthritis Kidney stones High cholesterol CPAP (continuous positive airway pressure) dependence Sleep apnea Asthma History of pain when walking History of edema Cardiology follow-up encounter Sleep apnea with use of continuous positive airway pressure (CPAP) Hypertension Diabetes COPD (chronic obstructive pulmonary disease) History of kidney stones Home Medications ?Medication ?Instructions ?Recorded ?Last Taken ?Type aspirin 81 mg capsule 81 mg PO DAILY preventative 08/23/21 08/13/24 History multivitamin 1 tab PO DAILY suppliment 08/23/21 10/10/23 History cinnamon bark 500 mg capsule 500 mg PO DAILY suppliment 01/04/23 10/10/23 History (Cinnamon) furosemide 20 mg tablet 20 mg PO MOTUWETHFR diuretic #90 07/21/23 10/10/23 Rx tabs omega-3 fatty acids 1,000 mg 1,000 mg PO DAILY choleseterol 08/23/23 10/10/23 History capsule fluticasone furoate 200 1 ea inhalation DAILY sob 10/10/23 10/10/23 History mcg-vilanterol 25 mcg/dose inhalation powder (Breo Ellipta) carvedilol 12.5 mg tablet 12.5 mg PO BID heart #180 tabs 12/11/23 Unknown Rx losartan 25 mg tablet 25 mg PO DAILY heart #90 tabs 07/11/24 Unknown Rx pen needle, diabetic 32 gauge x #100 ea 07/13/24 Unknown Rx 3/16 (Comfort EZ Pen [place]) blood sugar diagnostic (Accu-Chek #100 ea 07/26/24 Unknown Rx Rica Plus test strips) lancets #100 ea 07/26/24 Unknown Rx insulin glargine 100 unit/mL (3 14 unit (0.14 mL) subcut QAM #15 mL 07/30/24 Unknown Rx mL) subcutaneous pen (Lantus Solostar U-100 Insulin) metformin 1,000 mg tablet 500 mg (1/2 x 1,000 mg) PO BID 08/07/24 Unknown Rx diabetes #180 tabs Allergy/AdvReac Type Severity Reaction Status Date / Time azithromycin (From Zithromax) Allergy Unknown rash Verified 08/13/24 12:26 levofloxacin AdvReac Intermediate tendinitis Verified 08/13/24 12:26 Family History Father Heart disease Mother Heart disease Surgical History Total knee replacement status Hx of colonoscopy with polypectomy History of cardiac catheterization History of carpal tunnel release History of cataract extraction History of hernia repair History of knee surgery Social History household members: spouse current occupational status: retired Smoking Status: Never smoker alcohol intake: never substance use type: does not use what type of physical activity do you participate in: none Vital Signs Vital Signs Vital Signs: 08/14/24 09:43 08/14/24 09:43 Temperature 98.6 F Temperature Source Temporal Pulse Rate 63 Respiratory Rate 16 Respiratory Pattern Normal Blood Pressure 124/71 H Blood Pressure Mean 88 Blood Pressure Source Monitor Blood Pressure Position Supine Blood Pressure Location Right Arm Pulse Ox 94 Oxygen Delivery Method Room Air Weight Weight: 124.9 kg Body Mass Index (BMI) 43.1
--- NOTE | 2024-08-14 10:53 | PCM.DC ---
Discharge Instructions Diet Discharge Diet: No restrictions DC O2, CPAP, BIPAP needs Home O2 Discharge instructions: No Dressing / Incision Discharge Activity: Return to Normal Activity and May Not Drive (while taking narcotic pain medications.) Dressing / Incision Call your doctor if you observe: Fever of 101 or Higher Follow Up Care Please Follow Up With: Ovidio Whitmore MD When: Call [phone] for an appointment Test Results: Test results from this visit will be discussed in further detail at your follow-up appointment, if applicable. Discharge Plan Admission Primary Reason for Your Visit: laser stones and ESWL Attending Provider: Ovidio Whitmore Primary Care Provider: Brandee Mejía Instructions Print Language: Serbian Discharge Orders/Prescriptions Prescriptions: Continued aspirin 81 mg capsule 81 mg PO DAILY multivitamin Tablet 1 tab PO DAILY cinnamon bark [Cinnamon] 500 mg capsule 500 mg PO DAILY omega-3 fatty acids 1,000 mg capsule 1,000 mg PO DAILY fluticasone furoate-vilanterol [Breo Ellipta] 200-25 mcg/dose blister with device 1 ea inhalation DAILY furosemide 20 mg tablet 20 mg PO MOTUWETHFR Qty: 90 1RF carvedilol 12.5 mg tablet 12.5 mg PO BID Qty: 180 3RF Rx Instructions: must administer with a meal/food losartan 25 mg tablet 25 mg PO DAILY Qty: 90 3RF (DME) pen needle, diabetic [Comfort EZ Pen [place]] 32 gauge x 3/16 needle See Rx Instructions .Route Qty: 100 1RF Rx Instructions: As directed (DME) lancets Misc See Rx Instructions .Route Qty: 100 0RF Rx Instructions: As directed Please fill with what is preferred (DME) Accu-Chek Rica Plus test strp Strip See Rx Instructions .Route Qty: 100 3RF Rx Instructions: BID and PRN insulin glargine [Lantus Solostar U-100 Insulin] 100 unit/mL (3 mL) insulin pen 14 unit subcut QAM Qty: 15 0RF metformin 1,000 mg tablet 500 mg PO BID Qty: 180 1RF Referrals / Follow Up: Brandee Mejía MD [Primary Care Provider] - Disposition Disposition (needs filled in before D/C Order can be placed): Home, Self Care
[2024-08-14 10:55] LABS: Bedside Glucose 197 mg/dL (74-106)
[2024-08-14] MEDS: Cefazolin 2 GM in Syringe IV (11:08)
--- NOTE | 2024-08-14 11:44 | PCM.OPRPT ---
Operative Report (Standard) Operative Information Date of Procedure: 08/14/24 Pre-Operative Diagnosis: Stone in the distal left ureter and left kidney stones Post-Operative Diagnosis: The same Surgery/Procedure Performed: Cystoscopy left ureteroscopy laser lithotripsy of stone and distal ureter balloon dilation and left stent placement, left extracorporeal shockwave for kidney stones digital marketing specialist: No Type of Anesthesia: General RN Documented Start/Stop Times: Operation Date: 08/14/24 11:25 Case Time Into Pre-Op 08/14/24 09:32 Out of Pre-Op 08/14/24 10:45 Anesthesia Start 08/14/24 10:58 Into Room 08/14/24 10:58 Procedure Start 08/14/24 11:11 Procedure Start Time: 11:11 Procedure Stop Time: 11:51 Select all DRAINS/GRAFTS/IMPLANTS that apply: Drains Drain details: 6 x 26 stent left side Estimated Blood Loss: 5 Specimen collected: No Description of surgery: Patient presents to the hospital for treatment of a kidney stone with shockwave lithotripsy. In the preoperative area and x-ray was done to confirm the location of the stone. The x-ray was reviewed and the stone location was reviewed. In the preoperative setting I spoke with the patient regarding the treatment of the stone how the treatment would be conducted and the expectations after surgery. The patient understands there is a risk of bleeding and infection. Also discussed the very rare risk of hematoma or damage to the kidney. We also discussed the risk that the shockwave machine will fail to break the stone adequately and that the patient may need other surgical procedures. I also discussed the possibility that the patient may need a stent after the procedure. After reviewing the procedure with the patient, the patient is signed the consent form all the patient's questions were addressed and was taken back to the operating room for treatment of a kidney stone. Patient was taken back to the operating room, the patient was identified by the nursing staff, I identified the side of the treatment and the patient side of treatment had been marked by my initials. The patient underwent general anesthetic and was placed supine on the lithotripter table. I then used fluoroscopy to identify the stone on the left kidney. I then positioned the patient under the lithotripter and I used triangulation technique to identify the location of the stone and then I made sure that the stone was engaged in the F2 focal point of F2 Donier lithoprior machine. Once the patient was positioned appropriately and the stone was identified and placed in the F2 focal point of the lithotripter machine I then proceeded with shockwave lithotripsy. In the beginning the shockwave was delivered at a rate of 90 shocks per minute, anesthesia monitored the EKG for any ectopy. The power was slowly increased to 5 kV and subsequently at the 7 kV. I then proceeded with the treatment with shock wave therapy and around during the treatment to make sure the stone stayed in the F2 focal point during the entire treatment and after 3000 shockwaves were delivered to the stone under fluoroscopic guidance the treatment was completed. The patient was given instructions to call the office to make an a follow-up appointment with an x-ray to evaluate the success of the treatment, patient understands that its possible the stones may need another procedure. The proceed with left ureteroscopy laser distal left ureteral calculi, The genitals were prepped and draped in usual sterile fashion. I went into the bladder with a 21 Nepali rigid cystourethroscope through the urethra. Upon entering the bladder I inspected the trigone the left and right ureteral orifice and the bladder itself. I then cannulated the left ureteral orifice and advanced a 0.038 Glidewire up into the kidney. Then over the Glidewire I advanced a 5 Fr Ureteral catheter and performed a retrograde pyelogram with about 10cc of contrast, to delineate the anatomy and identify the stone location. Then a ureteral balloon dilator was advanced over the wire and the distal ureter was balloon dilated with a 12 Fr x 5cm balloon dilator. After 3 minutes of dilating the ureter the balloon was backloaded off the 0.038 glidewire then the safety wire was left in place. I then placed a second 0.038 Guidewire as a working wire and over the working 0.038 guidewire I went in with the marcel rigide 7.5fr ureteroscope. I was able to go inside with the 7.5Fr marcel rigid utereroscope and I pulled out the working guidewire and then through the flexible ureteroscope I engage the stone in the distal ureter with laser lithotripsy using a 270miron laser fiber with energy setting of 6 Hertz and 0.6 J until the stone was lasered into tiny little pieces that should pass on their own. A retrograde pyelogram was performed with 10cc of contrast and no extravasation of contrast or perforation was identified in the ureter there was some mild irritation of the ureter where the stone was located. I then backed out of the ureter left the wire in place and then over the 0.038 guidewire I placed a double coiled pigtail ureteral stent. The ureteral stent was advanced over the 0.038 guidewire under direct fluoroscopic guidance and direct cystoscopic visual guidance, once the stent was in good position I pulled the wire and the stent coiled in the kidney and bladder in good position. I then drained the patient's bladder and the cystoscope was removed and the patient was taken back to the recovery room in good position. The patient was given discharge instructions to call the office for instructions on when to come to the office to have the stent removed. At this point the patient's anesthetic was reversed patient was extubated and taken back to the PACU in stable condition. Surgical Findings: Stone in the distal left ureter lasered and removed, stones in the kidney treated with shockwave lithotripsy and stent placed Complications Complications: No Admit VTE Documentation VTE Present on Admission: No VTE Mechan Device Prophylaxis: SCD's VTE Pharm Prophylaxis ordered?: No
--- NOTE | 2024-08-14 12:03 | PCM.POST.ANE ---
Anesthesia: Postop Eval I Current Vital Signs Temperature: 97 F Pulse Rate: 76 Blood Pressure: 104/49 Respiratory Rate: 16 Pulse Ox: 93 Assessment Airway patent: Yes Spontaneous unlabored respirations: Yes Mental status: Awake nausea: No Vomiting: No Anesthesia Complication: No Fluid Hydration Crystalloid volume administer (ml): 900 Total IV fluid infused: 900 Progress Note Anesthesia document: Postop Eval 1 completed: Yes
--- NOTE | 2024-08-14 12:07 | POSTOPAN2_ITS ---
Anesthesia Postop Eval I Sum Postop Eval Completion status Anesthesia document: Postop Eval 1 completed: Yes Anesthesia Postop Eval I Summary Anesthesia Postop Eval I Summary: Anesthesia Postop Eval I: Assessment Summary Airway patent Yes 08/14/24 12:04 GENERAL [email or web address] Spontaneous unlabored Yes 08/14/24 12:04 GENERAL ACCOUNTANT.[email or web address] respirations Mental status Awake 08/14/24 12:04 GENERAL [email or web address].[email or web address] nausea No 08/14/24 12:04 GENERAL ACCOUNTANT.JDEF Vomiting No 08/14/24 12:04 GENERAL ACCOUNTANT.JDEF Anesthesia Postop Eval I: Fluid Summary Crystalloid volume administer 900 08/14/24 12:04 GENERAL ACCOUNTANT.JDEF (ml) Colloids volume administered ( ml) Blood Product volume administered (ml) Total IV fluid infused 900 08/14/24 12:04 GENERAL ACCOUNTANT.JDEF Anesthesia Postop Eval I: Summary Notes Anesthesia Complication No 08/14/24 12:04 GENERAL [email or web address].JDEF Anesthesia Complication Comment: Post-operative progress note Anesthesia: Postop Eval II Evaluation Mental status: Awake Pain Level: 0 nausea: No Vomiting: No
--- NOTE | 2024-08-14 12:07 | PCM.POSTANE2 ---
Anesthesia Postop Eval I Sum Postop Eval Completion status Anesthesia document: Postop Eval 1 completed: Yes Anesthesia Postop Eval I Summary Anesthesia Postop Eval I Summary: Anesthesia Postop Eval I: Assessment Summary Airway patent Yes 08/14/24 12:04 YOUTH DEVELOPMENT SPECIALIST.[email or web address] Spontaneous unlabored Yes 08/14/24 12:04 YOUTH DEVELOPMENT SPECIALIST.JDEF respirations Mental status Awake 08/14/24 12:04 YOUTH DEVELOPMENT SPECIALIST.JDEF nausea No 08/14/24 12:04 YOUTH DEVELOPMENT SPECIALIST.JDEF Vomiting No 08/14/24 12:04 YOUTH DEVELOPMENT SPECIALIST.JDEF Anesthesia Postop Eval I: Fluid Summary Crystalloid volume administer 900 08/14/24 12:04 YOUTH DEVELOPMENT SPECIALIST.JDEF (ml) Colloids volume administered ( ml) Blood Product volume administered (ml) Total IV fluid infused 900 08/14/24 12:04 YOUTH DEVELOPMENT SPECIALIST.JDEF Anesthesia Postop Eval I: Summary Notes Anesthesia Complication No 08/14/24 12:04 YOUTH DEVELOPMENT SPECIALIST.JDEF Anesthesia Complication Comment: Post-operative progress note Anesthesia: Postop Eval II Evaluation Mental status: Awake Pain Level: 0 nausea: No Vomiting: No
[2024-08-14] MEDS: Ketorolac 15 MG/ML Vial IV (12:20)
== END 2024-08-14 13:30 | disposition home or self-care (01) ==
LOC: SDC 09:17 → AC 09:18
PROVIDERS: PCP Internal Medicine; Referring Provider Urology; Visit Provider Urology
PROC: (CPT 50590; principal; 2024-08-14 11:15)
DX: N20.2 Calculus of kidney with calculus of ureter (principal); J44.9 Chronic obstructive pulmonary disease, unspecified; E11.9 Type 2 diabetes mellitus without complications; Z79.4 Long term (current) use of insulin; I10 Essential (primary) hypertension; E78.00 Pure hypercholesterolemia, unspecified; Z79.51 Long term (current) use of inhaled steroids; Z79.82 Long term (current) use of aspirin; Z79.84 Long term (current) use of oral hypoglycemic drugs; Z79.899 Other long term (current) drug therapy
CPT/HCPCS: 50590; 52356; 00873; 82962; C1769; C2617; J2405

== ENCOUNTER → 2025-01-21 | Outpatient (CLI) | payer MEDICARE, OTHER, SELFPAY ==
--- OUTSIDE RECORDS SUMMARY | 2024-08-12 19:26 | XMS RPT_ITS ---
Author Name Auto Generated Organization [facility] Care Team Providers Care Email Producer Name Role Phone HUMZA GAN MD Attending Unavailable PHYSICIAN, NOT RECORDED Primary Care Unavaila ble PROBLEMS DATE TYPE CONDITION / CODE ATTENDING STATUS TRAY RCE 08/12/2024 Unknown Unspecified anjelica l colic / N23(ICD-10) HUMZA GAN MD Active [facility] PROCEDURES No Procedure Records Found RESULTS UA Collected: 08/12/2024 9:31 PM Status: F Source: [facility] TYPE CODE TESTS RESULT OUT OF RANGE REFERENCE UNITS LAB SPCUA(LOINC) UA Specimen Type Clean Catch LAB CLRUA(LOINC) UA Color Yellow LAB APPUA(LOINC) UA Appear Clear Clear LAB SGUA(LOINC) UA Spec Grav 1.015 1.015-1.025 LAB GLUA(LOINC) UA Glucose Negative Negative mg/dL LAB BILUA(LOINC) UA Bili Negative Negative LAB KETUA(LOINC) UA Ketones Negative Negative mg/dL LAB BLDUA(LOINC) UA Blood Moderate Abnormal Negative LAB PHUA(LOINC) UA pH 6.0 5.0 - 8.0 LAB PROUA(LOINC) UA Protein Trace Negative mg/dL LAB UROUA(LOINC) UA Urobilinogen 0.2 0.2-1.0 E.U ./dL LAB NITUA(LOINC) UA Nitrite Negative Negative LAB LEUUA(LOINC) UA Leuk Est Negative Negative Performed By: #### UAMICAO, UA #### [facility] [address] [place], [place] [address] .URINALYSIS MICROSCOPIC (AO) Collected: 08/12/2024 9: 31 PM Status: F Source: [facility] TYPE CODE TESTS RESULT OUT OF RANGE REFERENCE UNITS LAB WBCUA(LOINC) UA WBC 0-5 Abnormal None Seen /hpf LAB RBCUA(LOINC) UA RBC 10-15 Abnormal None Seen /hpf LAB EPIUA(LOINC) UA Squam Epithelial None Seen None Seen /hpf Performed By: #### UAMICAO, UA #### [facility] [address] [place], [place] [address] CT ABDOMEN/PELVIS W/O CONTRAST Observed: 08/12/2024 9:22 PM Status: F Source: [facility] ORIGINAL EXAMINATION: CT OF THE ABDOMEN AND PELVIS WITHOUT CONTRAST08/12/2024 9:24 pm TECHNIQUE: CT of the abdomen and pelvis was performed without the administration of intravenous contrast. Multiplanar reformatted images are provided for review. Automated exposure control, iterative reconstruction, and/or weight based adjustment of the mA/kV was utilized to reduce the radiation dose to as low as reasonably achievable. COMPARISON: CT abdomen/pelvis 02/11/2021 HISTORY: ORDERING SYSTEM PROVIDED HISTORY: Reason for Exam: abdominal pain FINDINGS: The liver, gallbladder, pancreas, spleen, and bilateral adrenal glands are unremarkable. No right hydronephrosis or urolithiasis. Mild left hydronephrosis. 5 mm calculus in the mid left ureter. Left perinephric stranding. Nonobstructive left nephrolithiasis. Additionally, there is a 1.0 cm calculus in the left renal pelvis. Under distended urinary bladder is suboptimally evaluated. No acute abnormality of the imaged GI tract. Diverticulosis; no evidence of acute diverticulitis. Unremarkable appendix. No pathologically enlarged lymph nodes. 3.0 cm peripherally calcified lesion in the anterior midline mesentery, chronic and benign. Nonaneurysmal abdominal aorta. Mild atherosclerotic calcifications. No acute osseous abnormality.No aggressive osseous lesions.Varying degrees of multifocal degenerative change. Diffuse idiopathic skeletal hyperostosis. Partially imaged small lipomas in the proximal quadriceps bilaterally. Ground-glass opacification at the left lung base. Tiny nodular opacities at the right lung base. Small consolidation at the posteromedial right lung base. Dense mitral annular calcifications. IMPRESSION: 5 mm calculus in the mid left ureter results in mild left-sided obstruction, as above. Nonobstructive left nephrolithiasis. Tiny nodular opacities the right lung base may be infectious or inflammatory. Follow-up in 8-12 weeks is recommended to ensure clearing. Other ground-glass opacity at the left lung base and small consolidation at the right lung base. Attention on follow-up is recommended. I have personally reviewed the images of this examination and agree with the resident's findings and interpretation. Interpreted by: John Chavez Preliminary Report By: Jonas Corona Electronically signed By John Chavez Dictated Date: 08/12/2024 9:40:40 PM Prelim Date: 08/12/2024 9:55:00 PM Sign Date: 08/12/2024 9:56:45 PM Ordering Provider: HUMZA GAN CBC Collected: 8:18 PM Status: F Source: [facility] TYPE CODE TESTS RESULT OUT OF RANGE REFERENCE UNITS LAB WBC(LOINC) WBC 10.2 4.5-10.8 10 3/mcL LAB RBCCT(LOINC) RBC 4.33 Low 4.50-6.00 10 6/mcL LAB HGB(LOINC) Hgb 13.6 13.0-17.5 G/dL LAB HCT(LOINC) Hct 39.8 Low 40.0-52.0 % LAB MCV(LOINC) MCV 91.9 81.0-100.0 fL LAB MCH(LOINC) MCH 31.5 27.0-33.0 pg LAB MCHC(LOINC) MCHC 34.2 32.0-36.0 G/dL LAB RDW(LOINC) RDW 14.4 11.5-15.5 % LAB PLT(LOINC) Platelet 258 150-450 10 3/mcL LAB MPV(LOINC) MPV 6.7 6.4-10.5 fL Performed By: #### ADIFF, BM P, GFR, ANEU, MDW, CBC #### [facility] [address] [place], [place] [address] .AUTO DIFF Collected: 08/12/2024 8:18 PM Status: F Source: [facility] TYPE CODE TESTS RESULT OUT OF RANGE REFERENCE UNITS LAB KAILYN(LOINC) Neutrophil % 77.9 High 50.0-75.0 % LAB LYM(LOINC) Lymphocyte % 12.2 Low 20.0-40.0 % LAB MON(LOINC) Monocyte % 8.6 2.0-13.0 % LAB EO(LOINC) Eosinophil % 0.5 0.0-6.0 % LAB BAS(LOINC) Basophil % 0.8 0.0-2.5 % LAB ABLYM(LOINC) Lymphocyte, Absolute 1.3 0.9-4.3 10 3/mcL LAB JUAN(LOINC) Monocyte, Absolute 0.9 0.1-1.4 10 3/mcL LAB AEOS(LOINC) Eosinophil, Absolute 0.0 0.0-0.7 10 3/mcL LAB ABAS(LOINC) Basophil, Absolute 0.1 0.0-0.3 10 3/mcL Performed By: #### LISA, BM P, GFR, ANEU, MDW, CBC #### [address] [address] .NEUABS Collected: 8:18 PM Status: F Source: [facility] TYPE CODE TESTS RESULT OUT OF RANGE REFERENCE UNITS LAB ANEU(LOINC) Neutrophil, Absolute 8.0 2.3-8.1 10 3/mcL Performed By: #### LISA, BM P, GFR, ANEU, MDW, CBC #### [address] [address] .MDW Collected: 08/12/2024 8:18 PM Status: F Source: [facility] TYPE CODE TESTS RESULT OUT OF RANGE REFERENCE UNITS LAB MDW(LOINC) Monocyte Distribution Width 20.07 High 0.00-20.00 Result Comment: For adults i n ED, MDW>20.0 may be associated with a higher risk of sepsis during the first 12hrs of hospital admission Performed By: #### LISA, BM P, GFR, ANEU, MDW, CBC #### [address] [address] BMP Collected: 08/12/2024 8:18 PM Status: F Source: [facility] TYPE CODE TESTS RESULT OUT OF RANGE REFERENCE UNITS LAB GLU(LOINC) Glucose Level 225 High 83-110 mg/dL LAB NA(LOINC) Sodium Level 138 136-145 mmol/L LAB K(LOINC) Potassium Level 4.2 3.5-5.1 mmol/L LAB CL(LOINC) Chloride 100 98-107 mmol/L LAB CO2(LOINC) CO2 27 23-31 mmol/L LAB EBAL(LOINC) Electrolyte Balance 11.0 4.0-15.0 mEq/L LAB BUN(LOINC) BUN 22 High 7-18 mg/dL LAB CRE(LOINC) Creatinine Lvl (s) 1.88 High 0.70-1.30 mg/dL Result Comment: Testing perf ormed on Siemens Dimension EXL analyzer using a modified kinetic Chasidy technique. LAB BC(LOINC) BUN/Creatinine Ratio 12 7-27 ratio LAB CA(LOINC) Calcium Lvl 9.4 8.4-10.2 mg/dL Performed By: #### LISA BM P, GFR, ROBERT TALBERT, CBC #### [place] [address] [address] .GFR Collected: 08/12/2024 8:18 PM Status: F Source: [facility] TYPE CODE TESTS RESULT OUT OF RANGE REFERENCE UNITS LAB eGFR([facility]) Estimated Glomerular Filtration Rate 38 ml/min/1. 73sqm Result Comment: Stages of Chronic Kidney Disease (CKD) Stage Description eGFR(ml/min/1.73 sq.m.) CKD 1 Normal kidney function or >=90 normal kindney function with possible kidney damage (ex. Proteinuria) CKD 2 Kidney damage with mild loss 60-89 of kidney function CKD 3a Mild to moderate loss of kidney 45-59 function CKD 3b Moderate to severe loss of 30-44 of kindey function CKD 4 Severe loss of kidney function 15-29 CKD 5 Kidney failure <15 Note: (go live 2024) the eGFR calculation was updated to the 2020 CKD-EPI creatinine equation without a race factor to calculate the eGFR results. Performed By: #### LISA, BM P, GFR, ROBERT TALBERT, CBC #### [place] [place], [place] [address] ALLERGIES No Allergies Records Found ENCOUNTERS ADMIT/DISCHARGE ACCOUNT NUMBER ADMITTING ENCOUNTER CLASS LOCATION SOURCE 08/12/2024/ 5 [id number] Emergency [facility]Building: O [facility] PAYERS ENCOUNTER GUARANTOR PAYER SUBSCRIBER SOURCE 08/12/2024 NATALEE CHILDERS: [id number] [place] [email or web address]: (HP) (WP) Primary Insurance:MEDICARE PART B INSCOPolicy Number: [id number] Date:[id number] Name:Sweta Lockett [address] [place] [address]EZ: NATALEE SCHWABB: [id number] [place] [address]Awn: (HP) (WP) [facility] 08/12/2024 Secondary Insurance:EVERENCE INSCOPolicy Number: [id number] Date:[id number] Name:[facility]IC GENERALSweta Lockett [address] [place], [place] [address] [place] [address]RC: NATALEE SCHWABB: [id number] [place] [address]Jav: (HP) (WP) [facility]
--- NOTE | 2025-01-21 10:55 | CALC_PTH ---
PATIENT: NATALEE GALICIA LOC: [facility] U#:[id number] AGE/SX: 69/M ROOM: RE01/21/[address]: Dr. Ovidio Whitmore MD : 1955 BED: DIS: 01/21/2025 SPEC #: [id number] RECD: 01/21/25 15:00 STATUS: AJIT REMichael #: [id number] ZEUS: 01/21/25 10:[address]: Ovidio Whitmore DEPT: SURGICAL PATHOLOGY RECD BY: Diogenes Ulrich ENTERED: 01/21/25 15:17 SP TYPE: Calculi OTHR DR: Dr. Brandee Mejía MD Tissues: A - CALCULI Procedures: Surgery Specimen Level I HEADER OPERATION: Stone analysis PRE-OP DIAGNOSIS: Calculus of kidney TISSUE SUBMITTED: A- Kidney Stone GROSS DIAGNOSIS A. Kidney, calculus: * Urolithiasis (gross examination only) - see Comment. COMMENT The calculus is submitted in its entirety for chemical stone analysis. The results from this study will be reported separately. GROSS DESCRIPTION A. Received fresh labeled the patient's name and date of is a 0.5 cm light brown, irregular calculus. No sections are submitted. The specimen is for gross examination only. The specimen is sent for stone analysis. VT 01/21/2025 CPT:19457
== END | disposition home or self-care (01) ==
PROVIDERS: PCP Internal Medicine; Referring Provider Urology; Visit Provider Urology
DX: N20.0 Calculus of kidney (principal)
CPT/HCPCS: 82360; 88300